=== PATIENT | female | born 1940 | race Caucasian/White ===

== ENCOUNTER 2016-09-13 10:52 | Inpatient (IN) | payer MEDICARE ==
[2016-09-13] MEDS ORDERED: Ondansetron INJ* 2 MG/ML VIAL ONE (11:03)
[2016-09-13] MEDS ORDERED: Midazolam* 1 MG/ML 5 ML VIAL (5 MG) ONE (11:03)
[2016-09-13] MEDS ORDERED: VERAPAMIL 2.5 MG/ML 4 ML VIAL ONE (11:03)
[2016-09-13] MEDS ORDERED: fentaNYL* 50 MCG/ML 2 ML VIAL (100 MCG VIAL) ONE (11:03)
[2016-09-13] MEDS ORDERED: Heparin(*) 1000 UNIT/ML 10 ML VIAL CATH LAB IV ONE (11:03)
[2016-09-13] MEDS ORDERED: Iohexol 350 (CONTRAST) 200 ML MDV IV ONE ×2 (11:04→12:49)
[2016-09-13] MEDS ORDERED: Heparin 2 UNITS/ML IVPREMIX* 2,000 ML IV ONE (11:04)
[2016-09-13] MEDS ORDERED: nitroGLYCERIN DRIP* 500 ML ONE (11:04)
[2016-09-13] MEDS ORDERED: Lidocaine 1% INJ* 10 MG/ML 30 ML SDV ONE (11:04)
[2016-09-13] MEDS ORDERED: Heparin for STEMI(*) 5,000 UNITS/ML 1 ML VIAL IV ONE (11:08)
[2016-09-13] MEDS ORDERED: Ticagrelor* 90 MG TAB PO ONE (11:08)
[2016-09-13] MEDS ORDERED: nitroGLYCERIN DRIP* 25,000 MCG in PREMIX* 0 ML IV ONE (11:08)
[2016-09-13 11:23] LABS: Hematocrit 39 % (35-47); Hemoglobin 12.8 g/dl (12.0-16.0); Mean Corpuscular HGB Conc 33 g/dl (31-36); Mean Corpuscular Hemoglobin 31 pg (27-31); Mean Corpuscular Volume 94 fL (80-97); Mean Platelet Volume 10 um3 (7.4-10.4); Red Blood Count 4.16 10^6/ul (4.0-5.4); Red Cell Distribution Width 14 % (10.5-15)
[2016-09-13] MEDS: Nitroglycerin TAB 0.4 MG* 0.4 MG TAB SL PRN (11:28)
[2016-09-13 11:30] LABS: Albumin 3.9 g/dL (3.2-5.2); BUN/Creatinine Ratio 21.7 (8-20); Calcium 9.2 mg/dL (8.6-10.3); EGFR African American 85.7 (>60); EGFR Non-African American 66.7 (>60); Globulin 3.4 g/dL (2-4); Potassium 3.8 mmol/L (3.5-5.0); Total Bilirubin 0.6 mg/dL (0.2-1.0); Total Protein 7.3 g/dL (6.4-8.9)
[2016-09-13 11:34] LABS: Troponin I 0.03 ng/mL (<0.04)
--- NOTE | 2016-09-13 12:11 | RAD ---
INDICATION: ST elevation myocardial infarction COMPARISON: Chest x-ray dated December 30, 2015 TECHNIQUE: Single AP portable view of the chest was obtained. FINDINGS: Image quality is compromised due to the relative inferiority of a portable chest x-ray. Sternotomy wires are unchanged from the previous chest x-ray. Overlying a AED pads are noted. The heart and mediastinum exhibit normal size and contour. The lungs are grossly clear. There is no evidence of a large pleural effusion. Visualized bones are normal for the patient's age. IMPRESSION: No radiographic evidence for acute cardiopulmonary abnormality on this portable chest x-ray.
[2016-09-13] MEDS ORDERED: Nitroglycerin TAB 0.4 MG* 0.4 MG TAB SL PRN (14:59)
[2016-09-13] MEDS ORDERED: Morphine INJ* 4 MG/ML 1 ML CARPUJECT IV ONE (15:00)
[2016-09-13] MEDS ORDERED: NS 0.9% 1000 ML* 1,000 ML IV SCH (15:00)
[2016-09-13] MEDS ORDERED: Zolpidem TAB* 5 MG PO PRN (15:02)
[2016-09-13] MEDS ORDERED: Acetaminophen TAB* 325 MG PO PRN (15:02)
[2016-09-13] MEDS ORDERED: Ondansetron INJ* 2 MG/ML VIAL IV PRN (15:02)
[2016-09-13] MEDS: Captopril TAB* 12.5 MG PO SCH ×2 (16:00→21:10)
[2016-09-13] MEDS: Metoprolol Tartrate TAB* 25 MG PO SCH (16:02)
[2016-09-13 16:27] LABS: Troponin I 16.26 ng/mL (<0.04)
[2016-09-13] MEDS: Atorvastatin* 80 MG TAB PO SCH (17:47)
[2016-09-13] MEDS: Ticagrelor* 90 MG TAB PO SCH (21:10)
[2016-09-13 21:23] LABS: Troponin I 57.52 ng/mL (<0.04)
[2016-09-14] MEDS: Metoprolol Tartrate TAB* 25 MG PO SCH ×3 (00:18→17:25)
--- NOTE | 2016-09-14 01:32 | HP ---
HISTORY AND PHYSICAL: DATE OF ADMISSION: 09/13/16 PRIMARY CARE PHYSICIAN: Dr. Brody Caraballo. MACHINIST FIRST CLASS: Dr. Sandoval. HISTORY OF PRESENT ILLNESS: A 76-year-old woman with previous bypass grafting and multivessel, multilesion intervention presenting to the ER with high lateral non-ST elevation infarct. We have outside records which I have reviewed. She had bypass grafting in 2007 at [place] with a CASTAÑEDA to the LAD, and a sequential vein graft to diagonal and marginal. Cath on 05/24/08 revealed the vein graft to be occluded, the RCA was normal. The CASTAÑEDA to the LAD was patent, the left main circumflex had 60% to 80 % stenosis, was stented with a 3.0 x 15 drug-eluting stent, the proximal LAD diagonal was stented with a 2.5 x 12 drug-eluting stent, and the ostium of the LAD was balloon dilated 2.5 mm at the left main circumflex stent. On 09/28/08, she had stenting of the distal left main with a 3 x 12 drug-eluting stent. At that time, the LAD filled via the CASTAÑEDA. I believe all these procedures were performed in [place]. On 01/17/10, she had cath again I believe in [place] showing the stents in the circumflex, left main, and LAD were patent. The RCA was patent as was the CASTAÑEDA. She was here a year ago with troponin positive ACS. Cath by Dr. Phelps on 09/13/15 revealed the left main ostium to have high grade restenosis at 85%, the LAD had proximal tubular stenosis followed by occlusion just prior to the LAD diagonal stent. The circumflex had no significant stenosis. The RCA was normal. The CASTAÑEDA was patent and filled the diagonal via retrograde low LAD filling. The ostium of the left main was treated with a 3.0 x 12 Promus Premier drug-eluting stent post dilated to 3.4. She was on Brilinta for a short period of time, switched to Plavix because of cost. She has done well until 9 o'clock this morning when she had the onset of her ischemic pain. She presented in the ER where she had when 1/4-mm ST- elevation and one in aVL with lateral reciprocal depression. She was brought to the senior laboratory technician for cath. She has no PND or orthopnea, but has had exertional dyspnea. PAST MEDICAL HISTORY: Previous bypass grafting, hypertension, hyperlipidemia. MEDICATIONS: Prehospital medications: 1. Toprol-XL 25 mg daily. 2. Lisinopril 5 mg daily. 3. Synthroid unknown mg daily. 4. Plavix 75 daily. 5. Lipitor 80 mg daily. 6. Aspirin 81 mg daily. ALLERGIES: None. FAMILY HISTORY: Positive for premature coronary disease. SOCIAL HISTORY: She is a nonsmoker. REVIEW OF SYSTEMS: General: No weight loss. No fevers. PERSONAL CARE AIDE: No history of TIA or CVA. GI: She has a history of hemorrhoidal bleeding, evaluated with colonoscopy. She had her last episode a week or so ago. Remainder all negative. PHYSICAL EXAMINATION GENERAL: When seen in the ER, she was complaining of a fairly mild chest discomfort which subsequently resolved. VITAL SIGNS: Her blood pressure 184/97. HEENT: Without xanthelasma, scleral injection, or jaundice. EOMs normal. Cranial nerves grossly intact. LUNGS: She had a few rhonchi bilaterally, no dullness to percussion. No rales or wheezes. JVP was not visible. Carotids normal. No bruits. CARDIAC EXAM: Stable sternotomy, apex and RV not palpable, normal S1, S2, no gallop, murmur, or rub. ABDOMEN: Soft, nontender, aorta not palpable. No abdominal bruit, liver not palpable. Femoral pulses 2+. No bruits. EXTREMITIES: Radial pulses 2+. Pedal pulses 2+. She had no cyanosis, clubbing , or edema. SKIN: Warm and well perfused. PSYCH: She is oriented and appropriate. LABORATORY DATA: Chemistry is notable for random sugar of 155, CPK 694, but MB only 1.5 and troponin 0.03. BNP 173. Her LDL on Lipitor 80 is 127. Hemoglobin 11.9, MCV 98, normal platelet count. Chest x-ray without heart failure or infiltrate. EKG as above. IMPRESSION: 1. High lateral non-ST elevation infarct. She underwent emergent catheterization. She has had previous bypass with subsequent vein graft occlusion, has had multiple revascularization procedures of the protected left main - circumflex as well as the LAD diagonal. 2. Dyslipidemia. She is hyperlipidemic, on Lipitor 80, we will add . 3. History of intermittent internal hemorrhoidal bleeding. 4. LV regional systolic dysfunction. At last cath, the EF was 65 on post PVC beat with mid anterolateral hypokinesis. CC: Dr. Caraballo; Dr. Sandoval* [id number]/[facility] #: [id number] [place]
[2016-09-14 02:33] LABS: Troponin I 60.5 ng/mL (<0.04)
[2016-09-14 05:37] LABS: Hematocrit 35 % (35-47); Hemoglobin 11.5 g/dl (12.0-16.0); Mean Corpuscular HGB Conc 33 g/dl (31-36); Mean Corpuscular Hemoglobin 31 pg (27-31); Mean Corpuscular Volume 93 fL (80-97); Mean Platelet Volume 10 um3 (7.4-10.4); Red Blood Count 3.76 10^6/ul (4.0-5.4); Red Cell Distribution Width 14 % (10.5-15)
[2016-09-14] MEDS: Nitroglycerin TAB 0.4 MG* 0.4 MG TAB SL PRN (05:41)
[2016-09-14 05:50] LABS: BUN/Creatinine Ratio 19.7 (8-20); Calcium 8.9 mg/dL (8.6-10.3); EGFR African American 94.9 (>60); EGFR Non-African American 73.8 (>60); Potassium 3.6 mmol/L (3.5-5.0)
[2016-09-14] MEDS: Ticagrelor* 90 MG TAB PO SCH ×2 (08:43→22:11)
[2016-09-14] MEDS: Aspirin Low Dose CHEW TAB* 81 MG PO SCH (08:44)
[2016-09-14] MEDS: Captopril TAB* 12.5 MG PO SCH ×3 (08:44→22:04)
[2016-09-14 09:27] LABS: Troponin I 51.52 ng/mL (<0.04)
[2016-09-14] MEDS: Atorvastatin* 80 MG TAB PO SCH (17:25)
--- NOTE | 2016-09-14 22:52 | CATH ---
CATHETERIZATION REPORT: DATE: 09/13/16 PRIMARY: Dr. Carbaallo. MACHINE ROOM OPERATOR: Dr. Sandoval. PROCEDURES: Left radial artery access, right femoral artery access, bilateral selective coronary cineangiography, CASTAÑEDA angiography, saphenous vein graft angiography, left heart catheterization, left ventriculography. HISTORY: A 76-year-old woman with bypass grafting in 2007 with a CASTAÑEDA to the LAD, sequential vein graft to diagonal and circumflex OM. One year later, cath demonstrated occlusion of the vein graft. Subsequently, she has had stenting of the left main ostium, LAD into the diagonal, and left main into the circumflex. One year ago, she had re-stenting of the left main ostium for in- stent restenosis. At that time, angiogram showed an occluded LAD, patent CASTAÑEDA to the LAD which filled the diagonal antegrade through the stented segment which had proximal mild stenosis. The RCA was normal. She had anterolateral hypokinesis. She now presents with a high lateral non-ST elevation infarct with less than [address] elevation. Brilinta was changed in the past to Plavix because of cost. She has been compliant with her dual antiplatelet therapy. DESCRIPTION OF PROCEDURE: Left radial artery sheath: 6-F slender. Because of a brachial loop, catheter torque was severely impaired with 5-Estonian catheters. I did not upsize to 6-Estonian as she is a small woman. Instead, access was switched to the right common femoral where 6-Estonian sheath was placed. MEDICATIONS: 1. Subcu lidocaine. 2. IV Versed. 3. IV fentanyl. 4. In the ER, she received heparin and Brilinta loading dose. ADDITIONAL MEDICATIONS: 1. Heparin 4000 units. 2. IV nitroglycerin infusion continued. 3. Heparin 2000 units. DIAGNOSTIC CATHETERS: 5-F TIG from the left radial, 6-FL 3.5, EBU guide for the left coronary from the right common femoral access, 6-FR4, 6F JOY, 6F pigtail. The CASTAÑEDA ostium was engaged fairly well with the CASTAÑEDA catheter, better engagement likely would be achieved with a shorter tip CASTAÑEDA catheter. HEMODYNAMICS: Initial BP 138/80, LV 151/16-27, no aortic valve gradient on pullback. ANGIOGRAPHY: Left antecubital. The left brachial artery was injected. There is tortuosity at the elbow which was easily traversed with a Wholey wire, but subsequent catheter torque was very poor. Radial artery is about the size of a 5- Estonian catheter. The brachial is much larger. Left main: There is previously placed left main stent which is within the prior left main stent. Left main take-off is very superior. This left main stent extends into the circumflex. Left main stent has no re-stenosis, was very difficult to engage coaxially perhaps because the stent protrudes somewhat into the left sinus. LAD: The LAD is moderate as previously placed stent at the LAD diagonal junction which is beyond the LAD occlusion which is proximal. The CTL segment is short. Distal LAD fills from the CASTAÑEDA. Circumflex: The circumflex is moderate, not dominant, supplies a small first marginal and a number of small posterolaterals. The circumflex has no significant stenosis. RCA: The RCA is dominant, moderate, supplies a moderate PDA and posterolateral , has no significant stenosis. I see no RCA to diagonal collaterals. CASTAÑEDA: The JOY is moderate, patent, inserts into the mid LAD without insertion stenosis, fills the LAD antegrade to the apex as well as retrograde to the previously placed stent which extends from the LAD into the diagonal. The diagonal then fills antegrade from the retrograde portion of the LAD. The stent within the LAD segment is patent back to 2 mm to its proximal occlusion point. The antegrade part of the stent extending into the diagonal has railroad tracking of contrast suggestive of high-grade in-stent restenosis. The distal diagonal has a distribution similar to the LAD, has KARI-3 flow. At this point, her chest pain had resolved. Revascularization of the proximal diagonal stent is feasible, but technically potentially challenging, may best be done via retrograde recanalization of the LAD followed by antegrade recanalization of the LAD into the diagonal. LV gram: There is akinesis of the anterolateral wall and apex, visually estimated LVEF 35%. There is 1+ MR. Right common femoral: Sheath entry is in segment 2. There is no stenosis. CONCLUSION: 1. Non-ST elevation infarct, high lateral, due to high-grade in-stent restenosis at the LAD diagonal ostial stent, progressed compared to catheterization 1 year prior. The LAD TRUCK DRIVING is long-standing and short. Revascularization was not pursued because of complexity, resolution of symptoms , KARI-3 flow. She will be need to be evaluated for TRUCK DRIVING revascularization. 2. Left radial/brachial tortuosity rendering catheter torque suboptimal. 3. LV systolic dysfunction with regional wall motion abnormality. 4. Elevated LVEDP, otherwise normal left-sided hemodynamics. 5. Successful left radial artery puncture. 6. Successful hemostasis, right common femoral with Angio-Seal. CC: Dr. Caraballo; Burak Underwood * [id number]/[facility] #: [id number] [facility]
[2016-09-15] MEDS: Metoprolol Tartrate TAB* 25 MG PO SCH (03:22)
[2016-09-15 08:27] LABS: BUN/Creatinine Ratio 17.1 (8-20); Calcium 8.8 mg/dL (8.6-10.3); EGFR African American 86.9 (>60); EGFR Non-African American 67.6 (>60); Potassium 3.7 mmol/L (3.5-5.0)
[2016-09-15] MEDS ORDERED: Lisinopril TAB* 5 MG PO SCH (09:00)
[2016-09-15 09:44] LABS: Troponin I 17.19 ng/mL (<0.04)
[2016-09-15] MEDS: Lisinopril TAB* 5 MG PO SCH ×2 (09:45→21:25)
[2016-09-15] MEDS: Aspirin Low Dose CHEW TAB* 81 MG PO SCH (09:45)
[2016-09-15] MEDS: Metoprolol Tartrate TAB* 50 mg PO SCH ×2 (09:45→21:26)
[2016-09-15] MEDS: Ticagrelor* 90 MG TAB PO SCH ×2 (09:45→21:26)
[2016-09-15] MEDS: Atorvastatin* 80 MG TAB PO SCH (16:39)
[2016-09-16 08:29] LABS: BUN/Creatinine Ratio 18.3 (8-20); Calcium 8.8 mg/dL (8.6-10.3); EGFR African American 86.9 (>60); EGFR Non-African American 67.6 (>60); Potassium 3.6 mmol/L (3.5-5.0)
[2016-09-16] MEDS: Ticagrelor* 90 MG TAB PO SCH ×2 (09:27→21:13)
[2016-09-16] MEDS: Lisinopril TAB* 5 MG PO SCH ×2 (09:27→21:12)
[2016-09-16] MEDS: Aspirin Low Dose CHEW TAB* 81 MG PO SCH (09:28)
[2016-09-16] MEDS: Metoprolol Tartrate TAB* 50 mg PO SCH ×2 (09:28→21:12)
--- NOTE | 2016-09-16 12:57 | ECHO ---
Patient: COTY ISBELL [facility] Rec#: [id number] : 1940 Date: 09/16/2016 Age: 76y Height: 152.4 cm / 60.0 in Weight: 66.22 kg / 145.9 lbs Sex: F BSA: 1.63 Room#: 442 Admit Date#: 09/13/2016 Type: Inpatient Referring: Anderson Phelps MD Reading: Anderson Phelps MD Mold Yarn Supervisor: Glenna Ortiz CHANTELL CC: Brody Caraballo MD Transthoracic Echocardiogram Indication: NSTEMI/CAD BP: 131/50 HR: 63 Rhythm: NSR Findings History: CABG 2007,[place] 2007,PCIs in the past,HLD. Technical Comments: The study quality is good. Completed at 1115. Left Ventricle: There is a prominent septal knuckle. There is a focal wall motion abnormality present.The lateral apical wall and distal anterolateral wall appear mild to moderately hypokinetic. There is mildly decreased left ventricular systolic function. The estimated ejection fraction is 40-45%. Visually estimated LVEF is 45 % Abnormal left ventricular diastolic function is observed. Left Atrium: The left atrium is normal in size. Right Ventricle: The right ventricular cavity size is normal. The right ventricular global systolic function is normal. Right Atrium: The right atrial cavity size is normal. Aortic Valve: The aortic valve is trileaflet. There is mild to moderate aortic regurgitation. There is no evidence of aortic stenosis. Mitral Valve: The mitral valve leaflets are mildly thickened. There is mild mitral regurgitation. There is no evidence of mitral stenosis. Tricuspid Valve: The tricuspid valve leaflets are normal. There is mild to moderate tricuspid regurgitation. There is no tricuspid stenosis. Pulmonic Valve: The pulmonic valve appears normal. There is mild pulmonic regurgitation. There is no pulmonic stenosis. Pericardium: A pericardial fat pad is visualized. Aorta: There is no dilatation of the ascending aorta. There is no dilatation of the aortic arch. There is no dilation of the aortic root. Pulmonary Artery: The main pulmonary artery appears normal. Venous: The inferior vena cava appears normal in size. There is a greater than 50% respiratory change in the inferior vena cava dimension. Conclusions There is a focal wall motion abnormality present as described above. There is mildly decreased left ventricular systolic function. Visually estimated LVEF is 45 % There is mild mitral regurgitation. There is mild to moderate aortic regurgitation. There is mild to moderate tricuspid regurgitation. Compared to report of study from 05/22/2008 the LV systolic dusfunction is new, the degree of AR has increased (was mild). Measurements Name Value Normal Range RVIDd (AP) 2D 3.2 cm (0.9 - 2.6) RVDdMajor (2D) 2.5 cm (2.2 - 4.4) RAd ISD 4CH 3.5 cm (3.4 - 4.9) RA (A4C)W 2.8 cm (2.9 - 4.6) IVSd (2D) 1.7 cm (0.6 - 1) LVPWd (2D) 1.2 cm (0.6 - 1) LVIDd (2D) 3.6 cm (3.6 - 5.4) LVIDs (2D) 2.9 cm - LV FS (2D) 19 % (25 - 45) Aortic Annulus 1.9 cm (1.4 - 2.6) Ao root diameter (2D) 3.3 cm (2.1 - 3.5) Ascending Ao 3.3 cm (2.1 - 3.4) Aortic arch 2 cm (1.8 - 3.4) Descending Ao 0.8 cm - LA dimension (AP) 2D 3.4 cm (2.3 - 3.8) LAd ISD 4CH 3.2 cm (2.9 - 5.3) LA ISD 4CH W 3 cm (2.5 - 4.5) Name Value Normal Range LA ESV SP 4CH (A/L) 16 ml - LA ESV SP 2CH (A/L) 27 ml - LA ESV BP (A/L) 25 ml - LA ESV BP (A/L) index 15.15 ml/m2 - LA ESV SP 4CH (MOD) 16 ml - LA ESV SP 2CH (MOD) 25 ml - Name Value Normal Range MV E-wave Vmax 0.9 m/sec - MV deceleration time 178 msec - MV A-wave Vmax 1.04 m/sec - MV E:A ratio 0.86 ratio - LV septal e' Vmax 0.06 m/sec - LV lateral e' Vmax 0.06 m/sec - LV E:e' septal ratio 15 ratio - LV E:e' lateral ratio 15 ratio - Name Value Normal Range AV Vmax 1.5 m/sec - AV VTI 32.3 cm - AV peak gradient 9.16 mmHg - AV mean gradient 4.9 mmHg - LVOT Vmax 0.9 m/sec - LVOT VTI 20.6 cm - LVOT peak gradient 3.5 mmHg - LVOT mean gradient 2.2 mmHg - AR PHT 415 msec - AR peak gradient 50.1 mmHg - Name Value Normal Range TR Vmax 2.5 m/sec - TR peak gradient 25 mmHg - RAP 3 mmHg - RVSP 28 mmHg - IVC diameter 1.5 cm - Name Value Normal Range PV Vmax 0.9 m/sec - PV peak gradient 2.96 mmHg -
[2016-09-16] MEDS: Atorvastatin* 80 MG TAB PO SCH (16:24)
--- NOTE | 2016-09-16 16:32 | ED ---
Rachel Kaur Adam, scribed for Jonnathan Holder MD on 09/13/16 at 1102 . HPI Chest Pain - HPI Summary HPI Summary: A 76 y/o female presents to the ED BIBA for a STEMI called in the field by EMS. Patient had a sudden onset of chest pain (05/23) that started around 09:00 this morning with associated SOB, nausea, and vomiting. At home, she took 324 aspirin and used 2 of her own nitroglycerin with no alleviation of pain. Patient has a significant cardiac history with CABG at [facility] in 2007 and September 2008 (circumflex and diagonal) and on 09/12/[address] Phelps. She denies any diabetes, alcohol, or tobacco use. - History of Current Complaint Chief Complaint: EDChestPainROMI Time Seen by Provider: 09/13/16 10:53 Hx Obtained From: Patient, EMS Onset/Duration: Started Hours Ago - 09:00 Time of Onset: 09:00 Timing: Constant Initial Severity: Moderate Current Severity: Severe Pain Intensity: 9 Pain Scale Used: 0-10 Numeric Chest Pain Location: Diffuse Chest Pain Radiates: Yes Chest Pain Radiates To:: Arm, Neck Alleviating Factor(s): Nothing Associated Signs and Symptoms: Positive: Shortness of Breath, Nausea, Vomiting - Allergy/Home Medications Allergies/Adverse Reactions: Allergies Allergy/AdvReac Type Severity Reaction Status Date / Time Cats Allergy Intermediate Congestion Uncoded 06/13/15 17:56 Home Medications: Home Medications Atorvastatin* [Lipitor*] 80 mg PO DAILY 09/13/16 [History Confirmed 09/13/16] PMH/Surg Hx/FS Hx/Imm Hx Endocrine/Hematology History: Reports: Hx Thyroid Disease Denies: Hx Diabetes Cardiovascular History: Reports: Hx Hypertension, Hx Myocardial Infarction - 2014, 2 stents placed by [facility], Other Cardiovascular Problems/Disorders Denies: Hx Congestive Heart Failure, Hx Pacemaker/ICD Respiratory History: Denies: Hx Asthma, Hx Chronic Obstructive Pulmonary Disease (COPD), Other Respiratory Problems/Disorders GI History: Reports: Other GI Disorders - 'sensitive stomach' Denies: Hx Ulcer Sensory History: Reports: Hx Contacts or Glasses Opthamlomology History: Reports: Hx Contacts or Glasses - Surgical History Surgery Procedure, Year, and Place: Triple Bypass 2007, Stents placed 2008 and 2014. Hysterectomy Infectious Disease History: Denies: Hx Clostridium Difficile, Hx Hepatitis, Hx Human Immunodeficiency Virus (HIV), History Other Infectious Disease, Traveled Outside the [place] in Last 30 Days - Family History Known Family History: Positive: Cardiac Disease - bypass, CHF, father - [place] - Social History Alcohol Use: None Hx Substance Use: No Substance Use Type: Reports: None Hx Tobacco Use: No Smoking Status (MU): Never Smoked Tobacco Review of Systems Constitutional: Negative Negative: Fever, Chills Eyes: Negative Negative: Erythema ENT: Negative Negative: Sore Throat Positive: Chest Pain Positive: Shortness Of Breath. Negative: Cough Positive: Vomiting, Nausea. Negative: Abdominal Pain Genitourinary: Negative Negative: dysuria, hematuria Musculoskeletal: Negative Negative: Myalgia, Edema Skin: Negative Negative: Rash Neurological: Negative, Other - Negative: dizziness Psychological: Normal All Other Systems Reviewed And Are Negative: Yes Physical Exam - Summary Physical Exam Summary: Constitutional: Well-developed, Well-nourished, Alert. (-) Distressed Skin: Warm, Dry HENT: Normocephalic; Atraumatic Eyes: Conjunctiva normal Neck: Musculoskeletal ROM normal neck. (-) JVD, (-) Stridor, (-) Tracheal deviation Cardio: Rhythm regular, rate normal, Heart sounds normal; Intact distal pulses; The pedal pulses are 2+ and symmetric. Radial pulses are 2+ and symmetric. (-) Murmur Pulmonary/Chest wall: Effort normal. (-) Respiratory distress, (-) Wheezes, (-) Rales Abd: Soft, (-) Tenderness, (-) Distension, (-) Guarding, (-) Rebound Musculoskeletal: (-) Edema Lymph: (-) Cervical adenopathy Neuro: Alert, Oriented x3 Psych: Mood and affect Normal Diagnostics - Laboratory Result Diagrams: 09/13/16 11:03 09/13/16 11:03 Lab Statement: Any lab studies that have been ordered have been reviewed, and results considered in the medical decision making process. - Radiology CXR Xray Interpretation: No Acute Changes Radiology Interpretation Completed By: Radiologist - EKG 10:52 Cardiac Rate: NL - 66 EKG Interpretation: 1 mm elevation in I and AVL. Q wave in V1-V5. Chest Pain Course/Dx - Course Course Of Treatment: Patient's CP went from a 05/23 when she arrived in the ED to a 2 when she left for catheterization. - Diagnoses Provider Diagnoses: STEMI Discharge - Discharge Plan Condition: Guarded Disposition: ADMITTED TO [facility] The documentation as recorded by the Rachel valentin Adam accurately reflects the service I personally performed and the decisions made by me, Jonnathan Holder MD.
[2016-09-17] MEDS: Lisinopril TAB* 5 MG PO SCH (08:12)
[2016-09-17] MEDS: Ticagrelor* 90 MG TAB PO SCH (08:12)
[2016-09-17] MEDS: Metoprolol Tartrate TAB* 50 mg PO SCH (08:12)
[2016-09-17] MEDS: Aspirin Low Dose CHEW TAB* 81 MG PO SCH (08:12)
[2016-09-17 08:14] VITALS: BP 125/58
[2016-09-17] MEDS ORDERED: amLODIPine TAB* 5 MG PO SCH (18:00)
--- NOTE | 2016-09-18 11:27 | DS ---
DISCHARGE SUMMARY: DATE OF ADMISSION: 09/13/2016. DATE OF DISCHARGE: 09/17/2016. FINAL DIAGNOSES: 1. Non-ST elevation myocardial infarction. 2. Stenotic coronary artery disease. 3. Hypothyroidism. 4. Hypertension. 5. Hyperlipidemia. HISTORY OF PRESENT ILLNESS: The patient is a pleasant 76-year-old female who presented on 09/13/16 to [facility] in the throes of a high-lateral non- ST elevation myocardial infarction. Please refer to Dr. James' H and P for complete details. She was taken emergently to the cardiovascular laboratory where cardiac catheterization revealed patent CASTAÑEDA graft to the LAD that retrograde filled back to a higher diagonal branch that had been stented in the past. This stented area showed diffuse disease with possible thrombus as well, but by the timing of this injection showed KARI 3 flow with significant stenosis left. The choctaw LAD was totally occluded after its proximal area. Prior stents in the left main into the circumflex were widely patent. A vein graft that was known to skip from the diagonal to the obtuse marginal branch was totally occluded. The right coronary artery was a dominant vessel with no significant stenosis. Given these findings, Dr. James advanced medical management with dual antiplatelet and beta- rolanda therapy and CATE inhibition as she had significant left ventricular systolic function on left ventriculogram at the time of the procedure with an EF estimated at 35% with 1+ mitral regurgitation. During the course of the hospitalization, a transthoracic echocardiogram was performed on the , which revealed improvement of overall LV function from 35% up to 45% with focal lateral apical and distal anterolateral wall, [id number] hypokinesis. There was mild mitral regurgitation identified with [id number] aortic regurgitation and mild-to- moderate tricuspid regurgitation. Over the course of the hospitalization with medical management, she did well, was up and about using a walker without having any significant bouts of chest, throat, jaw or arm discomfort similar to presentation. She had mild shortness of breath at rest that was felt to be most likely secondary to Brilinta therapy and caffeine was instituted twice a day to counteract this. PHYSICAL EXAMINATION: On the day of discharge, her examination revealed blood pressure 125/58; pulse was in the 60s, regular; respirations 16; O2 saturation 95% on room air. Neck was supple. No increased JVP. Carotid with good upstroke and volume without bruits. Conjunctivae were pink. Sclerae clear. Mouth revealed moist mucosa. Lungs revealed no accessory muscle usage. There was good excursion. Lungs were relatively clear to A and P. Heart revealed no visible heaves, no palpable heaves or thrills. Normal S1, S2 with a faint systolic murmur. No significant diastolic murmur. Abdomen was soft, nontender. The left radial artery wound site was well healed (of note, the left radial artery approach was initially attempted but aborted after there was difficulty with torquing the catheter. This approach was aborted and the procedure was finished from the right femoral artery approach). The right femoral artery area was well-healed as well. Distal pulses were intact. Neuro : The patient was alert and oriented with normal mentation. Musculoskeletal: The patient with fairly normal gait. Psychiatric: The patient with normal affect. LABORATORY DATA: Last laboratory test from 09/16/16 showed normal BUN and creatinine of 15 and 0.8. Of note, during the course of the hospitalization, the CPK on presentation was 694 but the MB was only 1.5 and the troponin was 0.03. Peak CPK, MB, and troponins occurred at approximately 8 hours after admission with a total CPK of 1440, an MB of 170, and a troponin at that point of 57, that peaked 6 hours later at 60. MEDICATIONS AT THE TIME OF DISCHARGE: Included: 1. Aspirin 81 mg a day. 2. Ticagrelor 90 mg twice a day 3. Norvasc 2.5 mg in the evening. 4. Lisinopril 2.5 mg twice a day. 5. Metoprolol tartrate 50 mg twice a day. 6. Nitroglycerin as needed. DISCHARGE INSTRUCTIONS: The patient will be following up with Dr. Yaniv Sandoval on September 21, and that appointment was given to her to make sure she will follow up. I personally spoke with Dr. Sandoval to give him Dr. James' and our recommendation regarding the need for revascularization attempt of the totally occluded LAD, either antegrade through the left main stent or else with more difficulty in a retrograde approach down the CASTAÑEDA graft. He understood this and will be setting up for this after he sees her in the office. Her other medication at the time of discharge included atorvastatin 80 mg a day and she was given a script for Zetia 10 mg a day to start in addition to the atorvastatin in order to get her cholesterol back down as her total cholesterol at the time of admission was 127. She will follow these risk factors up with Dr. Caraballo and also with Dr. Sandoval. The patient was given a cardiac education booklet. She was also given a DVD of her cath and her echo to give to Dr. Sandoval with the actual reports. Copies of the cath report, and the H and P, and all EKGs, and echo reports were faxed over to Dr. Sandoval's office. CC: Dr. Brody Caraballo; Dr. Cb Sandoval, Appellate Law Clerk, at the [facility] on [address] in [place]* [id number]/CPS #: [id number]
== END 2016-09-17 16:20 | disposition home or self-care (01) | DRG 281 ==
LOC: ED 10:52 → ICU 11:20 → MEDTELE 09-15 22:15
PROVIDERS: ADMIT Internal Medicine Cardiovascular Disease; ATTEND Internal Medicine Cardiovascular Disease
PROC: B2151ZZ Fluoroscopy of Left Heart using Low Osmolar Contrast (ICD-10-PCS; 2016-09-13)
PROC: B2131ZZ Fluoroscopy of Multiple Coronary Artery Bypass Grafts using Low Osmolar Contrast (ICD-10-PCS; 2016-09-13)
PROC: 4A023N7 Measurement of Cardiac Sampling and Pressure, Left Heart, Percutaneous Approach (ICD-10-PCS; 2016-09-13)
PROC: B31J1ZZ Fluoroscopy of Left Upper Extremity Arteries using Low Osmolar Contrast (ICD-10-PCS; 2016-09-13)
PROC: B2111ZZ Fluoroscopy of Multiple Coronary Arteries using Low Osmolar Contrast (ICD-10-PCS; principal; 2016-09-13 11:30)
DX: T82.855A Stenosis of coronary artery stent, initial encounter (principal); I21.4 Non-ST elevation (NSTEMI) myocardial infarction; I47.2 Ventricular tachycardia; Z91.048 Other nonmedicinal substance allergy status; Z95.1 Presence of aortocoronary bypass graft; I10 Essential (primary) hypertension; I25.2 Old myocardial infarction; Z82.49 Family history of ischemic heart disease and other diseases of the circulatory system; E78.5 Hyperlipidemia, unspecified; I25.10 Atherosclerotic heart disease of native coronary artery without angina pectoris; E03.9 Hypothyroidism, unspecified; I08.3 Combined rheumatic disorders of mitral, aortic and tricuspid valves; Z79.82 Long term (current) use of aspirin; I77.1 Stricture of artery; Y84.0 Cardiac catheterization as the cause of abnormal reaction of the patient, or of later complication, without mention of misadventure at the time of the procedure; Z79.02 Long term (current) use of antithrombotics/antiplatelets
CPT/HCPCS: 36415; 71010; 80048; 80053; 82550; 82553; 83605; 83721; 83880; 84484; 85025; 85610; 85730; 87641; 93005; 93306; 93459; 99285; A9270-GY; C1760; C1887; J1644; J2250; J2405; J3010

== ENCOUNTER 2016-09-26 18:24 | Inpatient (IN) | payer MEDICARE ==
[2016-09-26 19:07] LABS: Hematocrit 34 % (35-47); Hemoglobin 11.1 g/dl (12.0-16.0); Mean Corpuscular HGB Conc 33 g/dl (31-36); Mean Corpuscular Hemoglobin 30 pg (27-31); Mean Corpuscular Volume 93 fL (80-97); Mean Platelet Volume 10 um3 (7.4-10.4); Red Blood Count 3.67 10^6/ul (4.0-5.4); Red Cell Distribution Width 14 % (10.5-15); White Blood Count 8.4 10^3/ul (3.5-10.8)
--- NOTE | 2016-09-26 19:10 | RAD ---
INDICATION: Chest pain COMPARISON: September 13, 2016 TECHNIQUE: An AP portable view obtained at 1845 hours is submitted. FINDINGS: Bones/Soft Tissues: There are no acute bony findings. There is sternotomy Cardiomediastinal: The cardiomediastinal silhouette is normal. Lungs: There are no infiltrates. Pleura: There are no pleural effusions. Other: None IMPRESSION: POSTOPERATIVE CHANGE. NO ACTIVE DISEASE.
[2016-09-26 19:24] LABS: Albumin 3.8 g/dL (3.2-5.2); BUN/Creatinine Ratio 15.7 (8-20); Calcium 9.2 mg/dL (8.6-10.3); EGFR African American 52.5 (>60); EGFR Non-African American 40.8 (>60); Magnesium 2.2 mg/dL (1.9-2.7); Potassium 3.9 mmol/L (3.5-5.0); Total Bilirubin 0.5 mg/dL (0.2-1.0); Total Protein 6.8 g/dL (6.4-8.9)
[2016-09-26 19:34] LABS: Troponin I 1.71 ng/mL (<0.04)
[2016-09-26 20:08] LABS: TSH (Thyroid Stimulating Horm) 4.58 mcIU/mL (0.34-5.60)
--- NOTE | 2016-09-26 21:48 | ED ---
Yuniel Kaur Billy, scribed for Rodolfo Gil MD on 09/26/16 at 1903 . HPI Chest Pain - HPI Summary HPI Summary: Patient is a 76 year-old female coming to [facility] presenting with constant chest pain starting earlier tonight, lasting approximately 20 minutes. Her daughter reports that her symptoms began shortly after exertion. Her pain was resolved with ASA and 2x NTG STEAM OVEN OPERATOR. She states that her symptoms felt similar to a STEMI she had 2 weeks ago; she describes SOB, nausea, and diaphoresis today. She was discharged from [place] today after an unsuccessful attempt to put in a stent. - History of Current Complaint Chief Complaint: EDChestPainROMI Time Seen by Provider: 09/26/16 18:27 Hx Obtained From: Patient, Family/Auto Collision Repair Instructor Onset/Duration: Started Hours Ago, Resolved Timing: Constant, Lasting Minutes - 20 minutes Initial Severity: Moderate Current Severity: Mild Chest Pain Location: Diffuse Chest Pain Radiates: No Aggravating Factor(s): Exertion Alleviating Factor(s): Nothing Associated Signs and Symptoms: Positive: Chest Pain, Shortness of Breath, Diaphoresis, Nausea - Additional Pertinent History Primary Care Physician: [id number] - Allergy/Home Medications Allergies/Adverse Reactions: Allergies Allergy/AdvReac Type Severity Reaction Status Date / Time Cats Allergy Intermediate Congestion Uncoded 06/13/15 17:56 PMH/Surg Hx/FS Hx/Imm Hx Endocrine/Hematology History: Reports: Hx Thyroid Disease Denies: Hx Diabetes Cardiovascular History: Reports: Hx Hypercholesterolemia, Hx Hypertension, Hx Myocardial Infarction - 2015, 2 stents placed by [facility], Other Cardiovascular Problems/Disorders Denies: Hx Congestive Heart Failure, Hx Pacemaker/ICD Respiratory History: Denies: Hx Asthma, Hx Chronic Obstructive Pulmonary Disease (COPD), Other Respiratory Problems/Disorders GI History: Reports: Hx Gall Bladder Disease, Other GI Disorders - 'sensitive stomach' Denies: Hx Gastrointestinal Bleed, Hx Ulcer Musculoskeletal History: Reports: Hx Back Problems - ruptured disk, cortizone injections Sensory History: Reports: Hx Contacts or Glasses Opthamlomology History: Reports: Hx Contacts or Glasses - Surgical History Surgery Procedure, Year, and Place: Triple Bypass 2007, Stents placed 2008 and 2015. Hysterectomy Infectious Disease History: No Infectious Disease History: Denies: Hx Clostridium Difficile, Hx Hepatitis, Hx Human Immunodeficiency Virus (HIV), History Other Infectious Disease, Traveled Outside the [place] in Last 30 Days - Family History Known Family History: Positive: Cardiac Disease - bypass, CHF, father - ID - Social History Alcohol Use: None Hx Substance Use: No Substance Use Type: Reports: None Hx Tobacco Use: No Smoking Status (MU): Never Smoked Tobacco Review of Systems Positive: Skin Diaphoresis Positive: Chest Pain Positive: Shortness Of Breath Positive: Nausea All Other Systems Reviewed And Are Negative: Yes Physical Exam - Summary Physical Exam Summary: VITAL SIGNS: Reviewed. GENERAL: Patient is a well developed and nourished female who is lying comfortable in the stretcher. Patient is not in any acute respiratory distress. HEAD AND FACE: No signs of trauma. No ecchymosis, hematomas or skull depressions. No sinus tenderness. EYES: PERRLA, EOMI x 2, No injected conjunctiva, no nystagmus. EARS: Hearing grossly intact. Ear canals and tympanic membranes are within normal limits. MOUTH: Oropharynx within normal limits. NECK: Supple, trachea is midline, no adenopathy, no JVD, no carotid bruit, no c- spine tenderness, neck with full ROM. CHEST: Symmetric, no tenderness at palpation LUNGS: Clear to auscultation bilaterally. No wheezing or crackles. CVS: Regular rate and rhythm, S1 and S2 present, no murmurs or gallops appreciated. ABDOMEN: Soft, non-tender. No signs of distention. No rebound no guarding, and no masses palpated. Bowel sounds are normal. EXTREMITIES: FROM in all major joints, no edema, no cyanosis or clubbing. Left arm with positive swelling and ecchymosis after cardiac cath. No induration and signs of cellulitis. NEURO: Alert and oriented x 3. No acute neurological deficits. Speech is normal and follows commands. SKIN: Dry and warm Triage Information Reviewed: Yes Vital Signs On Initial Exam: Initial Vitals Temp Pulse Resp BP Pulse Ox 97.5 F 68 14 108/60 95 09/26/16 18:28 09/26/16 18:28 09/26/16 18:28 09/26/16 18:28 09/26/16 18:28 Vital Signs Reviewed: Yes Diagnostics - Vital Signs Vital Signs Temp Pulse Resp BP Pulse Ox 09/26/16 18:28 97.5 F 68 14 108/60 95 - Laboratory Result Diagrams: 09/26/16 19:01 09/26/16 19:01 Lab Statement: Any lab studies that have been ordered have been reviewed, and results considered in the medical decision making process. - Radiology CXR Xray Interpretation: No Acute Changes Radiology Interpretation Completed By: Radiologist - EKG 1821 EKG Interpretation: NSR 70 bpm; TWI in I, aVL, V3-V6 EKG Comparison: No Significant Change - Compared to 09/16/16 Re-Evaluation - Re-Evaluation First Eval Re-Evaluation Time: 21:22 Change: Unchanged Comment: She remains asymptomatic. Chest Pain Course/Dx - Course Assessment/Plan: Patient is a 76 year-old female coming to [facility] [place] presenting with constant chest pain starting earlier tonight, lasting approximately 20 minutes. Her daughter reports that her symptoms began shortly after exertion. Her pain was resolved with ASA and 2x NTG STEAM OVEN OPERATOR. She states that her symptoms felt similar to a STEMI she had 2 weeks ago; she describes SOB, nausea, and diaphoresis today. She was discharged from [place] today after an unsuccessful attempt to put in a stent. Bloodwork WNL except for a slight normocytic normochromic anemia, creatinine of 1.27, trop of 1.71, and BNP of 329. CXR shows no active disease. EKG shows a sinus rhythm without any changes compared to a previous EKG on 09/16/16. At this point I discussed the case with Dr. Shore from [place], who is covering for Dr. Luciano, the patient's logistic manager, and he recommended that the patient be admitted here to track the troponins. If her troponin decreases, she can be discharged home, but if it increases, he should be notified for further instructions. At this point, the patient is hemodynamically stable, A&Ox3. I discussed the case with Dr. Valenzuela, who accepted the patient for admission. - Chest Pain Differential Diagnosis/HQI/PQRI: Acute ID, ACS, Angina, Chest Wall, Lower Respiratory Infection - Diagnoses Provider Diagnoses: chest pain with no ACS - Provider Notifications Discussed Care Of Patient With: Dr. Shore ([place]) @ 2129: recommends admitting the patient to [facility] [place] and monitoring troponin overnight; should troponin increase, he recommends having the patient transferred to [place]. Dr. Valenzuela ( hospitalist) @ 2131: accepts admission. Discharge - Discharge Plan Condition: Stable Disposition: ADMITTED TO [facility] Referrals: Brody Caraballo MD [Primary Care Provider] - The documentation as recorded by the Yuniel valentin Billy accurately reflects the service I personally performed and the decisions made by me, Rodolfo Gil MD.
[2016-09-26] MEDS ORDERED: Nitroglycerin TAB 0.4 MG* 0.4 MG TAB SL PRN (23:01)
[2016-09-26] MEDS: Metoprolol Tartrate TAB* 50 mg PO SCH (23:57)
[2016-09-26] MEDS: Lisinopril TAB* 5 MG PO SCH (23:57)
[2016-09-26] MEDS: Ticagrelor* 90 MG TAB PO SCH (23:57)
[2016-09-27 01:03] LABS: Urine Bacteria 3+ (Absent); Urine Bilirubin Negative (Negative); Urine Glucose Negative (Negative); Urine Nitrite Positive (Negative)
[2016-09-27] MEDS ORDERED: Levothyroxine TAB* 25 MCG TAB PO SCH (06:00)
[2016-09-27] MEDS ORDERED: Atorvastatin* 80 MG TAB PO SCH (09:00)
[2016-09-27] MEDS ORDERED: Aspirin Low Dose CHEW TAB* 81 MG PO SCH (09:00)
[2016-09-27] MEDS ORDERED: amLODIPine TAB* 5 MG PO SCH (09:00)
[2016-09-27] MEDS: Metoprolol Tartrate TAB* 50 mg PO SCH (10:02)
[2016-09-27] MEDS: Ticagrelor* 90 MG TAB PO SCH (10:02)
[2016-09-27] MEDS: Lisinopril TAB* 5 MG PO SCH (10:03)
--- NOTE | 2016-09-27 13:23 | HP ---
HISTORY AND PHYSICAL: DATE OF ADMISSION: 09/27/16 CHIEF COMPLAINT: Chest pain. HISTORY OF PRESENT ILLNESS: The patient is a 76-year-old woman who was just discharged from this hospital on 09/17/16 after having a non-STEMI, but they were unable to advance the cardiac cath to place a stent, so she was discharged in followup with [facility]. Unfortunately, she went to [facility] and was discharged there this morning with the same results. Subsequent to getting home, at about 1 p.m., she developed a chest pain. The pain was about 9/10 in severity. It was enough that she slid out of the chair to the floor. She had shortness of breath associated with it, nausea and sweating and felt clammy. She said that it felt just like the heart attack she had a couple of week ago. She came to our ER, did have an elevated troponin, but was actually down from what she had before. A call was made to the on-call nurse emergency at [place], who said there was little they could do. So she was admitted just to make sure her troponins do not bump and to medically manage her at this point. The patient was in agreement with that plan and in fact wanted to go home as soon as she was ready. PAST MEDICAL HISTORY: Significant for: 1. Coronary artery bypass graft in 2015. 2. Hypertension. 3. Hyperlipidemia. ALLERGIES: She has no known drug allergies. FAMILY HISTORY: Reviewed, positive for coronary artery disease. SOCIAL HISTORY: No tobacco, alcohol or recreational drug use. Her daughter, Larry Fabian [phone] is her healthcare proxy. REVIEW OF SYSTEMS: A 14-point review of systems was completed with the patient. All pertinent positives and negatives are in the history of present illness; otherwise, it is negative. PHYSICAL EXAMINATION GENERAL: Pleasant woman lying in bed, in no acute distress. VITAL SIGNS: Temperature 97.5 degrees, heart rate is 68 beats per minute, respiratory rate is 14 breaths per minute, pulse ox 95%, blood pressure 108/60. HEENT: Normocephalic and atraumatic. Pupils equal, round and reactive to light. Moist mucous membranes. NECK: Supple with no JVD, bruits, palpable thyroid or lymphadenopathy. CHEST: Clear to auscultation and percussion bilaterally. CARDIOVASCULAR: S1, S2 appreciated. Regular rate and rhythm. No murmurs, gallops or rubs. ABDOMEN: Positive bowel sounds in all 4 quadrants. Soft, nontender, nondistended. No hepatosplenomegaly. EXTREMITIES: No cyanosis, clubbing or edema. +2 peripheral pulses bilaterally. NEUROLOGICAL: Alert and oriented x3. She moves all extremities. SKIN: No rashes and only evidence of hematoma on her left brachial area where she had a cardiac cath done. DIAGNOSTIC STUDIES/LAB DATA: White count is 8.4, hemoglobin 11.1, hematocrit 34, platelets are 254. Sodium is 137, potassium 4.9, chloride is 102, CO2 of 27, BUN 20, creatinine 1.27, glucose is 103. Troponin is 1.71, which is elevated, but down from what it was when she was here last week. Urinalysis is positive +3 wbc's, +2 rbc's, +3 bacteria, +3 leukocyte esterase. Her chest x-ray was interpreted by Radiology as postoperative changes, no active disease. EKG shows normal sinus rhythm at 70 beats per minute, left axis deviation, left anterior hemiblock, slipped Ts in V3 through V6 and I and aVL, which is unchanged from her prior EKG. ASSESSMENT AND PLAN: 1. Chest pain. It does sound cardiac, but there is little we can do at this point. We will cycle her troponins and if they just continue to trend downwards , she will likely be discharged home as early as tomorrow. If they do bump or she has more chest pain, we have been advised from the nurse emergency on-call at [place] to give them a call for assistance in her management. 2. Hypertension. Adequate control. Continue current regimen. 3. Hypothyroidism. Stable. Continue Synthroid. 4. Fluids, electrolytes, and nutrition. Heart healthy diet 5. Deep vein thrombosis prophylaxis. Heparin subcu. 6. The patient is a full code. TIME SPENT: Over 75 minutes were spent on this H and P, and more than 40 minutes of which was spent in direct [id number] contact with the patient in evaluation, physical exam, and counseling, and coordination of care. CC: Dr. Brody Caraballo * [id number]/[facility] #: [id number] MTDD
[2016-09-27] MEDS ORDERED: Nitroglycerin 0.3 MG/HR PATCH* (7.5 MG) TRANSDERM SCH (14:00)
[2016-09-27] MEDS ORDERED: Nitroglycerin 0.2 MG/HR PATCH* (5 MG) TRANSDERM SCH (14:00)
[2016-09-27] MEDS ORDERED: Nitroglycerin 0.1 mg/Hr PATCH* (2.5 MG) TRANSDERM SCH (14:00)
[2016-09-27] MEDS ORDERED: Heparin VIAL(*) 5000 UNITS/ML VIAL (FIVE THOUSAND) SUBCUT SCH (14:00)
--- NOTE | 2016-09-27 16:37 | PN ---
Hospitalist Progress Note HOSPITALIST ADDENDUM Patient evaluated at bedside multiple times today. Her presentation is concerning - she describes chest heaviness associated with diaphoresis, her daughter describes cyanosis and a thready pulse. I'm concerned with ischemia and arrhythmias. Although she is asymptomatic now, with no significant arrhythmias and troponins trending down, after reviewing her records and discussing her case with Cardiology (Dr. Cardoza), I believe the most prudent course of action is to transfer to [facility] to be re-evaluated by Dr. Luciano. She has complex CAD with very difficult access (unsucessful through left wrist and both femorals. Last intervention was through her left braquial) and her cath at [facility] lasted two and a half hour trying to cross the LAD lesion in to the diagonal branch. Dr. Luciano was able to stent her CASTAÑEDA, but felt if she continued to be symptomatic, he would try to open the chronically occluded LAD. Our Interventionalist feels he cannot intervene on her lesions here and I believe she would be safer at [facility] if an acute event were to occur, as Dr. Luciano was planning to intervene through a different approach (subclavian) in the future. Patient and daughter updated and agreeable with plan.
[2016-09-27 17:03] VITALS: BP 103/56
--- NOTE | 2016-09-27 18:33 | CONS ---
CONSULTATION REPORT: DATE OF CONSULT: 09/27/16 REASON FOR CONSULT: Atherosclerotic heart disease and chest pain. CHIEF COMPLAINT: I thought I was having heart attack. HISTORY OF PRESENT ILLNESS: Ms. Mendosa is a very nice 76-year-old woman who is a patient of Dr. Hassan. I first met her on the of 2015 for crescendo angina that she developed after having held her medications for 2 years. The patient has a history of bypass grafting at 2007 at [place], in addition to history of stents. The patient underwent cardiac catheterization in our center 09/13/16 and was found to have left main stent with no restenosis. Moderate sized LAD with a stent in that LAD diagonal junction and the distal LAD fills in the [place]. The circumflex is moderate in size nondominant with no significant stenosis. The right coronary artery was dominant, moderate in size, no significant stenosis. The [place] to the LAD is moderate in size and patent. There were suggestion from the [place] images of high grade in-stent stenosis of the proximal LAD sent extending into the diagonal. The patient was unable to be revascularized in our institution and the patient was underwent an repeat cath and stenting with Dr. James in [place], [place], September 25. Record from [place] revealed that this was a complex extensive procedure lasting 2-1/2 hours with a stent placed in the [place]. They were unable to cross the LAD itself into the diagonal. Dr. Luciano dictated that the next step will be to try to open the chronically occluded LAD and per verbal reports from her daughter, this apparently be tried via subclavian approach. The patient went home on the and shortly after going home, the left brachium started to bleed and become swollen and tense, which worried her. She and her daughter were planning to come to the emergency room to be evaluated when she developed chest pain and she said she thought she was going to have a heart attack. I did not talk to the daughter personally, but according to the hospitalist and reports from the daughter, the patient turned jimenez and was very short of breath, very diaphoretic, clammy, had to sit down, her daughter got a very low pulse. She was brought here. The patient herself estimates that she had pain and symptoms for an hour. PAST MEDICAL HISTORY: The patient has a past medical history of atherosclerotic heart disease as described above with bypass surgery in 2007 and her most stenting 09/25/16. History of hypertension, dyslipidemia, hypothyroid disease. MEDICATIONS: At discharge include: 1. Amlodipine 5 mg a day. 2. Aspirin 81 mg a day. 3. Atorvastatin 80 mg a day. 4. Brilinta 90 mg b.i.d. 5. Lotrisone cream. 6. Levothyroxine 25 mcg a day. 7. Lisinopril 2.5 mg a day. 8. Metoprolol 50 mg b.i.d. 9. Nitroglycerin p.r.n. 10. Tramadol 50 mg q.h.s. ALLERGIES: She has no known drug allergies. FAMILY HISTORY: Positive for early atherosclerotic heart disease. Her father had early coronary disease with myocardial infarction. Her brother had bypass surgery before the age of 51. Mother had congestive heart failure. SOCIAL HISTORY: Nonsmoker, nondrinker. 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 She is the main support for a son with disability, a daughter with cerebral palsy, and with Alzheimer. She has another daughter who is a critical care nurse, but she lives out of town. REVIEW OF SYSTEMS: As per history of present illness, the patient states she was taking all her medication, did not miss any medications. They had converted to the new prescription. PHYSICAL EXAM: On exam, the patient is an older woman, seated, eating, appears comfortable now. She is overweight. She is 5 feet, weight 158 pounds. Vitals: Blood pressure 110/46, pulse is 62, sats 98% on room air, temperature 98.0. Skin: Warm and dry. No cyanosis. Left brachium shows significant ecchymosis, but no evidence of fullness and her radial pulse in the left is strong. Groin not examined. HEENT: Pupils equal and round. Mucous membranes moist. Neck without appreciable increased JVP. Breast sounds were clear with good effort. No wheezes, rales or rhonchi. Coronary: S1, S2. Regular without murmurs or rubs. Abdomen: Soft and nontender. No hepatosplenomegaly. Lower extremities were warm and nonedematous. DIAGNOSTIC STUDIES/LAB DATA: Labs: White count 8.4, hemoglobin 11.1, hematocrit 34, platelets 254. INR 0.91. PTT of 155. Sodium 137, potassium 3.9 , chloride 102, bicarb 27, BUN 20, creatinine 1.27 (increased from a baseline of 0.82), glucose 103, ALT of 11, troponin #1 of 1.17, #2 1.67, #3 1.45, BNP of 329, TSH of 4.54. Urinalysis, positive nitrites positive, esterase 3+, 3+ bacteria, cloudy, pH of 1.19. EKG shows normal sinus rhythm with inverted T- waves across precordial lead, unchanged from 09/16/16. IMPRESSION: In summary, Ms. Mendosa is a 76-year-old woman with extensive atherosclerotic heart disease as above. She presented 09/10/16 with crescendo angina. Had the complex disease with lesion in the proximal LAD extending into the diagonal, which was not able to be opened up by I believe, 3 interventionalists. She presented 24 hours after her cath with severe chest pain , nausea, diaphoresis and sensation of impending doom and that she was having another heart attack, although her troponins have not rebumped. At [facility] in addition to her outpatient medication, nitroglycerin patch was added on the thought that vasospasm may be the etiology of her symptoms. computer terminal operator has a question of whether or not the patient needs to undergo redo revascularization with another approach as the Dr. Luciano had discussed with her. I was unable to reach Dr. Luciano today and talking with our local interventionalist with our free standing laboratory technologist, they will not be able to retry intervention here. After discussion, I spoke with Dr. Shore via [facility], who kindly accepted the patient in transfer. CC: Dr. Sandoval; Dr. Levi Shore, [facility].* [id number]/CPS #: [id number] [facility]
[2016-09-27] MEDS ORDERED: Nitro Patch/OINT Remove SCH (21:00)
[2016-09-29] MEDS ORDERED: Nitroglycerin 0.3 MG/HR PATCH* (7.5 MG) TRANSDERM SCH (09:00)
== END 2016-09-27 19:00 | disposition short-term general hospital (02) | DRG 303 ==
LOC: ED 18:24 → MEDTELE 23:39 → OBSVTOIN 09-27 17:35
PROVIDERS: ADMIT Internal Medicine; ATTEND Internal Medicine
DX: I25.810 Atherosclerosis of coronary artery bypass graft(s) without angina pectoris (principal); I11.9 Hypertensive heart disease without heart failure; E78.5 Hyperlipidemia, unspecified; E03.9 Hypothyroidism, unspecified; Z95.1 Presence of aortocoronary bypass graft; Z95.5 Presence of coronary angioplasty implant and graft; Z82.49 Family history of ischemic heart disease and other diseases of the circulatory system
CPT/HCPCS: 36415; 71010; 80053; 81003; 81015; 82553; 83605; 83735; 83874; 83880; 84443; 84484; 85025; 87077; 87086; 87186; 93005; A9270-GY; J1644

== ENCOUNTER 2018-01-14 06:14 | Inpatient (IN) | payer MEDICARE ==
[2018-01-14 07:52] LABS: ABS Basophils 0 10^3/ul (0-0.2); ABS Eosinophils 0.1 10^3/ul (0-0.6); ABS Monocytes 0.3 10^3/ul (0-0.8); ABS Neutrophils 7.2 10^3/ul (1.5-7.7); ABS Nucleated RBC 0 10^3/ul; Eosinophil % 1.2 % (0-6); Hematocrit 32 % (35-47); Hemoglobin 10.7 g/dl (12.0-16.0); Lymphocyte % 11.5 % (25-47); Mean Corpuscular HGB Conc 33 g/dl (31-36); Mean Corpuscular Hemoglobin 29 pg (27-31); Mean Corpuscular Volume 88 fL (80-97); Mean Platelet Volume 8.7 um3 (7.4-10.4); Nucleated Red Blood Cells % 0.1; Platelet Count 482 10^3/ul (150-450); Red Blood Count 3.67 10^6/ul (4.0-5.4); Red Cell Distribution Width 16 % (10.5-15); White Blood Count 8.6 10^3/ul (3.5-10.8)
--- NOTE | 2018-01-14 08:03 | RAD ---
INDICATION: Chest pain COMPARISON: September 26, 2016 TECHNIQUE: An AP portable view obtained at 0741 hours is submitted. FINDINGS: Bones/Soft Tissues: There are no acute bony findings. There is sternotomy/CABG Cardiomediastinal: The cardiomediastinal silhouette is normal. There is interstitial edema. There is early alveolar change right lung base which may represent alveolar edema. Lungs: Alveolar changes right lung base may represent alveolar edema but developing infectious infiltrate is not excluded radiographically. Pleura: There are no pleural effusions. Other: None IMPRESSION: INTERSTITIAL CONGESTION. SUGGEST FOLLOW-UP.
[2018-01-14 08:12] LABS: EGFR Non-African American 62.8 (>60)
[2018-01-14 08:36] LABS: INR 1.03 (0.77-1.02)
[2018-01-14] MEDS ORDERED: Iohexol 350* (CONTRAST) 500 ML MDV IV ONE (09:38)
[2018-01-14] MEDS ORDERED: Heparin DRIP 25,000 UNITS(*) 25,000 UNITS/500 ML BAG IV SCH (11:30)
[2018-01-14] MEDS ORDERED: Ondansetron INJ* 2 MG/ML VIAL IV ONE (12:08)
[2018-01-14] MEDS ORDERED: Ondansetron ODT TAB* 4 MG ONE (12:21)
[2018-01-14] MEDS ORDERED: Ondansetron ODT TAB* 4 MG PO ONE (12:22)
--- NOTE | 2018-01-14 12:29 | RAD ---
INDICATION: CHF. Chest pain. Evaluate for pulmonary embolus. COMPARISON: Chest x-ray same date; CT chest/abdomen/pelvis December 30, 2015 TECHNIQUE: Axial source images were obtained from the thoracic inlet to the hemidiaphragms following administration of [address] angiographic technique was utilized. Coronal and sagittal reconstructed images were acquired. CHEST FINDINGS: Neck/thyroid: The visualized neck to include the thyroid appear normal. Chest wall: There are no acute abnormalities of the bony thorax or chest wall. There is sternotomy There is no supraclavicular or infraclavicular adenopathy.There are multiple axillary lymph nodes one of which is mildly prominent measuring 12 mm in short axis. Essentially similar appearing lymph nodes nodes have been present previously and the lymph nodes appear to contain fatty david. Suggest clinical evaluation and management Lungs : There is interstitial prominence with alveolar infiltrative changes in lung bases right greater than left. This suggests interstitial and alveolar edema as also evident on the chest x-ray Cardiomediastinal structures: There is no CT evidence of acute pulmonary embolic disease. The heart is mildly enlarged. There is no pericardial effusion. There is no evidence of aortic aneurysm or dissection. There is mild aortic ectasia, unchanged. There are aortic intimal and coronary artery calcifications. There is coronary arterial stenting There is no mediastinal or hilar adenopathy. The esophagus appears normal. Pleura : There are no pleural-based masses or effusions. Other: Limited views the upper abdomen show multiple hepatic cysts.. IMPRESSION: CARDIOMEGALY WITH INTERSTITIAL AND ALVEOLAR EDEMA. THE FINDINGS ARE COMPATIBLE WITH VASCULAR CONGESTION. NO CT EVIDENCE OF ACUTE PULMONARY EMBOLIC DISEASE.
[2018-01-14] MEDS ORDERED: Heparin VIAL(*) 5000 UNITS/ML VIAL (FIVE THOUSAND) ONE (12:36)
[2018-01-14] MEDS ORDERED: Furosemide IV* 10 MG/ML 2 ML VIAL (20 MG) IV SLOW PU ONE (12:36)
[2018-01-14] MEDS ORDERED: nitroGLYCERIN DRIP* 25,000 MCG/250 ML BTL IV ONE (12:53)
[2018-01-14] MEDS ORDERED: fentaNYL* 50 MCG/ML 2 ML VIAL (100 MCG VIAL) IV SLOW PU PRN (13:29)
[2018-01-14] MEDS ORDERED: Ondansetron INJ* 2 MG/ML VIAL IV PRN (13:37)
[2018-01-14] MEDS ORDERED: nitroGLYCERIN DRIP* 25,000 MCG/250 ML BTL IV SCH (14:00)
[2018-01-14] MEDS ORDERED: Metoprolol Succinate XL TAB* 50 MG PO SCH (14:00)
--- NOTE | 2018-01-14 14:58 | ED ---
Saúl Kaur Stephanie, scribed for Sanjeev Oscar MD on 01/14/18 at 0821 . HPI Chest Pain - HPI Summary HPI Summary: The pt is a 78 y/o F presenting to the ED with c/o CP that began at 21:00 on 01/13. The pt took 3 nitro sublingual with relief of pain. The CP is diffuse across the chest and radiated down the arms bilaterally. Symptoms include SOB and R LE edema. Aggravating factors include stress. The pt states her CP feels similar to when she has had previous PR. The pt states her R LE has been swollen for the past month and recently has decreased in swelling over the past 2 days. The pt states she has recent stressors over the past few days such as figuring out where to institutionalize her daughter with MS and with Alzheimers. 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 The pt states when she is under stress her CP returns. - History of Current Complaint Chief Complaint: EDChestPainROMI Time Seen by Provider: 01/14/18 07:23 Hx Obtained From: Patient Onset/Duration: Started Hours Ago - 12, Resolved Time of Onset: 21:00 Timing: Intermittent Current Severity: Moderate Pain Intensity: 8 Pain Scale Used: 0-10 Numeric Chest Pain Location: Diffuse Chest Pain Radiates: Yes Chest Pain Radiates To:: Arm - bilaterally Character: Tightness Aggravating Factor(s): Other: - stress Alleviating Factor(s): NTG 123 Associated Signs and Symptoms: Positive: Chest Pain, Shortness of Breath - Additional Pertinent History Primary Care Physician: [id number] - Allergy/Home Medications Allergies/Adverse Reactions: Allergies Allergy/AdvReac Type Severity Reaction Status Date / Time MS Cat Hair Extract Allergy Intermediate Congestion Verified 09/27/16 13:30 [Cat Hair Extract] Cats Allergy Intermediate Congestion Uncoded 06/13/15 17:56 Home Medications: Home Medications Clotrimazole/Betamethasone* [Lotrisone Cream*] 1 applic TOPICAL DAILY PRN [History Confirmed 01/14/18] Isosorbide Mononitrate ER TAB* [Imdur ER TAB*] 60 mg PO DAILY 01/14/18 [History Confirmed 01/14/18] Levothyroxine TAB* [Synthroid TAB*] 25 mcg PO DAILY 01/14/18 [History Confirmed 01/14/18] PMH/Surg Hx/FS Hx/Imm Hx Endocrine/Hematology History: Reports: Hx Thyroid Disease Denies: Hx Diabetes Cardiovascular History: Reports: Hx Hypercholesterolemia, Hx Hypertension, Hx Myocardial Infarction - 2015, 2 stents placed by [facility], Other Cardiovascular Problems/Disorders - Stents x5 Denies: Hx Congestive Heart Failure, Hx Pacemaker/ICD Respiratory History: Denies: Hx Asthma, Hx Chronic Obstructive Pulmonary Disease (COPD), Other Respiratory Problems/Disorders GI History: Reports: Hx Gall Bladder Disease, Other GI Disorders - 'sensitive stomach', constipation Denies: Hx Gastrointestinal Bleed, Hx Ulcer Musculoskeletal History: Reports: Hx Back Problems - ruptured disk, cortizone injections, Other Musculoskeletal History - Thinning nerves in L Hip Sensory History: Reports: Hx Contacts or Glasses Opthamlomology History: Reports: Hx Contacts or Glasses Neurological History: Reports: Other Neuro Impairments/Disorders - Numbness to RT thumb - Surgical History Surgery Procedure, Year, and Place: Triple Bypass 2007, Stents placed 2008 and 2014. Hysterectomy Infectious Disease History: No Infectious Disease History: Denies: Hx Clostridium Difficile, Hx Hepatitis, Hx Human Immunodeficiency Virus (HIV), History Other Infectious Disease, Traveled Outside the [place] in Last 30 Days - Family History Known Family History: Positive: Cardiac Disease - bypass, CHF, father - PR - Social History Occupation: Retired Lives: With Family Alcohol Use: None Hx Substance Use: No Substance Use Type: Reports: None Hx Tobacco Use: No Smoking Status (MU): Never Smoked Tobacco Have You Smoked in the Last Year: No Review of Systems Negative: Fever Positive: Chest Pain Positive: Shortness Of Breath Negative: Slurred Speech All Other Systems Reviewed And Are Negative: Yes Physical Exam - Summary Physical Exam Summary: Appearance: The patient is well-nourished in no acute distress and in no acute pain. Skin: The skin is warm and dry and skin color reflects adequate perfusion. HEENT: The head is normocephalic and atraumatic. The pupils are equal and reactive. The conjunctivae are clear and without drainage. Nares are patent and without drainage. Mouth reveals moist mucous membranes and the throat is without erythema and exudate. The external ears are intact. The ear canals are patent and without drainage. The tympanic membranes are intact. Neck: the neck is supple with full range of motion and non-tender. There are no carotid bruits. There is no neck vein distension. Respiratory: Chest is non-tender. Lungs are clear to auscultation and breath sounds are symmetrical and equal. Cardiovascular: Heart is regular rate and rhythm. There is no murmur or rub auscultated. Pulses are symmetrical and equal. There is peripheral pitting edema in R ankle and slightly in L ankle. Abdomen: The abdomen is soft and non-tender. There are normal bowel sounds heard in all four quadrants and there is no organomegaly palpated. Musculoskeletal: There is no back tenderness noted. Extremities are non-tender with full range of motion. There is good capillary refill. There is no calf tenderness elicited. There is pitting edema in R ankle and slightly in L ankle. Neurological: Patient is alert and oriented to person, place and time. The patient has symmetrical motor strength in all four extremities. Cranial nerves are grossly intact. Deep tendon reflexes are symmetrical and equal in all four extremities. Psychiatric: The patient has an appropriate affect and does not exhibit any anxiety or depression. Triage Information Reviewed: Yes Vital Signs On Initial Exam: Initial Vitals Temp Pulse Resp BP Pulse Ox 98.6 F 77 24 140/78 96 01/14/18 06:45 01/14/18 06:45 01/14/18 06:45 01/14/18 06:45 01/14/18 06:45 Vital Signs Reviewed: Yes Diagnostics - Vital Signs Vital Signs Temp Pulse Resp BP Pulse Ox 01/14/18 06:45 98.6 F 77 24 140/78 96 - Laboratory Lab Results: Lab Results 01/14/18 01/14/18 01/14/18 Range/Units 07:37 07:37 07:37 WBC 8.6 (3.5-10.8) 10^3/ul RBC 3.67 L (4.0-5.4) 10^6/ul Hgb 10.7 L (12.0-16.0) g/dl Hct 32 L (35-47) % MCV 88 (80-97) fL MCH 29 (27-31) pg MCHC 33 (31-36) g/dl RDW 16 H (10.5-15) % Plt Count 482 H (150-450) 10^3/ul MPV 8.7 (7.4-10.4) um3 Neut % (Auto) 83.4 H (38-83) % Lymph % (Auto) 11.5 L (25-47) % [place] % (Auto) 3.5 (0-7) % Eos % (Auto) 1.2 (0-6) % Baso % (Auto) 0.4 (0-2) % Absolute Neuts (auto) 7.2 (1.5-7.7) 10^3/ul Absolute Lymphs (auto) 1.0 (1.0-4.8) 10^3/ul Absolute Monos (auto) 0.3 (0-0.8) 10^3/ul Absolute Eos (auto) 0.1 (0-0.6) 10^3/ul Absolute Basos (auto) 0 (0-0.2) 10^3/ul Absolute Nucleated RBC 0 10^3/ul Nucleated RBC % 0.1 INR (Anticoag Therapy) 1.03 H (0.77-1.02) Sodium 137 L (139-145) mmol/L Potassium 3.7 (3.5-5.0) mmol/L Chloride 102 (101-111) mmol/L Carbon Dioxide 25 (22-32) mmol/L Anion Gap 10 (2-11) mmol/L BUN 25 H (6-24) mg/dL Creatinine 0.87 (0.51-0.95) mg/dL Est GFR ( Amer) 80.8 (>60) Est GFR (Non-Af Amer) 62.8 (>60) BUN/Creatinine Ratio 28.7 H (8-20) Glucose 134 H (70-100) mg/dL Lactic Acid (0.5-2.0) mmol/L Calcium 9.6 (8.6-10.3) mg/dL Total Bilirubin 0.40 (0.2-1.0) mg/dL AST 16 (13-39) U/L ALT 6 L (7-52) U/L Alkaline Phosphatase 96 (34-104) U/L Troponin I 0.39 H* (<0.04) ng/mL B-Natriuretic Peptide ( - 100) pg/mL Total Protein 8.2 (6.4-8.9) g/dL Albumin 4.0 (3.2-5.2) g/dL Globulin 4.2 H (2-4) g/dL Albumin/Globulin Ratio 1.0 (1-3) TSH 11.95 H (0.34-5.60) mcIU/mL 01/14/18 01/14/18 01/14/18 Range/Units 07:37 07:37 10:47 WBC (3.5-10.8) 10^3/ul RBC (4.0-5.4) 10^6/ul Hgb (12.0-16.0) g/dl Hct (35-47) % MCV (80-97) fL MCH (27-31) pg MCHC (31-36) g/dl RDW (10.5-15) % Plt Count (150-450) 10^3/ul MPV (7.4-10.4) um3 Neut % (Auto) (38-83) % Lymph % (Auto) (25-47) % [place] % (Auto) (0-7) % Eos % (Auto) (0-6) % Baso % (Auto) (0-2) % Absolute Neuts (auto) (1.5-7.7) 10^3/ul Absolute Lymphs (auto) (1.0-4.8) 10^3/ul Absolute Monos (auto) (0-0.8) 10^3/ul Absolute Eos (auto) (0-0.6) 10^3/ul Absolute Basos (auto) (0-0.2) 10^3/ul Absolute Nucleated RBC 10^3/ul Nucleated RBC % INR (Anticoag Therapy) (0.77-1.02) Sodium (139-145) mmol/L Potassium (3.5-5.0) mmol/L Chloride (101-111) mmol/L Carbon Dioxide (22-32) mmol/L Anion Gap (2-11) mmol/L BUN (6-24) mg/dL Creatinine (0.51-0.95) mg/dL Est GFR ( Amer) (>60) Est GFR (Non-Af Amer) (>60) BUN/Creatinine Ratio (8-20) Glucose (70-100) mg/dL Lactic Acid 1.6 (0.5-2.0) mmol/L Calcium (8.6-10.3) mg/dL Total Bilirubin (0.2-1.0) mg/dL AST (13-39) U/L ALT (7-52) U/L Alkaline Phosphatase (34-104) U/L Troponin I 2.18 H* (<0.04) ng/mL B-Natriuretic Peptide 110 H ( - 100) pg/mL Total Protein (6.4-8.9) g/dL Albumin (3.2-5.2) g/dL Globulin (2-4) g/dL Albumin/Globulin Ratio (1-3) TSH (0.34-5.60) mcIU/mL 01/14/18 Range/Units 11:49 WBC (3.5-10.8) 10^3/ul RBC (4.0-5.4) 10^6/ul Hgb (12.0-16.0) g/dl Hct (35-47) % MCV (80-97) fL MCH (27-31) pg MCHC (31-36) g/dl RDW (10.5-15) % Plt Count (150-450) 10^3/ul MPV (7.4-10.4) um3 Neut % (Auto) (38-83) % Lymph % (Auto) (25-47) % [place] % (Auto) (0-7) % Eos % (Auto) (0-6) % Baso % (Auto) (0-2) % Absolute Neuts (auto) (1.5-7.7) 10^3/ul Absolute Lymphs (auto) (1.0-4.8) 10^3/ul Absolute Monos (auto) (0-0.8) 10^3/ul Absolute Eos (auto) (0-0.6) 10^3/ul Absolute Basos (auto) (0-0.2) 10^3/ul Absolute Nucleated RBC 10^3/ul Nucleated RBC % INR (Anticoag Therapy) (0.77-1.02) Sodium (139-145) mmol/L Potassium (3.5-5.0) mmol/L Chloride (101-111) mmol/L Carbon Dioxide (22-32) mmol/L Anion Gap (2-11) mmol/L BUN (6-24) mg/dL Creatinine (0.51-0.95) mg/dL Est GFR ( Amer) (>60) Est GFR (Non-Af Amer) (>60) BUN/Creatinine Ratio (8-20) Glucose (70-100) mg/dL Lactic Acid (0.5-2.0) mmol/L Calcium (8.6-10.3) mg/dL Total Bilirubin (0.2-1.0) mg/dL AST (13-39) U/L ALT (7-52) U/L Alkaline Phosphatase (34-104) U/L Troponin I 2.96 H* (<0.04) ng/mL B-Natriuretic Peptide ( - 100) pg/mL Total Protein (6.4-8.9) g/dL Albumin (3.2-5.2) g/dL Globulin (2-4) g/dL Albumin/Globulin Ratio (1-3) TSH (0.34-5.60) mcIU/mL Result Diagrams: 01/14/18 07:37 01/14/18 07:37 Lab Statement: Any lab studies that have been ordered have been reviewed, and results considered in the medical decision making process. - Radiology CXR Xray Interpretation: Positive (See Comments) Radiology Interpretation Completed By: Radiologist - INTERSTITIAL CONGESTION. SUGGEST FOLLOW-UP. ED physician has reviewed this report. - CT CTA Chest/Thorax CT Interpretation: Positive (See Comments) CT Interpretation Completed By: Radiologist - CARDIOMEGALY WITH INTERSTITIAL AND ALVEOLAR EDEMA. THE FINDINGS ARE COMPATIBLE WITH VASCULAR CONGESTION. NO CT EVIDENCE OF ACUTE PULMONARY EMBOLIC DISEASE. ED physician has reviewed this report. - EKG 06:32 Cardiac Rate: NL EKG Rhythm: Sinus Rhythm - 76 BPM EKG Interpretation: L axis deviation. Possible left anterior vessicular block. 11:28 Cardiac Rate: NL EKG Rhythm: Sinus Rhythm - 78 BPM EKG Interpretation: Diffuse nonspecific T-wave flattening. Re-Evaluation - Re-Evaluation First Eval Re-Evaluation Time: 12:52 Change: Unchanged - ED physician discussed plan of admission with the pt and the pt agrees. Chest Pain Course/Dx - Course Course Of Treatment: MS. Mendosa has significant CAD and has been told that only medical treatment is available. She came in with CP similar to what she has frequently but more intense. She improved with 3 of her own NTG and 2 in the ambulance but still has some CP. Her right leg has been swollen for about a month and started to get better in the last couple days. She had a SPO2 in the 80's on arrival which inproved with O2. Her initial ECG showed no STEMI and I was concerned for a possible PE. Her creatinine was OK so a CTA was ordered. Her first trop was 0.39. The repeat was over 2 so heparin was started and Dr. Javier consulted. He recommended admission and medical management. - Diagnoses Provider Diagnoses: Non-STEMI (non-ST elevated myocardial infarction) - Provider Notifications Discussed Care Of Patient With: Joseph Petreson Time Discussed With Above Provider: 12:51 Instructed by Provider To: Admit As Inpatient - Critical Care Time Critical Care Time: 30-74 min Discharge - Sign-Out/Discharge Documenting (check all that apply): Discharge/Admit/Transfer - Admit - Discharge Plan Condition: Stable Disposition: [facility]MITTED TO [facility] - Billing Disposition and Condition Condition: STABLE [place] [place] The documentation as recorded by the Saúl valentin Stephanie accurately reflects the service I personally performed and the decisions made by me, Sanjeev Oscar MD.
[2018-01-14] MEDS ORDERED: Furosemide IV* 10 MG/ML 2 ML VIAL (20 MG) IV ONE (16:54)
[2018-01-14] MEDS ORDERED: Atorvastatin* 10 MG TAB PO SCH (17:00)
--- NOTE | 2018-01-14 17:05 | CONSULT ---
Subjective Date of Service: 01/14/18 Interval History: Admission Date: 01/14/2018 Consult date 01/14/2018 PMD: Dr. Caraballo Manager Child: Dr. Sandoval Service: Hospitalist CC: Chest pain and dyspnea Reason for consult: AMI and mild CHF HISTORY OF PRESENT ILLNESS: Ms. 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 Last attempt I have available was [facility] 09/25/2016 with a 2 and 1/2 hour attempt unsuccessful A CASTA[place]EDA stent was placed at that time for what appears to be an iatrogenic complication. She has not taken atorvastatin for a year because it makes he so she can't lift her legs. She is only taking BID medications ( brillinta and metoprolol) once a day because she says that her body cannot handle twice daily medications. She has been under a lot of stress. Her son has had a TBI in the past, one daughter has MS and is now in a custodial, has alzheimers. She presents now with prolonged chest discomfort at rest. She ruled in for ACS and has received IV heparin and nitroglycerine.. She also received IV lasix with good UOP. She is currently in the ICU. She denies any current chest discomfort. Her breathing has improved. PAST MEDICAL HISTORY/surgical [place] [facility] [place] and was found to have left main stent with no restenosis. Moderate sized LAD with a stent in that LAD diagonal junction and the distal LAD fills in the CASTAÑEDA. The circumflex is moderate in size nondominant with no significant stenosis. The right coronary artery was dominant, moderate in size, no significant stenosis. The CASTA[place]EDA to the LAD is moderate in size and patent. There were suggestion from the CASTA[place]EDA images of high grade in- stent stenosis of the proximal LAD sent extending into the diagonal. 09/25/2017 Dr. Luciano unable to cross the LAD itself into the diagonal. HTN dyslipidemia ALLERGIES: She has no known drug allergies. FAMILY HISTORY: Positive for early atherosclerotic heart disease. Her father had early coronary disease with myocardial infarction. Her brother had bypass surgery before the age of 51. Mother had congestive heart failure. SOCIAL HISTORY: Nonsmoker, nondrinker. 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 Aside above, another daughter is nurse but she lives out of town. Medications Active Medications: Amlodipine Besylate (Norvasc Tab*) 5 mg PO DAILY [facility] Aspirin (Aspirin 81 Mg Chew Tab*) 81 mg PO DAILY [facility] Fentanyl Citrate (Fentanyl*) 25 mcg IV SLOW PU Q1H PRN PRN Reason: PAIN - CHEST Furosemide (Lasix Iv*) 10 mg IV ONCE ONE Stop: 01/14/18 16:55 Heparin Sodium/Dextrose (Heparin Drip 25,000 Units(*)) 25,000 units in 500 mls @ 0 mls/hr IV PER RATE JORGE; Per Protocol PRN Reason: Protocol Nitroglycerin/Dextrose (Nitroglycerin Drip*) 25,000 mcg in 250 mls @ 6 mls/hr IV .PER PARAMETERS JORGE; 10 MCG/MIN PRN Reason: Protocol Last Admin: 01/14/18 14:50 Dose: 6 mls/hr Levothyroxine Sodium (Synthroid Tab*) 25 mcg PO 0600 [facility] Metoprolol Succinate (Toprol Xl Tab*) 50 mg PO DAILY [facility] Ondansetron HCl (Zofran Inj*) 4 mg IV Q6H PRN PRN Reason: NAUSEA Rosuvastatin Calcium (Crestor (Nf)) 5 mg PO Q24HR JORGE PRN Reason: Protocol Ticagrelor (Brilinta*) 90 mg PO BID [facility] Home Medications: Aspirin 81 mg CHEW TAB* 81 mg PO DAILY #0 tab.chew 09/13/15 [Rx Confirmed ] Atorvastatin* [Lipitor 80 MG*] 80 mg PO DAILY 09/13/16 [History Confirmed ] Not taking Lisinopril TAB* [Prinivil TAB 5 MG*] 2.5 mg PO BID #60 tab 09/17/16 [Rx Confirmed 01/14/18] Metoprolol Tartrate TAB* [Lopressor TAB*] 50 mg PO BID #60 tab 09/17/16 [Rx Confirmed 01/14/18] Only taking once a day Nitroglycerin TAB 0.4 MG* 0.4 mg SL Q5M PRN #25 tab 09/17/16 [Rx Confirmed 01/14] Ticagrelor* [Brilinta 90 MG*] 90 mg PO BID #60 tab 09/17/16 [Rx Confirmed ] Only taking once a day amLODIPine TAB* [Norvasc 5 mg TAB*] 5 mg PO DAILY 09/26/16 [History Confirmed ] Clotrimazole/Betamethasone* [Lotrisone Cream*] 1 applic TOPICAL DAILY PRN [History Confirmed 01/14/18] Isosorbide Mononitrate ER TAB* [Imdur ER TAB*] 60 mg PO DAILY 01/14/18 [History Confirmed 01/14/18] Levothyroxine TAB* [Synthroid TAB*] 25 mcg PO DAILY 01/14/18 [History Confirmed 01/14/18] Review of Systems - Review of Systems Constitutional Symptoms: Negative: Weight Gain, Weight Loss, Fatigue Dermatology: Negative: Rash, Skin Lesions HEENT: Negative: Change in Hearing, Vertigo Eyes: Negative: Change in Vision, Double Vision Thyroid: Negative: Cold Intolerance, Heat Intolerance, Sweatiness, Tremor, Frequent Defecation, Constipation, Palpitations, Primary Hypothyroidism, Primary Hyperthyroidism, Change in Skin/Hair, Change in Menstration Pulmonary: Positive: Shortness of Breath, Exercise Intolerance Negative: Sputum, Hemoptysis, COPD, Asthma, Home Oxygen Cardiology: Positive: Chest Pain, Shortness of Breath, Swelling of Ankles, Edema Negative: Palpitations, Peripheral Vascular Dis, Faintness, Syncope, Claudication, Paroxysmal Nocturnal Dyspnea, Orthopnea Gastroenterology: Negative: Nausea, Vomiting, Anorexia, Indigestion, Difficulty Swallowing, Heartburn, Constipation, Diarrhea, Blood in Stools, Change in Bowel Habits, Haematemesis Genital - Urinary: Negative: Dysuria, Hematuria, Polyuria Musculoskeletal: Negative: Joint Pain, Joint Stiffness, Low Back Pain Endocrinology: Negative: Thyroid Problems, Polydipsia, Polyuria Hematologic/Lymphatic: Positive: Use of Antiplatelet Drugs Negative: Hx Leukemia, Hx Lymphoma Neurology: Negative: Diplopia, Dizziness, Change in Balancing, Change in Coordination, Change in Memory, Hx of Stroke\TIA, Hx Seizures Psychiatry: Negative: Depressed Mood, Adhedonia, Sexual Dysfunction, Unusual Anxiety, Suicidal Ideation Allergic/Immunologic: Negative: Hx HIV, Immunocompromise Review of Systems Statement: All other review of systems negative, unless stated above. Objective Vital Signs: Temp Pulse Resp BP Pulse Ox 98.9 F 80 22 132/71 81 01/14/18 14:43 01/14/18 16:00 01/14/18 16:00 01/14/18 15:45 01/14/18 16:00 Oxygen Devices in Use Now: Nasal Cannula Appearance: very pleasant, nad Ears/Nose/Mouth/Throat: Clear Oropharnyx Neck: Trachea Midline, - - uncertain jvp Respiratory: - - mild increased work of breathing, no tachypnea, b/l rales Cardiovascular: RRR, - - no significant murmr Abdominal: NL Sounds; No Tenderness; No Distention Extremities: No Clubbing, Cyanosis, - - 1+ edema Skin: No Rash or Ulcers Neurological: Alert and Oriented x 3 Laboratory Results: 01/14/18 07:37 01/14/18 16:23 INR (Anticoag Therapy) 1.03 (0.77-1.02) H 01/14/18 07:37 Total Bilirubin 0.40 mg/dL (0.2-1.0) 01/14/18 07:37 AST 16 U/L (13-39) 01/14/18 07:37 ALT 6 U/L (7-52) L 01/14/18 07:37 Alkaline Phosphatase 96 U/L (34-104) 01/14/18 07:37 B-Natriuretic Peptide 110 pg/mL (-100) H 01/14/18 07:37 Total Protein 8.2 g/dL (6.4-8.9) 01/14/18 07:37 Albumin 4.0 g/dL (3.2-5.2) 01/14/18 07:37 Globulin 4.2 g/dL (2-4) H 01/14/18 07:37 Albumin/Globulin Ratio 1.0 (1-3) 01/14/18 07:37 TSH 11.95 mcIU/mL (0.34-5.60) H 01/14/18 07:37 01/14/18 01/14/18 01/14/18 07:37 10:47 11:49 Troponin I 0.39 H* 2.18 H* 2.96 H* 01/14/18 16:23 Troponin I 3.61 H* Diagnostic Imaging: CTA 01/14/2018: Intersitial and alveolar edema EKG Data: ekg admission: NSR 80 bpm, subtle 0.[address] elevation 1 and aVL with reciprocal 0.[address] depression inferior leads. Prior EKG from 09/26/2016 with deep symmetric TWI inverios precordial 1 and aVL suggestive of anterior wall ischemia. No EKG baseline since then for comparison to current Assessment/Plan I reviewed her prior angiogram films with Dr. James. Her EKG is suggestive of diagonal injury. An echocardiogram is pending. It is felt that medical management may be optimal in this patient but this will be decided pending her clinical course. - Repeat EKG and order daily - Trend cTnI to peak - Ok to use narcotics PRN for pain - Will try to make as many medications once daily as possible to help with adherence, will discuss with her again whether she would be willing to take BID brillinta - Will try 5 mg of crestor, would check a lipid panel - Likely will need a low dose of oral intermittent loop diuretic at discharge - Synthroid dose needs adjusted - Continue other medications as ordered, would use heparin gtt x 48 hours - Will follow Thank you for allowing me to participate in the cardiovascular care of this patient. Please do not hesitate to contact me with questions or concerns.
--- NOTE | 2018-01-14 18:45 | ECHO ---
Patient: COTY ISBELL [facility] Rec#: [id number] : 1940 Date: 01/14/2018 Age: 78y Height: 152.4 cm / 60.0 in Weight: 63.5 kg / 140.0 lbs Sex: F BSA: 1.6 Room#: [facility] Admit Date#: 01/14/2018 Type: Inpatient Referring: Isha Quinones NP Reading: Juanito Javier DO Custom Grinder: Isha Diaz RDCS CC: Brody Caraballo MD Transthoracic Echocardiogram Indication: Chest Pain, NSTEMI BP: 133/80 HR: 72 Rhythm: NSR Findings History: S/P CABG 2014, s/p PCI, HTN, and HLD. Technical Comments: The study quality is fair. Completed at 1700. Left Ventricle: The left ventricular chamber size is normal. Mild concentric left ventricular hypertrophy is observed. There is a prominent septal knuckle. There are multiple regional wall motion abnormalities. There is severely decreased left ventricular systolic function.with an LVEF of 30% Abnormal left ventricular diastolic function is observed. The mid anteroseptal, mid anterior, and mid inferolateral wall segments are hypokinetic (score 2). The mid anterolateral, apical septal, apical anterior, apical lateral, and apical inferior wall segments are akinetic (score 3). Overall wallmotion score index is 1.81 Left Atrium: The left atrium is mildly dilated. Right Ventricle: The right ventricular cavity size is normal. The right ventricular global systolic function is normal. Right Atrium: The right atrial cavity size is normal. Aortic Valve: The aortic valve is trileaflet. The aortic valve leaflets are mildly thickened. There is mild to moderate aortic regurgitation. , more consistent with moderate There is no evidence of aortic stenosis. Mitral Valve: The mitral valve leaflets are mildly thickened. There is mild to moderate mitral regurgitation. There is no evidence of mitral stenosis. Tricuspid Valve: The tricuspid valve leaflets are normal. There is mild to moderate tricuspid regurgitation. There is evidence of borderline pulmonary hypertension. There is no tricuspid stenosis. Pulmonic Valve: The pulmonic valve appears normal. There is a trace pulmonic regurgitation. There is no pulmonic stenosis. Pericardium: There is no significant pericardial effusion. Aorta: There is mild dilatation of the ascending aorta. There is no dilatation of the aortic arch. The aortic root is normal in size. Pulmonary Artery: The main pulmonary artery is not well visualized. Venous: The inferior vena cava appears normal in size. There is an approximate 50% respiratory change in the inferior vena cava dimension. Conclusions The left ventricular chamber size is normal. Mild concentric left ventricular hypertrophy is observed. There is a prominent septal knuckle. There is severely decreased left ventricular systolic function.with an LVEF of 30% The left atrium is mildly dilated. The right ventricular cavity size is normal. The right ventricular global systolic function is normal. There is mild to moderate aortic regurgitation, more consistent with moderate There is mild to moderate mitral regurgitation. There is mild to moderate tricuspid regurgitation. There is evidence of borderline pulmonary hypertension. Compared to prior study from 09/2016, there is now extensive mid LAD territory wall motion abnormality and a severely reduced LVEF. Measurements Name Value Normal Range RVIDd (AP) 2D 3.1 cm (0.9 - 2.6) RVDdMajor (2D) 4 cm (2.2 - 4.4) RAd ISD 4CH 4.1 cm (3.4 - 4.9) RA (A4C)W 3.7 cm (2.9 - 4.6) IVSd (2D) 1.3 cm (0.6 - 1) LVPWd (2D) 1.3 cm (0.6 - 1) LVIDd (2D) 4.3 cm (3.6 - 5.4) LVIDs (2D) 2.5 cm - LV FS (2D) 41 % (25 - 45) Aortic Annulus 1.9 cm (1.4 - 2.6) Ao root diameter (2D) 3.1 cm (2.1 - 3.5) Ascending Ao 3.5 cm (2.1 - 3.4) Aortic arch 2.7 cm (1.8 - 3.4) LA dimension (AP) 2D 4.1 cm (2.3 - 3.8) LAd ISD 4CH 4.8 cm (2.9 - 5.3) LA ISD 4CH W 3.8 cm (2.5 - 4.5) Name Value Normal Range LA ESV SP 4CH (A/L) 35 ml - LA ESV SP 2CH (A/L) 61 ml - LA ESV BP (A/L) 48 ml - LA ESV BP (A/L) index 30 ml/m2 - LA ESV SP 4CH (MOD) 35 ml - LA ESV SP 2CH (MOD) 56 ml - Name Value Normal Range MV E-wave Vmax 0.69 m/sec - MV deceleration time 184.9 msec - MV A-wave Vmax 0.86 m/sec - MV E:A ratio 0.8 ratio - LV septal e' Vmax 0.04 m/sec - LV lateral e' Vmax 0.04 m/sec - LV E:e' septal ratio 17.25 ratio - LV E:e' lateral ratio 17.25 ratio - Name Value Normal Range AV Vmax 1.36 m/sec - AV VTI 22.34 cm - AV peak gradient 7.47 mmHg - AV mean gradient 2.35 mmHg - LVOT Vmax 0.69 m/sec - LVOT VTI 14.39 cm - LVOT peak gradient 1.94 mmHg - LVOT mean gradient 0.95 mmHg - AR PHT 429.32 msec - AR peak gradient 42.85 mmHg - PIPER Vmax 0.57 m/sec - Name Value Normal Range MR Vmax 4.66 m/sec - MR VTI 177.04 cm - Name Value Normal Range TR Vmax 2.6 m/sec - TR peak gradient 27 mmHg - RAP 8 mmHg - RVSP 35 mmHg - IVC diameter 1.5 cm - Name Value Normal Range PV Vmax 0.79 m/sec - PV peak gradient 2.53 mmHg - Wallmotion BAS Normal BA Normal BAL Normal LUISA Normal BI Normal BIS Normal MAS Hypokinetic MA Hypokinetic MAL Akinetic MIL Hypokinetic NE Normal MIS Normal Akinetic AA Akinetic AL Akinetic AI Akinetic APEX Akinetic
[2018-01-14] MEDS: CMCS Rosuvastatin (NF) 5 MG TAB PO SCH (18:50)
[2018-01-14 19:37] LABS: ABS Basophils 0.1 10^3/ul (0-0.2); ABS Eosinophils 0.1 10^3/ul (0-0.6); ABS Lymphocytes 2.3 10^3/ul (1.0-4.8); ABS Monocytes 0.6 10^3/ul (0-0.8); ABS Neutrophils 8.7 10^3/ul (1.5-7.7); ABS Nucleated RBC 0 10^3/ul; Eosinophil % 0.7 % (0-6); Hematocrit 35 % (35-47); Hemoglobin 11.2 g/dl (12.0-16.0); Lymphocyte % 19.3 % (25-47); Mean Corpuscular HGB Conc 32 g/dl (31-36); Mean Corpuscular Hemoglobin 28 pg (27-31); Mean Corpuscular Volume 87 fL (80-97); Mean Platelet Volume 8.4 um3 (7.4-10.4); Nucleated Red Blood Cells % 0.1; Platelet Count 431 10^3/ul (150-450); Red Blood Count 3.95 10^6/ul (4.0-5.4); Red Cell Distribution Width 16 % (10.5-15); White Blood Count 11.7 10^3/ul (3.5-10.8)
[2018-01-14] MEDS ORDERED: [UNRECOGNIZED DRUG - OTHER] BOTH EYES PRN (20:29)
--- NOTE | 2018-01-14 21:00 | PN ---
Cardiology Progress Note Date of Service: 01/14/18 Patient has LVEF of 30% and new extensive mid-LAD territory wall motion abnormalities on echo. I discussed with Dr. Luciano and he does not think patient is a good candidate for further revascularization and recommends medical therapy. Patient may eventually be an ICD candidate and we discussed this. She is pain free currently. Given ICM and post-NE unrevascularized I think her SCD risk is potentially high enough to warrant a lifevest pending repeat LVEF assessment on appropriate medical treatment. She will consider this. She has a previously scheduled appointment with Dr. Sandoval on 2017
[2018-01-14] MEDS: Ticagrelor* 90 MG TAB PO SCH (21:42)
--- NOTE | 2018-01-14 23:19 | HP ---
CC: Brody Caraballo MD; Dr. Sandoval * HISTORY AND PHYSICAL: DATE OF ADMISSION: 01/14/18 PRIMARY CARE PROVIDER: Brody Caraballo MD ATTENDING PHYSICIAN: Joseph Peterson MD * (dictated by Isha Vaz NP). CHIEF COMPLAINT: Chest pain. HISTORY OF PRESENT ILLNESS: Ms. Mendosa is a 78-year-old female with past medical history significant for coronary artery disease, status post 3-vessel CABG and 5 stents; hypertension; hyperlipidemia, who states that she has been under a lot of stress lately with her 's advanced dementia and wandering off. In addition, she has a daughter with advanced MS, who was placed into [facility] yesterday. Ms. Mendosa states that she had been in her usual state of health; denying any fevers, chills, diarrhea. She states that she has had a right ankle swelling for one month. She states that usually only her right leg that is swollen and not her left leg. She also reports some lightheadedness and always being cold. She states that last evening her wandered off and while she was looking for him, she developed a chest discomfort across her chest and into her bilateral arms. She reported this as feeling similar to her previous MIs. It is also noted that the patient was seen in September 2016 with a NSTEMI, was transferred to [place] and they were unable to do any stenting at that time. The patient reports chest pressure, shortness of breath with exertion for 1 year, and nausea and vomiting today that have mostly resolved with the exception of some dry heaving. She states that she took 3 nitro. Initially the pain would decrease for 20 minutes and then became worse. When the pain continued after 3 nitro, she decided to call EMS to come to the emergency room. While in the emergency room, the patient's pain was initially an 8-9/10. During her stay it decreased to a 3/10. She was started on a heparin drip. She had labs showing a troponin initially of 0.39. This increased to 2.96 during her time in the ER. She had an elevated TSH of 11.95, BNP of 110. She had a chest x-ray showing interstitial congestion and she received 10 mg of IV Lasix. The patient had an EKG showing a sinus rhythm, diffuse T-wave flattening. The patient was seen in consultation by Cardiology. Hospitalists were asked to evaluate the patient for admission. PAST MEDICAL HISTORY: 1. Atherosclerotic heart disease. 2. Hypertension. 3. Hyperlipidemia. 4. Hypothyroidism. PAST SURGICAL HISTORY: 1. Status post coronary artery bypass graft x3 vessels. 2. Status post cardiac catheterizations with a total of 5 stent placements over the course of several years. 3. Status post hysterectomy. HOME MEDICATIONS: Include: 1. Amlodipine 5 mg oral daily. 2. Nitro 0.4 mg sublingual every 5 minutes as needed for chest pain. 3. Metoprolol tartrate 50 mg oral twice daily, the patient states she only takes once daily. 4. Lisinopril 2.5 mg oral twice daily. 5. Levothyroxine 25 mcg oral daily. 6. Brilinta 90 mg oral twice daily, the patient only takes this once daily. 7. Atorvastatin 80 mg oral daily. 8. Aspirin 81 mg oral daily. 9. Imdur ER 60 mg oral daily. 10. Lotrisone cream apply topical as needed. ALLERGIES: CATS. FAMILY HISTORY: The patient's mother had a history of heart failure. The patient's father passed at age 76 from an SC. The patient's brother had a history of heart disease. She denies any family history of diabetes or cancer. SOCIAL HISTORY: The patient denies tobacco, alcohol or recreational drug use. She currently lives with her , who has advanced dementia. The patient's daughter, Rahel Fabian (Fran), will be her surrogate decision maker in the event she is unable to make decisions for herself. REVIEW OF SYSTEMS: I performed an 11-point review of systems. All the pertinent positives and negatives are mentioned in the history of present illness. The remaining review of systems are negative. PHYSICAL EXAMINATION GENERAL APPEARANCE: The patient is alert, pleasant and appears to be in no acute distress. VITAL SIGNS: Temperature 98.6, heart rate 79, respiratory rate 18, O2 sat 96% on 2 L via nasal cannula, blood pressure 133/80. HEENT: Normocephalic, atraumatic. Pupils are equal and reactive to light. Extraocular movements are intact. NECK: Supple. There is no lymphadenopathy noted. RESPIRATORY: There is no accessory muscle use. The lungs are clear to auscultation bilaterally. CARDIOVASCULAR: Regular rate and rhythm. S1 and S2 present. There are no murmurs, rubs or gallops heard. ABDOMEN: Soft, nontender, and nondistended. There are bowel sounds present x4. EXTREMITIES: The patient has trace to 1+ right ankle edema and trace left ankle edema. DP and PT pulses are 2+ and symmetric. MUSCULOSKELETAL: There is no clubbing or cyanosis noted. The patient exhibits good strength in all extremities. NEUROLOGICAL: The patient is alert and oriented x4. Cranial nerves II through XII are grossly intact. PSYCHOLOGICAL: The patient is calm and cooperative. SKIN: There are no rashes or abnormalities seen. DIAGNOSTIC STUDIES/LABORATORY DATA: Sodium 137, potassium 3.7, chloride 102, CO2 of 25, BUN 25, creatinine 0.82, glucose 134. White blood cell count 8.3, hemoglobin 10.7, hematocrit 32, platelet count 482,000. INR 1.03. Troponin 0.39, 2.18, 2.96. TSH 11.95. BNP 110. EKG shows a sinus rhythm with a rate of 76 and diffuse T-wave flattening. EKG when compared to the previous from 09/26/16, the diffuse T-wave flattening is new, although at that time the patient had T-wave inversions in leads V3 to V6. Chest x-ray from today. Radiologist's impression: Interstitial congestion. Suggest followup. Chest thoracic CTA from today. Radiologist's impression: Cardiomegaly with interstitial alveolar edema. The findings are compatible with vascular congestion. No CT evidence for acute pulmonary embolic disease. IMPRESSION: Ms. Mendosa is a 78-year-old female with past medical history significant for atherosclerotic heart disease, hypertension, hyperlipidemia and hypothyroidism, who presented to the emergency room with complaints of chest pressure. She will be admitted as an inpatient for its-KZ-rozymsin myocardial infarction. ASSESSMENT/PLAN: 1. Wws-YM-ctgxaackc myocardial infarction. Continue to trend the patient's troponins until they peak. She will be continued on a heparin drip. We will start a nitro drip. She has already been seen in consultation by Dr. Juanito Javier with Cardiology. Cardiology will continue to follow along. The patient will be continued on her home Brilinta. We will change her metoprolol tartrate to Toprol daily starting now. She will be continued on her home aspirin. The patient reports leg pain with her atorvastatin. We will change her statin to Crestor 5 mg oral daily. We will use fentanyl as needed for anginal pain. We will check an transthoracic echo. We are going to hold the patient's lisinopril and Imdur. At this time, we will medically manage her and there are no plans for a cardiac cath. 2. Hypertension. The patient is currently normotensive. We will continue her Norvasc. We will change her metoprolol tartrate to metoprolol succinate 50 mg oral daily. For now, I am going to hold her lisinopril. 3. History of coronary artery disease. Again, the patient will be continued on her metoprolol, aspirin, and Brilinta and try to change the patient's statin to Crestor to see if this helps with her leg pain. 4. Hyperlipidemia. We will check fasting lipids in the morning and so we can adjust her statins accordingly. She states that she has not been taking this as it causes leg pain. We will try Crestor 5 mg oral daily. 5. Hypothyroidism. The patient's TSH is 11.95. For now, I am going to leave her levothyroxine as it is, but when she is out of this acute illness she should have it rechecked and then adjusted accordingly. 6. Fluids, electrolytes and nutrition. The patient will be on a heart-healthy diet. 7. Code status. Full code. 8. DVT prophylaxis. The patient is at high risk and will be continued on a heparin drip. 9. Disposition. Inpatient. TIME SPENT: Time for this admission was approximately 60 minutes, greater than half of that was spent with the patient and her daughter discussing past medical history, medications, the events leading up to her arrival today, performing a physical examination. The case has been reviewed with the attending, Dr. Peterson, who agrees with the plan of care. Reviewed by JO MAC 01/17/18 [id number]/[facility] #: [id number] TOÑA
[2018-01-15] MEDS ORDERED: Heparin VIAL(*) 5000 UNITS/ML VIAL (FIVE THOUSAND) ONE (01:25)
[2018-01-15] MEDS ORDERED: Heparin VIAL(*) 5000 UNITS/ML VIAL (FIVE THOUSAND) IV PRN (01:36)
[2018-01-15 06:26] LABS: ABS Basophils 0.1 10^3/ul (0-0.2); ABS Eosinophils 0.1 10^3/ul (0-0.6); ABS Lymphocytes 1.8 10^3/ul (1.0-4.8); ABS Monocytes 0.6 10^3/ul (0-0.8); ABS Neutrophils 7.3 10^3/ul (1.5-7.7); ABS Nucleated RBC 0 10^3/ul; Eosinophil % 1.1 % (0-6); Hematocrit 32 % (35-47); Hemoglobin 10.7 g/dl (12.0-16.0); Lymphocyte % 18.3 % (25-47); Mean Corpuscular HGB Conc 33 g/dl (31-36); Mean Corpuscular Hemoglobin 29 pg (27-31); Mean Corpuscular Volume 86 fL (80-97); Mean Platelet Volume 8.5 um3 (7.4-10.4); Nucleated Red Blood Cells % 0; Platelet Count 359 10^3/ul (150-450); Red Blood Count 3.71 10^6/ul (4.0-5.4); Red Cell Distribution Width 16 % (10.5-15); White Blood Count 9.9 10^3/ul (3.5-10.8)
[2018-01-15 06:28] LABS: EGFR Non-African American 58.9 (>60)
[2018-01-15] MEDS: Levothyroxine TAB* 25 MCG TAB PO SCH (06:57)
[2018-01-15] MEDS: Aspirin 81 mg CHEW TAB* 81 MG TAB.CHEW PO SCH (07:57)
[2018-01-15] MEDS: Lisinopril TAB* 5 MG PO SCH (07:57)
[2018-01-15] MEDS: Ticagrelor* 90 MG TAB PO SCH ×2 (07:58→20:43)
[2018-01-15] MEDS: Potassium Chlor TAB* 20 MEQ TAB.ER PO SCH ×2 (07:58→11:13)
--- NOTE | 2018-01-15 08:34 | PN ---
Subjective Date of Service: 01/15/18 Interval History: HOSPITALIST PROGRESS NOTE Patient seen and examined at bedside. Care reviewed and d/w Long Allison RN. Labs, xrays, and EKGs reviewed. She feels better this AM. Chest and jaw pain are improved, denies dyspnea or palpitations. ROS: 14 points ROS performed, pertinent negatives and positives as above. Family History: Unchanged from Admission Social History: Unchanged from Admission Past Medical History: Unchanged from Admission Objective Active Medications: Aspirin (Aspirin 81 Mg Chew Tab*) 81 mg PO DAILY [facility] Last Admin: 01/15/18 07:57 Dose: 81 mg Fentanyl Citrate (Fentanyl*) 25 mcg IV SLOW PU Q1H PRN PRN Reason: PAIN - CHEST Heparin Sodium (Porcine) (Heparin Vial(*)) 0 units IV .PRN BOLUS PRN PRN Reason: HEPARIN DRIP BOLUS PROTOCOL Last Admin: 01/15/18 01:47 Dose: 1,700 units Heparin Sodium/Dextrose (Heparin Drip 25,000 Units(*)) 25,000 units in 500 mls @ 0 mls/hr IV PER RATE JORGE; Per Protocol PRN Reason: Protocol Nitroglycerin/Dextrose (Nitroglycerin Drip*) 25,000 mcg in 250 mls @ 6 mls/hr IV .PER PARAMETERS JORGE; 10 MCG/MIN PRN Reason: Protocol Last Admin: 01/14/18 14:50 Dose: 6 mls/hr Levothyroxine Sodium (Synthroid Tab*) 25 mcg PO 0600 [facility] Last Admin: 01/15/18 06:57 Dose: 25 mcg Lisinopril (Prinivil Tab*) 5 mg PO DAILY [facility] Last Admin: 01/15/18 07:57 Dose: 5 mg Metoprolol Succinate (Toprol Xl Tab*) 50 mg PO DAILY [facility] Pto Nf Med* Retaine Mgd (Eye Lubricant, Otc) 1 admin BOTH EYES BID PRN PRN Reason: DRY EYES Ondansetron HCl (Zofran Inj*) 4 mg IV Q6H PRN PRN Reason: NAUSEA Potassium Chloride (Klor Con Er Tab*) 40 meq PO ONCE ONE Stop: 01/15/18 20:00 Potassium Chloride (Klor Con Er Tab*) 40 meq PO Q4H JORGE Stop: 01/15/18 12:01 Last Admin: 01/15/18 07:58 Dose: 40 meq Rosuvastatin Calcium (Crestor (Nf)) 5 mg PO Q24H [facility] PRN Reason: Protocol Last Admin: 01/14/18 18:50 Dose: Not Given Ticagrelor (Brilinta*) 90 mg PO BID [facility] Last Admin: 01/15/18 07:58 Dose: 90 mg Vital Signs - 8 hr 01/15/18 01/15/18 01/15/18 04:00 05:00 05:24 Temperature 97.8 F Pulse Rate 60 56 Respiratory 13 24 22 Rate Blood Pressure 103/65 86/47 (mmHg) O2 Sat by Pulse 95 95 Oximetry 01/15/18 01/15/18 01/15/18 06:00 06:01 07:00 Temperature Pulse Rate 55 54 59 Respiratory 22 4 21 Rate Blood Pressure 99/53 105/61 (mmHg) O2 Sat by Pulse 94 94 96 Oximetry 01/15/18 01/15/18 07:01 07:52 Temperature 99.0 F Pulse Rate 56 Respiratory 17 Rate Blood Pressure (mmHg) O2 Sat by Pulse 96 Oximetry Oxygen Devices in Use Now: Nasal Cannula - 2 liters Appearance: Elderly lady lying in bed in NAD. Eyes: No Scleral Icterus Ears/Nose/Mouth/Throat: Mucous Membranes Moist Neck: Trachea Midline Respiratory: Symmetrical Chest Expansion and Respiratory Effort, Clear to Auscultation Cardiovascular: RRR - Normal S1 and S2 Abdominal: NL Sounds; No Tenderness; No Distention Extremities: No Edema Neurological: Alert and Oriented x 3, NL Muscle Strength and Tone Result Diagrams: 01/15/18 05:53 01/15/18 05:53 Assess/Plan/Problems-Billing Assessment: Mrs. Mendosa is a 78yo F with PMH of CAD (s/p CABG and 5 stents), HTN, HLD, hypothyroidism, who presented to ED with c/o chest pain and dyspnea, found to have a NSTEMI. - Patient Problems (1) NSTEMI (non-ST elevated myocardial infarction) Comment: - Cardiology input appreciated - EKG changes suggestive of diagonal lesion, echo showed EF 30% (down to 45% in ) and LAD territory wall motion abnormality. - Troponin peaked at 7.5. - Chest pain free now. - Dr Javier d/w Dr Luciano - patient is not a good candidate for further revascularization and recommends medical management. - Continue heparin drip to complete 48h, Aspirin, Brilinta, Crestor, and Metoprolol. (2) Systolic CHF, acute on chronic Comment: - EF 30%, down from 45% in September 2016. - Cardiology input appreciated - continue gentle diuresis and ACEI. Will add Aldactone in the near future. - With her CAD and depressed EF she's at risk for sudden - plan for Life Vest on discharge and f/u with Dr. Sandoval 01/24/18 for repeat EF evaluation and decision re: ICD placement. (3) HTN (hypertension) Comment: - Controlled - continue metoprolol and lisinopril. (4) HLD (hyperlipidemia) Comment: - LDL 115 - continue Crestor as tolerated. (5) Hypothyroidism Comment: - TSH 11.95 - check Free T4 and T3. - Continue levothyroxine. (6) DVT prophylaxis Comment: - Heparin. (7) Full code status Status and Disposition: Inpatient for management of NSTEMI.
[2018-01-15] MEDS ORDERED: amLODIPine TAB* 5 MG PO SCH (09:00)
--- NOTE | 2018-01-15 09:58 | PN ---
Subjective Date of Service: 01/15/18 Interval History: f/u [place], CHF No chest pain this AM Breathing improved Tele SB/SR, brief AIVR overnight Medications Active Medications: Aspirin (Aspirin 81 Mg Chew Tab*) 81 mg PO DAILY [facility] Last Admin: 01/15/18 07:57 Dose: 81 mg Fentanyl Citrate (Fentanyl*) 25 mcg IV SLOW PU Q1H PRN PRN Reason: PAIN - CHEST Furosemide (Lasix Tab*) 20 mg PO DAILY [facility] Heparin Sodium (Porcine) (Heparin Vial(*)) 0 units IV .PRN BOLUS PRN PRN Reason: HEPARIN DRIP BOLUS PROTOCOL Last Admin: 01/15/18 01:47 Dose: 1,700 units Heparin Sodium/Dextrose (Heparin Drip 25,000 Units(*)) 25,000 units in 500 mls @ 0 mls/hr IV PER RATE [facility]; Per Protocol PRN Reason: Protocol Levothyroxine Sodium (Synthroid Tab*) 25 mcg PO 0600 [facility] Last Admin: 01/15/18 06:57 Dose: 25 mcg Lisinopril (Prinivil Tab*) 5 mg PO DAILY [facility] Last Admin: 01/15/18 07:57 Dose: 5 mg Metoprolol Succinate (Toprol Xl Tab*) 50 mg PO DAILY [facility] Pto Nf Med* Retaine Mgd (Eye Lubricant, Otc) 1 admin BOTH EYES BID PRN PRN Reason: DRY EYES Ondansetron HCl (Zofran Inj*) 4 mg IV Q6H PRN PRN Reason: NAUSEA Potassium Chloride (Klor Con Er Tab*) 40 meq PO ONCE ONE Stop: 01/15/18 20:00 Potassium Chloride (Klor Con Er Tab*) 40 meq PO Q4H [facility] Stop: 01/15/18 12:01 Last Admin: 01/15/18 07:58 Dose: 40 meq Rosuvastatin Calcium (Crestor (Nf)) 5 mg PO Q24H [facility] PRN Reason: Protocol Last Admin: 01/14/18 18:50 Dose: Not Given Ticagrelor (Brilinta*) 90 mg PO BID [facility] Last Admin: 01/15/18 07:58 Dose: 90 mg Objective Vital Signs: Temp Pulse Resp BP Pulse Ox 99.0 F 56 20 105/61 96 01/15/18 07:52 01/15/18 07:01 01/15/18 08:00 01/15/18 07:00 01/15/18 07:01 Oxygen Devices in Use Now: None Appearance: very pleasant, nad Ears/Nose/Mouth/Throat: Clear Oropharnyx Neck: Trachea Midline, - - uncertain jvp Respiratory: Symmetrical Chest Expansion and Respiratory Effort - rales right base, - Cardiovascular: RRR, - - no significant murmr Abdominal: NL Sounds; No Tenderness; No Distention Extremities: No Clubbing, Cyanosis, - - 1+ edema Skin: No Rash or Ulcers Neurological: Alert and Oriented x 3 Laboratory Results: 01/15/18 05:53 01/15/18 05:53 INR (Anticoag Therapy) 1.03 (0.77-1.02) H 01/14/18 07:37 APTT 40.2 seconds (26.0-36.3) H 01/15/18 00:09 Total Bilirubin 0.40 mg/dL (0.2-1.0) 01/14/18 07:37 AST 16 U/L (13-39) 01/14/18 07:37 ALT 6 U/L (7-52) L 01/14/18 07:37 Alkaline Phosphatase 96 U/L (34-104) 01/14/18 07:37 B-Natriuretic Peptide 110 pg/mL (-100) H 01/14/18 07:37 Total Protein 8.2 g/dL (6.4-8.9) 01/14/18 07:37 Albumin 4.0 g/dL (3.2-5.2) 01/14/18 07:37 Globulin 4.2 g/dL (2-4) H 01/14/18 07:37 Albumin/Globulin Ratio 1.0 (1-3) 01/14/18 07:37 Triglycerides 76 mg/dL 01/15/18 05:53 Cholesterol 179 mg/dL 01/15/18 05:53 LDL Cholesterol 115 mg/dL 01/15/18 05:53 HDL Cholesterol 49.1 mg/dL 01/15/18 05:53 TSH 11.95 mcIU/mL (0.34-5.60) H 01/14/18 07:37 01/14/18 01/14/18 01/15/18 16:23 19:10 00:09 Troponin I 3.61 H* 7.39 H* 7.58 H* 01/15/18 01/15/18 03:13 05:53 Troponin I 7.22 H* 6.32 H* Diagnostic Imaging: CTA 01/14/2018: Intersitial and alveolar edema EKG Data: ekg admission: NSR 80 bpm, subtle 0.[address] elevation 1 and aVL with reciprocal 0.[address] depression inferior leads. Prior EKG from 09/26/2016 with deep symmetric TWI inverios precordial 1 and aVL suggestive of anterior wall ischemia. No EKG baseline since then for comparison to current Assessment/Plan Michaelle Mendosa is 78 year old woman with a complex CAD history presents with AMI complicated by CHF LVEF 30% now asymptomatic and improving with medical therapy. Discussed with Dr. Luciano and it is felt that further revascularization would not be beneficial. - Patient now pain free and troponin peaked at less than 10. Given extensive LAD territory WMA on echo I suspect still has viable myocardium. - Continue heparin gtt x 48 hours - Continue toprol 50 mg po daily, give a little later today - Given another dose of lasix today (ordered), would need a low dose intermittent loop diuretic at discharge. Would like to add aldactone at some point - Continue lisinopril 5 mg po daily - d/c nitro gtt and PRN narcotics (ordered). - Contine crestor 5 mg - Continue aspirin 81 mg po daily - Continue brillinta 90 mg po bid which she hopefully will be willing to take BID, will re-evaluate. - She will consider lifevest, she tells me has f/u appt with Dr Sandoval 2017. Would need repeat LVEF evaluation prior to primary prevention ICD consideration. Thank you for allowing me to participate in the cardiovascular care of this patient. Please do not hesitate to contact me with questions or concerns.
[2018-01-15] MEDS: Metoprolol Succinate XL TAB* 50 MG PO SCH (10:07)
[2018-01-15] MEDS: Heparin DRIP 25,000 UNITS(*) 25,000 UNITS/500 ML BAG IV SCH ×2 (11:10→18:22)
[2018-01-15] MEDS ORDERED: Furosemide TAB* 20 MG PO SCH (12:00)
[2018-01-15] MEDS: CMCS Rosuvastatin (NF) 5 MG TAB PO SCH (18:24)
[2018-01-15] MEDS ORDERED: Potassium Chlor TAB* 20 MEQ TAB.ER PO ONE (19:59)
[2018-01-15] MEDS ORDERED: Acetaminophen TAB* 325 MG PO PRN (22:28)
[2018-01-15] MEDS ORDERED: Acetaminophen TAB* 325 MG ONE (22:30)
[2018-01-16 06:13] LABS: ABS Basophils 0 10^3/ul (0-0.2); ABS Eosinophils 0.3 10^3/ul (0-0.6); ABS Monocytes 0.7 10^3/ul (0-0.8); ABS Neutrophils 5.2 10^3/ul (1.5-7.7); ABS Nucleated RBC 0 10^3/ul; Eosinophil % 3.2 % (0-6); Hematocrit 32 % (35-47); Hemoglobin 10.4 g/dl (12.0-16.0); Lymphocyte % 32.2 % (25-47); Mean Corpuscular HGB Conc 33 g/dl (31-36); Mean Corpuscular Hemoglobin 29 pg (27-31); Mean Corpuscular Volume 87 fL (80-97); Mean Platelet Volume 8.3 um3 (7.4-10.4); Nucleated Red Blood Cells % 0; Platelet Count 347 10^3/ul (150-450); Red Blood Count 3.63 10^6/ul (4.0-5.4); Red Cell Distribution Width 16 % (10.5-15); White Blood Count 9.2 10^3/ul (3.5-10.8)
[2018-01-16 06:34] LABS: EGFR Non-African American 48.9 (>60)
[2018-01-16] MEDS: Levothyroxine TAB* 25 MCG TAB PO SCH (06:39)
[2018-01-16] MEDS: Ticagrelor* 90 MG TAB PO SCH ×2 (08:18→20:59)
[2018-01-16] MEDS: Lisinopril TAB* 5 MG PO SCH (08:18)
[2018-01-16] MEDS: Aspirin 81 mg CHEW TAB* 81 MG TAB.CHEW PO SCH (08:18)
--- NOTE | 2018-01-16 08:25 | PN ---
Subjective Date of Service: 01/16/18 Interval History: f/u [place], CHF No chest pain or dyspnea edema improved tele: asymptomatic sinus benitez/sinus rhythm Medications Active Medications: Acetaminophen (Tylenol Tab*) 650 mg PO Q4H PRN PRN Reason: PAIN Last Admin: 01/15/18 22:31 Dose: 650 mg Aspirin (Aspirin 81 Mg Chew Tab*) 81 mg PO DAILY [facility] Last Admin: 01/16/18 08:18 Dose: 81 mg Furosemide (Lasix Tab*) 20 mg PO Q72HR [facility] Heparin Sodium (Porcine) (Heparin Vial(*)) 0 units IV .PRN BOLUS PRN PRN Reason: HEPARIN DRIP BOLUS PROTOCOL Last Admin: 01/15/18 01:47 Dose: 1,700 units Heparin Sodium/Dextrose (Heparin Drip 25,000 Units(*)) 25,000 units in 500 mls @ 0 mls/hr IV PER RATE [facility]OR[facility]; Per Protocol PRN Reason: Protocol Last Admin: 01/15/18 18:22 Dose: 21 mls/hr Levothyroxine Sodium (Synthroid Tab*) 25 mcg PO 0600 [facility] Last Admin: 01/16/18 06:39 Dose: 25 mcg Lisinopril (Prinivil Tab*) 5 mg PO DAILY [facility] Last Admin: 01/16/18 08:18 Dose: 5 mg Metoprolol Succinate (Toprol Xl Tab*) 50 mg PO DAILY [facility] Last Admin: 01/15/18 10:07 Dose: 50 mg Nitroglycerin (Nitroglycerin 10 Mg Patch*) 1 patch TRANSDERM DAILY [facility] Pto Nf Med* Retaine Mgd (Eye Lubricant, Otc) 1 admin BOTH EYES BID PRN PRN Reason: DRY EYES Ondansetron HCl (Zofran Inj*) 4 mg IV Q6H PRN PRN Reason: NAUSEA Pharmacy Profile Note (Nitro Patch/Oint Remove*) 1 note PATCH OFF 2100 [facility] Pharmacy Profile Note (Nitro Patch/Oint Remove*) 1 note TOPICAL .WIPE OFF AFTER D/C [facility] Rosuvastatin Calcium (Crestor (Nf)) 5 mg PO Q24H [facility] PRN Reason: Protocol Last Admin: 01/15/18 18:24 Dose: 5 mg Ticagrelor (Brilinta*) 90 mg PO BID [facility] Last Admin: 01/16/18 08:18 Dose: 90 mg Objective Vital Signs: Temp Pulse Resp BP Pulse Ox 98.2 F 46 16 110/60 95 01/16/18 07:20 01/16/18 07:00 01/16/18 07:00 01/16/18 07:00 01/16/18 07:00 Oxygen Devices in Use Now: None Appearance: very pleasant, nad Ears/Nose/Mouth/Throat: Clear Oropharnyx Neck: Trachea Midline, - - uncertain jvp Respiratory: Symmetrical Chest Expansion and Respiratory Effort - rales right base, - Cardiovascular: RRR, - - no significant murmr Abdominal: NL Sounds; No Tenderness; No Distention Extremities: No Clubbing, Cyanosis, - - 1+ edema Skin: No Rash or Ulcers Neurological: Alert and Oriented x 3 Laboratory Results: 01/16/18 05:49 01/16/18 05:49 INR (Anticoag Therapy) 1.03 (0.77-1.02) H 01/14/18 07:37 APTT 83.8 seconds (26.0-36.3) H 01/16/18 05:49 Total Bilirubin 0.40 mg/dL (0.2-1.0) 01/14/18 07:37 AST 16 U/L (13-39) 01/14/18 07:37 ALT 6 U/L (7-52) L 01/14/18 07:37 Alkaline Phosphatase 96 U/L (34-104) 01/14/18 07:37 B-Natriuretic Peptide 110 pg/mL (-100) H 01/14/18 07:37 Total Protein 8.2 g/dL (6.4-8.9) 01/14/18 07:37 Albumin 4.0 g/dL (3.2-5.2) 01/14/18 07:37 Globulin 4.2 g/dL (2-4) H 01/14/18 07:37 Albumin/Globulin Ratio 1.0 (1-3) 01/14/18 07:37 Triglycerides 76 mg/dL 01/15/18 05:53 Cholesterol 179 mg/dL 01/15/18 05:53 LDL Cholesterol 115 mg/dL 01/15/18 05:53 HDL Cholesterol 49.1 mg/dL 01/15/18 05:53 TSH 11.95 mcIU/mL (0.34-5.60) H 01/14/18 07:37 01/14/18 01/14/18 01/15/18 16:23 19:10 00:09 Troponin I 3.61 H* 7.39 H* 7.58 H* 01/15/18 01/15/18 03:13 05:53 Troponin I 7.22 H* 6.32 H* Diagnostic Imaging: CTA 01/14/2018: Intersitial and alveolar edema EKG Data: ekg admission: NSR 80 bpm, subtle 0.[address] elevation 1 and aVL with reciprocal 0.[address] depression inferior leads. Prior EKG from 09/26/2016 with deep symmetric TWI inverios precordial 1 and aVL suggestive of anterior wall ischemia. No EKG baseline since then for comparison to current ekg 01/15/2018: Sinus bradycardia, deep symmetric T wave inversions across the precordium and 1/aVL Assessment/Plan Michaelle Mendosa is 78 year old woman with a complex CAD history presents with AMI complicated by CHF LVEF 30% now asymptomatic and improving with medical therapy. Discussed with Dr. Luciano and it is felt that further revascularization would not be beneficial. - Patient now pain free and troponin peaked at less than 10. Given extensive LAD territory WMA on echo I suspect still has viable myocardium and infarct not completed - Continue heparin gtt x 48 hours, can d/c today - Continue toprol 50 mg po daily, asymptomatic bradycardia noted - Add lasix 20 mg PO M,W,F (ordered). Consider adding aldactone as an outpatient if hemodynamically stable - Continue lisinopril 5 mg po daily - Contine crestor 5 mg - Continue aspirin 81 mg po daily - Continue brillinta 90 mg po bid. She will agree to take this one medication twice daily - Will change home imdur to nitro patch in case getting some resistance (ordered ) - Please arrange lifevest - She tells me has f/u appt with Dr Sandoval next week - Would need repeat LVEF evaluation prior to primary prevention ICD consideration - Can transfer to telemetry today - Please ambulate to determine for angina - If remains stable without recurrent angina at rest or minimal exertion can be discharged tomorrow. - Discussed with Dr. Goodman Thank you for allowing me to participate in the cardiovascular care of this patient. Please do not hesitate to contact me with questions or concerns.
[2018-01-16] MEDS: Nitroglycerin 0.4 MG/HR PATCH* (10 MG) TRANSDERM SCH (08:46)
[2018-01-16] MEDS ORDERED: Nitro Patch/OINT Remove TOPICAL SCH (09:00)
[2018-01-16] MEDS: Metoprolol Succinate XL TAB* 50 MG PO SCH (11:08)
--- NOTE | 2018-01-16 15:13 | PN ---
Subjective Date of Service: 01/16/18 Interval History: HOSPITALIST PROGRESS NOTE Patient seen and examined at bedside. Care reviewed and d/w Purvi Nation RN. She feels better today, no further episodes of chest pain or dyspnea, but has only gotten out of bed to chair. Family History: Unchanged from Admission Social History: Unchanged from Admission Past Medical History: Unchanged from Admission Objective Active Medications: Acetaminophen (Tylenol Tab*) 650 mg PO Q4H PRN PRN Reason: PAIN Last Admin: 01/15/18 22:31 Dose: 650 mg Aspirin (Aspirin 81 Mg Chew Tab*) 81 mg PO DAILY [facility] Last Admin: 01/16/18 08:18 Dose: 81 mg Furosemide (Lasix Tab*) 20 mg PO Q72HR [facility] Levothyroxine Sodium (Synthroid Tab*) 25 mcg PO 0600 [facility] Last Admin: 01/16/18 06:39 Dose: 25 mcg Lisinopril (Prinivil Tab*) 5 mg PO DAILY [facility] Last Admin: 01/16/18 08:18 Dose: 5 mg Metoprolol Succinate (Toprol Xl Tab*) 50 mg PO DAILY [facility] Last Admin: 01/16/18 11:08 Dose: 50 mg Nitroglycerin (Nitroglycerin 10 Mg Patch*) 1 patch TRANSDERM DAILY [facility] Last Admin: 01/16/18 08:46 Dose: 1 patch Pto Nf Med* Retaine Mgd (Eye Lubricant, Otc) 1 admin BOTH EYES BID PRN PRN Reason: DRY EYES Ondansetron HCl (Zofran Inj*) 4 mg IV Q6H PRN PRN Reason: NAUSEA Pharmacy Profile Note (Nitro Patch/Oint Remove*) 1 note PATCH OFF 2100 [facility] Pharmacy Profile Note (Nitro Patch/Oint Remove*) 1 note TOPICAL .WIPE OFF AFTER D/C [facility] Rosuvastatin Calcium (Crestor (Nf)) 5 mg PO Q24H [facility] PRN Reason: Protocol Last Admin: 01/15/18 18:24 Dose: 5 mg Ticagrelor (Brilinta*) 90 mg PO BID [facility] Last Admin: 01/16/18 08:18 Dose: 90 mg Vital Signs - 8 hr 01/16/18 01/16/18 01/16/18 11:00 11:37 12:00 Temperature 99.4 F Pulse Rate Respiratory 25 20 Rate Blood Pressure 95/53 88/50 (mmHg) O2 Sat by Pulse Oximetry 01/16/18 01/16/18 14:00 14:01 Temperature Pulse Rate Respiratory 22 17 Rate Blood Pressure 92/55 (mmHg) O2 Sat by Pulse Oximetry Oxygen Devices in Use Now: None Appearance: Pleasant elderly lady lying in bed in NAD. Eyes: No Scleral Icterus Ears/Nose/Mouth/Throat: Mucous Membranes Moist Neck: Trachea Midline Respiratory: Symmetrical Chest Expansion and Respiratory Effort, Clear to Auscultation Cardiovascular: RRR - Normal S1 and S2 Abdominal: NL Sounds; No Tenderness; No Distention Extremities: No Edema Neurological: Alert and Oriented x 3, NL Muscle Strength and Tone Result Diagrams: 01/16/18 05:49 01/16/18 05:49 Assess/Plan/Problems-Billing Assessment: Mrs. Mendosa is a 78yo F with PMH of CAD (s/p CABG and 5 stents), HTN, HLD, hypothyroidism, who presented to ED with c/o chest pain and dyspnea, found to have a NSTEMI. - Patient Problems (1) NSTEMI (non-ST elevated myocardial infarction) Comment: - Cardiology input appreciated - EKG changes suggestive of diagonal lesion, echo showed EF 30% (down to 45% in ) and LAD territory wall motion abnormality. - Troponin peaked at 7.5. - Chest pain free now. - Dr Javier d/w Dr Luciano - patient is not a good candidate for further revascularization and recommends medical management. - D/c heparin drip, Aspirin, Brilinta, Crestor, and Metoprolol. - Will d/c Imdur and start Nitro patch. (2) Systolic CHF, acute on chronic Comment: - EF 30%, down from 45% in September 2016. - Cardiology input appreciated - continue gentle diuresis and ACEI. Will add Aldactone in the near future. - With her CAD and depressed EF she's at risk for sudden - plan for Life Vest on discharge and f/u with Dr. Sandoval 01/24/18 for repeat EF evaluation and decision re: ICD placement. (3) HTN (hypertension) Comment: - Controlled - continue metoprolol and lisinopril. (4) HLD (hyperlipidemia) Comment: - LDL 115 - continue Crestor as tolerated. (5) Hypothyroidism Comment: - TSH 11.95 - patient admits she is not compliant with Levothyroxine. - Continue levothyroxine at the same dose. (6) DVT prophylaxis Comment: - SQ Heparin. (7) Full code status Status and Disposition: Inpatient for management of NSTEMI.
[2018-01-16] MEDS: CMCS Rosuvastatin (NF) 5 MG TAB PO SCH (18:00)
[2018-01-16] MEDS ORDERED: Nitro Patch/OINT Remove PATCH OFF SCH (21:00)
[2018-01-17] MEDS ORDERED: Nitroglycerin TAB 0.4 MG* 0.4 MG TAB SL ONE (01:29)
[2018-01-17] MEDS ORDERED: Morphine INJ* 2 MG/ML 1 ML CARPUJECT IV PRN (01:29)
[2018-01-17] MEDS ORDERED: Nitroglycerin TAB 0.4 MG* 0.4 MG TAB ONE (01:33)
[2018-01-17] MEDS ORDERED: Morphine VIAL* 4 MG/ML VIAL (1 ml vial) IV PRN (02:00)
[2018-01-17] MEDS: Levothyroxine TAB* 25 MCG TAB PO SCH (06:03)
[2018-01-17] MEDS: Ticagrelor* 90 MG TAB PO SCH (08:41)
[2018-01-17] MEDS: Metoprolol Succinate XL TAB* 50 MG PO SCH (08:41)
[2018-01-17] MEDS: Aspirin 81 mg CHEW TAB* 81 MG TAB.CHEW PO SCH (08:41)
[2018-01-17] MEDS: Lisinopril TAB* 5 MG PO SCH (08:41)
[2018-01-17] MEDS: Nitroglycerin 0.4 MG/HR PATCH* (10 MG) TRANSDERM SCH (08:42)
[2018-01-17] MEDS ORDERED: Furosemide TAB* 20 MG PO SCH ×2 (09:00)
[2018-01-17] MEDS ORDERED: Isosorbide Mononitrate ER TAB* 60 MG PO SCH (09:00)
--- NOTE | 2018-01-17 09:09 | PN ---
Subjective Date of Service: 01/17/18 Interval History: f/u [place], CHF Patient had angina at rest since being off heparin gtt tele: asymptomatic sinus benitez/sinus rhythm Medications Active Medications: Acetaminophen (Tylenol Tab*) 650 mg PO Q4H PRN PRN Reason: PAIN Last Admin: 01/15/18 22:31 Dose: 650 mg Aspirin (Aspirin 81 Mg Chew Tab*) 81 mg PO DAILY [facility] Last Admin: 01/17/18 08:41 Dose: 81 mg Furosemide (Lasix Tab*) 20 mg PO [id number]@[id number] [facility] Last Admin: 01/17/18 08:41 Dose: 20 mg Isosorbide Mononitrate (Imdur Er Tab*) 60 mg PO DAILY [facility] Levothyroxine Sodium (Synthroid Tab*) 25 mcg PO 0600 [facility] Last Admin: 01/17/18 06:03 Dose: 25 mcg Lisinopril (Prinivil Tab*) 5 mg PO DAILY [facility] Last Admin: 01/17/18 08:41 Dose: 5 mg Metoprolol Succinate (Toprol Xl Tab*) 50 mg PO DAILY [facility] Last Admin: 01/17/18 08:41 Dose: 50 mg Pto Nf Med* Retaine Mgd (Eye Lubricant, Otc) 1 admin BOTH EYES BID PRN PRN Reason: DRY EYES Ondansetron HCl (Zofran Inj*) 4 mg IV Q6H PRN PRN Reason: NAUSEA Rosuvastatin Calcium (Crestor (Nf)) 5 mg PO Q24H [facility] PRN Reason: Protocol Last Admin: 01/16/18 18:00 Dose: 5 mg Ticagrelor (Brilinta*) 90 mg PO BID [facility] Last Admin: 01/17/18 08:41 Dose: 90 mg Objective Vital Signs: Temp Pulse Resp BP Pulse Ox 98.1 F 59 24 103/43 94 01/17/18 07:13 01/17/18 07:13 01/17/18 07:13 01/17/18 07:13 01/17/18 07:13 Oxygen Devices in Use Now: None Appearance: very pleasant, nad Ears/Nose/Mouth/Throat: Clear Oropharnyx Neck: Trachea Midline, - - uncertain jvp Respiratory: Symmetrical Chest Expansion and Respiratory Effort - rales right base, - Cardiovascular: RRR, - - no significant murmr Abdominal: NL Sounds; No Tenderness; No Distention Extremities: No Clubbing, Cyanosis, - - 1+ edema Skin: No Rash or Ulcers Neurological: Alert and Oriented x 3 Laboratory Results: 01/16/18 05:49 01/16/18 05:49 INR (Anticoag Therapy) 1.03 (0.77-1.02) H 01/14/18 07:37 APTT 83.8 seconds (26.0-36.3) H 01/16/18 05:49 Total Bilirubin 0.40 mg/dL (0.2-1.0) 01/14/18 07:37 AST 16 U/L (13-39) 01/14/18 07:37 ALT 6 U/L (7-52) L 01/14/18 07:37 Alkaline Phosphatase 96 U/L (34-104) 01/14/18 07:37 B-Natriuretic Peptide 110 pg/mL (-100) H 01/14/18 07:37 Total Protein 8.2 g/dL (6.4-8.9) 01/14/18 07:37 Albumin 4.0 g/dL (3.2-5.2) 01/14/18 07:37 Globulin 4.2 g/dL (2-4) H 01/14/18 07:37 Albumin/Globulin Ratio 1.0 (1-3) 01/14/18 07:37 Triglycerides 76 mg/dL 01/15/18 05:53 Cholesterol 179 mg/dL 01/15/18 05:53 LDL Cholesterol 115 mg/dL 01/15/18 05:53 HDL Cholesterol 49.1 mg/dL 01/15/18 05:53 TSH 11.95 mcIU/mL (0.34-5.60) H 01/14/18 07:37 01/14/18 01/14/18 01/15/18 16:23 19:10 00:09 Troponin I 3.61 H* 7.39 H* 7.58 H* 01/15/18 01/15/18 03:13 05:53 Troponin I 7.22 H* 6.32 H* Diagnostic Imaging: CTA 01/14/2018: Intersitial and alveolar edema EKG Data: ekg admission: NSR 80 bpm, subtle 0.[address] elevation 1 and aVL with reciprocal 0.[address] depression inferior leads. Prior EKG from 09/26/2016 with deep symmetric TWI inverios precordial 1 and aVL suggestive of anterior wall ischemia. No EKG baseline since then for comparison to current ekg 01/15/2018: Sinus bradycardia, deep symmetric T wave inversions across the precordium and 1/aVL Assessment/Plan Michaelle Mendosa is 78 year old woman with a complex CAD history presents with AMI complicated by CHF LVEF 30%. She is now having episodes of angina at rest after being off of heparin gtt. troponin peaked at less than 10. Given extensive LAD territory WMA on echo I suspect still has viable myocardium and infarct not completed - Restart heparin gtt today - Continue toprol 50 mg po daily, asymptomatic bradycardia noted - Continue lasix 20 mg PO M,,F (ordered - Continue lisinopril 5 mg po daily - Contine crestor 5 mg - Continue aspirin 81 mg po daily - Continue brillinta 90 mg po bid. - on Imdur - Discussed with Dr. James who recommended transfer for cardiac catheterization and consideration of revascularization. Discussed with Dr. Luciano who has agreed to accept patient at [facility] Thank you for allowing me to participate in the cardiovascular care of this patient. Please do not hesitate to contact me with questions or concerns.
[2018-01-17] MEDS ORDERED: Heparin DRIP 25,000 UNITS(*) 25,000 UNITS/500 ML BAG IV SCH (09:30)
[2018-01-17] MEDS ORDERED: Heparin VIAL(*) 5000 UNITS/ML VIAL (FIVE THOUSAND) IV PRN (09:37)
[2018-01-17 10:30] LABS: ABS Basophils 0.1 10^3/ul (0-0.2); ABS Eosinophils 0.2 10^3/ul (0-0.6); ABS Monocytes 0.5 10^3/ul (0-0.8); ABS Neutrophils 5.3 10^3/ul (1.5-7.7); ABS Nucleated RBC 0 10^3/ul; Eosinophil % 2.8 % (0-6); Hematocrit 32 % (35-47); Hemoglobin 10.4 g/dl (12.0-16.0); Lymphocyte % 24.2 % (25-47); Mean Corpuscular HGB Conc 33 g/dl (31-36); Mean Corpuscular Hemoglobin 29 pg (27-31); Mean Corpuscular Volume 87 fL (80-97); Mean Platelet Volume 8.3 um3 (7.4-10.4); Nucleated Red Blood Cells % 0; Platelet Count 365 10^3/ul (150-450); Red Blood Count 3.65 10^6/ul (4.0-5.4); Red Cell Distribution Width 16 % (10.5-15); White Blood Count 8.1 10^3/ul (3.5-10.8)
[2018-01-17 10:53] LABS: EGFR Non-African American 47.4 (>60)
[2018-01-17 12:19] VITALS: BP 84/48
--- NOTE | 2018-01-17 14:07 | TRS ---
CC: Dr. Caraballo; Dr. Sandoval; Dr. Javier; Dr. Luciano, [facility] * DATE OF ADMISSION: 01/14/2018. DATE OF TRANSFER: 01/17/2018. DISCHARGE DIAGNOSES: 1. Ehs-YL-eizwiejps IA. 2. Acute systolic CHF exacerbation. SECONDARY DIAGNOSES: 1. Coronary artery disease, status post CABG and five stents. 2. Hypertension. 3. Hyperlipidemia. 4. Hypothyroidism. 5. Medication noncompliance. MEDICATIONS AT THE TIME OF TRANSFER: 1. Acetaminophen 650 mg p.o. q.4 hours prn pain or fever. 2. Aspirin 81 mg p.o. daily. 3. Furosemide 20 mg on Mondays, Wednesdays, Fridays. 4. Heparin drip at 750 units an hour. 5. Imdur 60 mg p.o. daily. 6. Levothyroxine 25 mcg p.o. daily. 7. Metoprolol Succinate 50 mg p.o. daily. 8. Lisinopril 5 mg p.o. daily. 9. Ondansetron 4 mg IV q.6 hours prn nausea and vomiting. 10. Retaine eye lubricant to both eyes twice a day as needed for dry eyes. 11. Rosuvastatin 5 mg p.o. q.24 hours. 12. Brilinta 90 mg p.o. b.i.d. HOSPITAL COURSE: Ms. Mendosa is a 78-year-old lady with a past medical history as stated above who presented to the emergency room on January 14 with complaints of chest pain. The patient is going through a very stressful moment in her life as her daughter was placed in a senior care due to multiple sclerosis and she is trying to place her at the same facility due to his advanced dementia. She has been noncompliant with all her medications, including not taking her thyroid medications and taking her Brilinta just once a day due to her overwhelming situation. She had noted progressive lower extremity edema for a month and she developed chest pain that felt similar to her prior IA's. For more details about her presentation, I refer you to her history and physical. The patient's initial troponin was 0.39 and it peaked at 7.5. The patient was admitted to the Intensive Care Unit and started on a Heparin drip. Her work-up included a chest x-ray that showed interstitial congestion and a CTA of the chest that showed cardiomegaly with interstitial and alveolar edema compatible with vascular congestion and no evidence of PE. Transthoracic echocardiogram showed a severely decreased left ventricular systolic function with an ejection fraction of 30 percent and extensive mid LAD territory wall motion abnormalities. Both findings are new when compared to her prior echo from September 2016. The patient was seen in consultation by Cardiology (Dr. Javier) and his impression was that her findings were suggestive of diagonal injury and after discussing with Interventional Cardiology, decision was made to continue medical management. He discussed the case with Dr. Luciano and at that point he did not think the patient was a good candidate for further revascularization and recommended medical therapy. Dr. Javier felt that her sudden cardiac risk was high enough to warrant a Life Vest and the plan at that point was to continue medical management and discharge her home with a Life Vest to follow- up with Dr. Sandoval on January 26. The patient was kept on a Heparin drip for 48 hours, but unfortunately after that medication was discontinued, the patient developed angina at rest. She had an episode of chest pain on January 17 that woke her up from her sleep. At that point, she was started on a Heparin drip once again and Dr. Javier contact Dr. Luciano who accepted the patient for transfer to [facility]. Our ship rigger apprentice feels that he would not have any other options to offer her here and the plan is to transfer her to a facility with cardio-thoracic surgery capability in case Dr. Luciano cannot perform any further revascularization, she may be a candidate for another bypass , but she does have a very complex coronary artery disease anatomy. The patient also developed left leg pain today and a lower extremity Doppler was ordered, but has not yet been done. We will not delay her transfer for this test, but this should be considered at [facility] to pursue a lower extremity Doppler at that time. PHYSICAL EXAMINATION: General: The patient is a pleasant lady, lying in bed in no acute distress. Vital Signs: Temperature 98.2, heart rate 62, respiratory rate 22, oxygen saturation 96 percent on room air, blood pressure 84/48. CVS Normal S1, S2. Regular rate and rhythm. Chest: Breath sounds bilaterally with crackle on the right base. Abdomen: Soft. Bowel sounds are present. Extremities: There is trace lower extremity edema on the right ankle. Neuro: She is alert and oriented times three, able to move all four extremities. DIET: Heart-healthy diet. ACTIVITY: Bedrest. STATUS WHILE IN THE HOSPITAL: Inpatient. DISPOSITION: To [facility] for further cardiac evaluation. At the time of this dictation, the patient is symptomatic with no complaints of chest pain or shortness of breath. Please keep in mind this is a summarized version of this patient's hospital stay. If you need more information, please feel free to call me at or please obtain the full medical records. Approximately 50 minutes were spent to complete this discharge. [id number]/[facility] #: [id number] TOÑA
== END 2018-01-17 14:02 | disposition short-term general hospital (02) | DRG 280 ==
LOC: ED 06:14 → ICU 13:01 → MEDTELE 01-16 19:45
PROVIDERS: ADMIT Student in an Organized Health Care Education/Training Program; ATTEND Internal Medicine
DX: I21.4 Non-ST elevation (NSTEMI) myocardial infarction (principal); I50.23 Acute on chronic systolic (congestive) heart failure; I11.0 Hypertensive heart disease with heart failure; I25.119 Atherosclerotic heart disease of native coronary artery with unspecified angina pectoris; E78.5 Hyperlipidemia, unspecified; E03.9 Hypothyroidism, unspecified; J30.81 Allergic rhinitis due to animal (cat) (dog) hair and dander; Z91.14 Patient's other noncompliance with medication regimen; Z95.5 Presence of coronary angioplasty implant and graft; Z95.1 Presence of aortocoronary bypass graft; Z79.82 Long term (current) use of aspirin; Z79.899 Other long term (current) drug therapy; Z82.49 Family history of ischemic heart disease and other diseases of the circulatory system
CPT/HCPCS: 36415; 71045; 71275; 80048; 80053; 80061; 82565; 83605; 83735; 83880; 84439; 84443; 84479; 84484; 84520; 85025; 85610; 85730; 87641; 93005; 93306; 99285; A9270-GY; J1644; J1940; J2270; Q9967

== ENCOUNTER 2018-08-08 15:55 | Inpatient (IN) | payer MEDICARE ==
[2018-08-08] MEDS ORDERED: NS 0.9% 1000 ML* 1,000 ML IV ONE (16:15)
[2018-08-08] MEDS ORDERED: Nitroglycerin TAB 0.4 MG* 0.4 MG TAB SL ONE ×2 (16:15→17:16)
--- NOTE | 2018-08-08 16:19 | ED ---
HPI Chest Pain - HPI Summary HPI Summary: Pt is a 78 y/o female with hx multiple OK's, brought in by EMS who presents to the ED c/o CP. She has been out of her cardiac medications for the past 2 days because she couldn't afford them. Today she felt CP coming on while visiting her daughter. It gradually worsened to a 10/10 in severity. The pain was described as similar to her prior MIs, and was located in the mid-right of her chest radiating to both arms. She also c/o nausea, SOB, and mild abdominal pain. She denies any CASTILLO or palpitations. Pt was given ASA and NTG by EMS, which relieved the pain down to a 3/10 in severity. Her normal farm management professor is Dr. Sandoval, and Dr. Phelps treated her last year during her OK. Pt believes this is brought on by stress, since her recently . Her last cardiac stress test was last year. Pt was supposed to get another stent placed, but is using medications instead, because placement of the stent was complicated , per pt. She feels the medications arent working as well as a stent, and recently has been having some CP and SOB. Pt is accompanied by her son. FHx cardiac disease. Home Medications Medication Instructions Recorded Confirmed Type Aspirin 81 mg CHEW TAB* 81 mg PO DAILY #0 tab.chew 09/13/15 01/14/18 Rx Atorvastatin* [Lipitor 80 MG*] 80 mg PO DAILY 09/13/16 01/14/18 History Lisinopril TAB* [Prinivil TAB 5 2.5 mg PO BID #60 tab 09/17/16 01/14/18 Rx MG*] Metoprolol Tartrate TAB* 50 mg PO BID #60 tab 09/17/16 01/14/18 Rx [Lopressor TAB*] Nitroglycerin TAB 0.4 MG* 0.4 mg SL Q5M PRN #25 tab 09/17/16 01/14/18 Rx Ticagrelor* [Brilinta 90 MG*] 90 mg PO BID #60 tab 09/17/16 01/14/18 Rx amLODIPine TAB* [Norvasc 5 mg TAB*] 5 mg PO DAILY 09/26/16 01/14/18 History Clotrimazole/Betamethasone* 1 applic TOPICAL DAILY PRN 01/14/18 01/14/18 History [Lotrisone Cream*] Isosorbide Mononitrate ER TAB* 60 mg PO DAILY 01/14/18 01/14/18 History [Imdur ER TAB*] Levothyroxine TAB* [Synthroid TAB*] 25 mcg PO DAILY 01/14/18 01/14/18 History - History of Current Complaint Hx Obtained From: Patient Onset/Duration: Started Hours Ago - RESEARCH DIRECTOR, Resolved Timing: Constant Initial Severity: Severe - 06/22 Current Severity: Mild Pain Intensity: 3 Pain Scale Used: 0-10 Numeric Chest Pain Location: Mid Sternal - Right-sided Chest Pain Radiates: Yes Chest Pain Radiates To:: Arm - Both Character: Pressure/Squeezing, Other: - similar to prior MIs Aggravating Factor(s): Medications - Off cardiac meds for 2 days Alleviating Factor(s): NTG 123, EMS Tx - ASA Associated Signs and Symptoms: Positive: Chest Pain, Recent Stress, Shortness of Breath, Nausea, Abdominal Pain. Negative: Headaches, Palpitations Related History: Similar Episode/Dx as: - OK - Additional Pertinent History Primary Care Physician: [id number] - Allergy/Home Medications Allergies/Adverse Reactions: Allergies Allergy/AdvReac Type Severity Reaction Status Date / Time cat dander Allergy Intermediate Congestion Verified 01/15/18 01:41 Home Medications: Home Medications Atorvastatin* [Lipitor*] 80 mg PO DAILY 08/08/18 [History Confirmed 08/08/18] Lisinopril TAB* [Prinivil TAB 5 MG*] 5 mg PO DAILY 08/08/18 [History Confirmed 08/08/18] Metoprolol Tartrate TAB* [Lopressor TAB*] 25 mg PO DAILY 08/08/18 [History Confirmed 08/08/18] PMH/Surg Hx/FS Hx/Imm Hx Endocrine/Hematology History: Reports: Hx Thyroid Disease, Hx Anemia Denies: Hx Diabetes Cardiovascular History: Reports: Hx Angina, Hx Coronary Artery Disease, Hx Hypercholesterolemia, Hx Hypertension, Hx Myocardial Infarction - 2015, [address] Phelps, Hx Syncope, Other Cardiovascular Problems/ Disorders - Stents x5 Denies: Hx Congestive Heart Failure, Hx Pacemaker/ICD, Hx Peripheral Vascular Disease Respiratory History: Denies: Hx Asthma, Hx Chronic Obstructive Pulmonary Disease (COPD), Other Respiratory Problems/Disorders GI History: Reports: Hx Gall Bladder Disease, Hx Gastroesophageal Reflux Disease , Other GI Disorders - CONSTIPATION Denies: Hx Gastrointestinal Bleed, Hx Ulcer Musculoskeletal History: Reports: Hx Arthritis, Hx Back Problems - HIP PAIN TRAVELS TO LOWER SPINE, Other Musculoskeletal History - HIP PAIN Sensory History: Reports: Hx Contacts or Glasses Denies: Hx Hearing Aid Opthamlomology History: Reports: Hx Contacts or Glasses Neurological History: Reports: Hx Headaches, Other Neuro Impairments/Disorders - Numbness to RT thumb Denies: Hx Seizures, Hx Transient Ischemic Attacks (TIA) - Surgical History Surgery Procedure, Year, and Place: Triple Bypass 2007. Stents placed 2008 and 2014. Hysterectomy Infectious Disease History: No Infectious Disease History: Denies: Hx Clostridium Difficile, Hx Hepatitis, Hx Human Immunodeficiency Virus (HIV), History Other Infectious Disease, Traveled Outside the [place] in Last 30 Days - Family History Known Family History: Positive: Cardiac Disease - bypass, CHF, father - OK, Other - MS in daughter - Social History Lives: Alone Alcohol Use: None Hx Substance Use: No Substance Use Type: Reports: None Hx Tobacco Use: No Smoking Status (MU): Never Smoked Tobacco Have You Smoked in the Last Year: No Review of Systems Constitutional: Negative Positive: Chest Pain. Negative: Palpitations Positive: Shortness Of Breath Positive: Abdominal Pain, Nausea Positive: no symptoms reported Musculoskeletal: Negative Skin: Negative Negative: Headache Psychological: Normal All Other Systems Reviewed And Are Negative: Yes Physical Exam - Summary Physical Exam Summary: Appearance: Well-appearing, moderate pain distress, well-nourished Skin: Warm, color reflects adequate perfusion, dry Head: Normal Head/Face inspection, atraumatic Eyes: Conjunctiva clear ENT: Normal inspection Neck: Supple, no nodes, no JVD Respiratory: rales in bilateral bases, dyspnea at rest Cardio: RRR, No murmur, pulses normal, brisk capillary refill Abdomen: Soft, nontender Bowel sounds: Present Musculoskeletal: Strength Intact/ROM intact, no calf tenderness, trace LE edema bilaterally. Psychological: Normal Neuro: Alert, muscle tone normal, no focal deficit Triage Information Reviewed: Yes Vital Signs On Initial Exam: Initial Vitals Temp Pulse Resp BP Pulse Ox 98.1 F 61 18 150/70 98 08/08/18 16:07 08/08/18 16:07 08/08/18 16:07 08/08/18 16:07 08/08/18 16:07 Vital Signs Reviewed: Yes Diagnostics - Vital Signs Vital Signs Temp Pulse Resp BP Pulse Ox 08/08/18 16:07 98.1 F 61 18 150/70 98 - Laboratory Result Diagrams: 08/08/18 16:37 08/08/18 16:37 Lab Statement: Any lab studies that have been ordered have been reviewed, and results considered in the medical decision making process. - Radiology CXR Radiology Interpretation Completed By: Radiologist Summary of Radiographic Findings: Mild pulmonary vascular congestion and interstitial edema less severe than on the January 14, 2018 exam. ED physician reviewed radiology report. - EKG 16:22 Cardiac Rate: Bradycardia - 58 bpm EKG Rhythm: Sinus Rhythm ST Segment: Normal Ectopy: None EKG Comparison: Other - As compared to 01/17/18, ST segments have now normalized. Summary of EKG Findings: An EKG at 16:22 reveals nml AV/IV CT, nml QTc, and LAD. Re-Evaluation - Re-Evaluation First Eval Re-Evaluation Time: 16:30 Change: Improved Comment: Patient received one nitroglycerin sublingual and her pain is relieved to a pain level of 2. BP 158/76 P 63. Second Eval Re-Evaluation Time: 17:10 Change: Unchanged Comment: Pt still has some pain across her chest and both arms. BP 130/82, HR 67 bpm. Will give more NTG. Chest Pain Course/Dx - Course Course Of Treatment: Pt is a 78 y/o female brought in by EMS who presents to the ED c/o CP. She has been out of her cardiac medications for the past 2 days. Today she felt worsening CP to a 10/10 in severity. The pain was described as similar to her prior MIs, and was located in the mid-right of her chest radiating to both arms. She also c/o nausea, SOB, and mild abdominal pain. She denies any CASTILLO or palpitations. Pt was given ASA and NTG by EMS, which relieved the pain down to a 3/10 in severity. A physical exam revealed bradycardia, rales in bilateral bases, dyspnea at rest, and trace LE edema. During the course pt was given NTG 0.4mg SL twice with relief of CP, and fluids. A CXR revealed mild pulmonary vascular congestion and interstitial edema less severe than on the January 14, 2018 exam. An EKG revealed nml AV/IV CT, nml QTc, and LAD. Troponin of 0.05. Final dx is unstable angina. Dr. Leiva accepts pt for admission , and pt is agreeable with this plan. - Chest Pain Differential Diagnosis/HQI/PQRI: Acute OK, ACS, Angina, CHF, Pulmonary Edema - Diagnoses Provider Diagnoses: Unstable angina, CHF (congestive heart failure) - Provider Notifications Discussed Care Of Patient With: Jenni Leiva Time Discussed With Above Provider: 17:18 Instructed by Provider To: Admit As Inpatient - Dr. Leiva accepts pt for admission. - Critical Care Time Critical Care Time: 30-74 min - 30 mins Discharge - Sign-Out/Discharge Documenting (check all that apply): Patient Departure - Admit - Discharge Plan Condition: Stable Disposition: ADMITTED TO [facility] - Billing Disposition and Condition Condition: STABLE Disposition: Admitted to [facility] - Attestation Statements Document Initiated by Scribe: Yes Documenting Scribe: Dot Tolbert Provider For Whom Scribe is Documenting (Include Credential): Marnie Wade MD Scribe Attestation: Dot Kaur, scribed for Marnie Wade MD on 08/08/18 at 2229. Scribe Documentation Reviewed: Yes Provider Attestation: The documentation as recorded by the Dot valentin accurately reflects the service I personally performed and the decisions made by , Marnie Wade MD
[2018-08-08 16:50] LABS: ABS Basophils 0 10^3/ul (0-0.2); ABS Eosinophils 0.3 10^3/ul (0-0.6); ABS Lymphocytes 1.6 10^3/ul (1.0-4.8); ABS Monocytes 0.4 10^3/ul (0-0.8); ABS Neutrophils 5.1 10^3/ul (1.5-7.7); ABS Nucleated RBC 0 10^3/ul; Eosinophil % 3.5 %; Hematocrit 36 % (35-47); Hemoglobin 11.9 g/dl (12.0-16.0); Lymphocyte % 21.1 %; Mean Corpuscular HGB Conc 33 g/dl (31-36); Mean Corpuscular Hemoglobin 30 pg (27-31); Mean Corpuscular Volume 90 fL (80-97); Mean Platelet Volume 8.7 fL (7.4-10.4); Nucleated Red Blood Cells % 0.1; Platelet Count 300 10^3/ul (150-450); Red Blood Count 4.02 10^6/ul (4.00-5.40); Red Cell Distribution Width 16 % (10.5-15); White Blood Count 7.4 10^3/ul (3.5-10.8)
[2018-08-08 17:06] LABS: EGFR Non-African American 62.8 (>60)
[2018-08-08 17:23] LABS: INR 0.99 (0.77-1.02)
[2018-08-08] MEDS ORDERED: Morphine VIAL* 4 MG/ML VIAL (1 ml vial) IV PRN (17:54)
[2018-08-08] MEDS ORDERED: Metoprolol Tartrate TAB* 25 MG PO SCH (18:00)
[2018-08-08] MEDS: Nitroglycerin TAB 0.4 MG* 0.4 MG TAB SL PRN ×2 (18:44→18:51)
[2018-08-08] MEDS: Aspirin 81 mg CHEW TAB* 81 MG TAB.CHEW PO SCH (19:44)
[2018-08-08] MEDS: Levothyroxine TAB* 25 MCG TAB PO SCH (19:48)
[2018-08-08] MEDS: Docusate CAP* 100 MG PO SCH (19:48)
[2018-08-08] MEDS: Atorvastatin* 80 MG TAB PO SCH (19:48)
[2018-08-08] MEDS: Isosorbide Mononitrate ER TAB* 60 MG PO SCH (19:48)
[2018-08-08] MEDS ORDERED: Nitroglycerin 2% OINT* 1 GM PAK TOPICAL ONE (19:57)
[2018-08-08] MEDS ORDERED: nitroGLYCERIN DRIP* 25,000 MCG/250 ML BTL IV SCH (20:00)
[2018-08-08] MEDS ORDERED: Nitroglycerin 2% OINT* 1 GM PAK ONE (20:01)
--- NOTE | 2018-08-08 20:18 | PN ---
Progress Note - Progress Note Date of Service: 08/08/18 Note: Paged for Chest pain and abdominal discomfort - similar to her symptoms when she has had an AK in the past. Ran out of her cardiac meds for two days due to not getting her social security check in time. Under a lot of stress. recently and she is trying to sell her house. EKG shows t wave flattening. Second troponin bumped. Patient transferring to ICU, NTG drip ordered, Heparin drip ordered. I contacted Dr. Harrison who is going to review her history and get back to me.
[2018-08-08] MEDS: Heparin VIAL(*) 5000 UNITS/ML VIAL (FIVE THOUSAND) IV PRN (21:05)
--- NOTE | 2018-08-08 22:15 | HP ---
CC: Dr. Caraballo; Dr. Sandoval, Cardiology, [place] * HISTORY AND PHYSICAL: DATE OF ADMISSION: 08/08/18 PRIMARY CARE PROVIDER: Dr. Caraballo. CHIEF COMPLAINT: Chest pain. HISTORY OF PRESENT ILLNESS: Michaelle Mendosa is a 78-year-old female with history of chronic angina with chest pains that occur on a daily basis, usually is exertional. The patient stated that she was waiting for the Social Security check to come in to be able to afford co-pays of her medications. Due to that, she had not picked them for the past 2 days. Today, she was on the way from visiting family member at a long term and way out, she started experiencing substernal chest pain, which she usually has when walking, but unfortunately she was out of her nitroglycerin and she had not taken her Imdur today. She started feeling worsening of "squeezing pain" in her chest and she called her son, who brought her into the emergency department. Here, she received 2 sublingual nitroglycerin and her pain resolved. Her initial troponin was 0.05 and her EKG did not show any acute changes. 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 In January of 2018, she suffered from non-ST elevation MN and that point the patient was transferred to [facility] to attempt to revascularize the lesion again, but as per the patient that was not successful again. She is continuing on maximal medical therapy with chronic pain with exertion. PAST MEDICAL HISTORY: 1. History of coronary artery bypass grafting in the past. 2. History of cardiac catheterization in September of 2016, which found to have left main stent with no restenosis and moderate-sized LAD with a stent in the LAD diagonal junction and the distal LAD fills into the CASTAÑEDA. 3. The patient had another cardiac catheterization in September of [address] Luciano was unable to cross the LAD into the diagonal to treat the lesion. 4. History of hypertension. 5. History of dyslipidemia. 6. History of chronic angina pain. 7. History of hypothyroidism. 8. Status post hysterectomy. MEDICATIONS: The patient is supposed to take at home include: 1. Aspirin 81 mg daily. 2. Imdur 60 mg daily. 3. Lipitor 80 mg daily. 4. Levothyroxine 25 mcg daily. 5. Metoprolol succinate 25 mg daily. 6. Lisinopril 5 mg daily. 7. Amlodipine 5 mg daily. 8. Nitroglycerin 0.4 mg sublingually on a p.r.n. basis. 9. Plavix 75 mg daily ALLERGIES: The patient is allergic to CAT DANDER. FAMILY HISTORY: Positive for mother with history of CHF, who at the age of 76. Brother with history of heart disease. SOCIAL HISTORY: The patient denies any tobacco, alcohol, or drug use. She is a as of April of 2018. She placed her house on the market to be sold. She also has a daughter with multiple sclerosis, who is currently in a long term. She stated that she had been very stressed out due to her family situation. REVIEW OF SYSTEMS: Positive for bilateral chronic lower extremity edema, right more than left usually. Positive for chronic exertional chest pain/angina. The patient stated that she takes usually 2 or 3 nitroglycerin on a weekly basis. The patient denies any recent illnesses. All the remaining 12 systems were reviewed with the patient and were otherwise negative. PHYSICAL EXAMINATION GENERAL: The patient is a very pleasant 78-year-old female, who is in no acute distress. Alert, awake, and oriented x3. VITAL SIGNS: Blood pressure of 137/82, heart rate of 71 and regular, respiratory rate 15, oxygen saturation 100% on 2 L of oxygen via nasal cannula and 96% on room air, temperature of 98.1. HEENT: Head: Atraumatic, normocephalic. Eyes: Pupils are equal, reactive to light and accommodation. Oropharynx is clear. Mucosa moist. NECK: Supple. No JVD. No bruits bilaterally. RESPIRATORY: Clear to auscultation bilaterally. CARDIOVASCULAR: Regular rate and rhythm. No murmur. ABDOMEN: Soft, nontender. Bowel sounds are present in all 4 quadrants. EXTREMITIES: There is nonpitting trace ankle edema, left more than right. There is no clubbing and no cyanosis. Pulses are +2 bilaterally. NEUROLOGIC: Speech is clear. Cranial nerves II through XII are grossly intact. Motor strength is 5/5 bilaterally. SKIN: On evaluation of the skin, no ecchymotic areas or rashes noted. DIAGNOSTIC STUDIES/LAB DATA: White blood cell count of 7.4, hemoglobin of 11.9 , hematocrit of 37, and platelets of 300. Sodium was 139, potassium 4.1, chloride 106, carbon dioxide 25, BUN 18, creatinine 0.87. Liver function tests unremarkable. Total CPK of 350. Troponin of 0.05. Brain natriuretic peptide was 265. TSH was 10.8 with total T4 of 6.9. The patient's portable chest x-ray read by the radiologist as "mild pulmonary vascular congestion and interstitial edema less severe than on the January 2018 exam." The patient's EKG showed sinus bradycardia with a heart rate of 58 beats per minute with negative T wave in leads III, flat T-wave in lead aVF, and Q waves in leads V1 to V3. Comparing with older EKGs from January of 2018, the patient's deep inverted T- wave depressions in the anteroseptal leads resolved today. ASSESSMENT AND PLAN: 1.A 78-year-old female with history of frequent angina type pain and stable exertional angina, who has coronary artery disease with lesion not amenable for intervention, presents after not taking her medications for 2 days with exertional chest pain. At this point, her troponin is 0.05 that apart from one instance in the past has been the lowest as has ever been. At this point, I suspect this is the patient's exacerbation of chronic angina pain and not an acute cardiac event. The patient is going to be placed on overnight observation on telemetry monitored bed. Her medications are going to be reinstituted. I will follow up her troponins and place the patient on telemetry monitored bed. 2.For DVT prophylaxis, the patient is going to be placed on heparin subcutaneously. 3.The patient's code status is full and her surrogate is her daughter, Rahel Fabian. 4.Hypothyroidism: pt's TSH is above 10, but she was unable to take her medications as prescribed in the recent past. will continued current home dose of Synthroid. TSH should be rechecked in 4-6 weeks. 5.Dyslipidemia: will continue current Lipitor dose TIME SPENT: Approximately 65 minutes was spent on admission of this patient, more than half of that time was spent [id number] with the patient during the interview and physical exam. [id number]/[facility] #: [id number] TOÑA
[2018-08-08] MEDS: Clopidogrel TAB* 75 MG PO SCH (22:17)
[2018-08-09 04:12] LABS: Urine Appearance Cloudy; Urine Blood 1+ (Negative); Urine Color Yellow; Urine Ketones Negative (Negative); Urine Protein Negative (Negative); Urine Red Blood Cell 1+(3-5/hpf) (Absent); Urine Specific Gravity 1.009 (1.010-1.030); Urine Urobilinogen Negative (Negative); Urine White Blood Cell 3+(>20/hpf) (Absent)
[2018-08-09] MEDS: Levothyroxine TAB* 25 MCG TAB PO SCH (06:16)
[2018-08-09 06:30] LABS: ABS Basophils 0.1 10^3/ul (0-0.2); ABS Eosinophils 0.4 10^3/ul (0-0.6); ABS Lymphocytes 2.5 10^3/ul (1.0-4.8); ABS Monocytes 0.5 10^3/ul (0-0.8); ABS Neutrophils 3.8 10^3/ul (1.5-7.7); ABS Nucleated RBC 0 10^3/ul; Eosinophil % 4.9 %; Hematocrit 32 % (35-47); Hemoglobin 10.5 g/dl (12.0-16.0); Lymphocyte % 34.5 %; Mean Corpuscular HGB Conc 33 g/dl (31-36); Mean Corpuscular Hemoglobin 30 pg (27-31); Mean Corpuscular Volume 90 fL (80-97); Mean Platelet Volume 8.6 fL (7.4-10.4); Nucleated Red Blood Cells % 0.1; Platelet Count 275 10^3/ul (150-450); Red Blood Count 3.54 10^6/ul (4.00-5.40); Red Cell Distribution Width 16 % (10.5-15); White Blood Count 7.2 10^3/ul (3.5-10.8)
[2018-08-09 06:47] LABS: EGFR Non-African American 56.1 (>60)
[2018-08-09] MEDS ORDERED: Perflutren Lipid Microsphere* 3 ML VIAL ONE (08:38)
[2018-08-09] MEDS: Heparin DRIP 25,000 UNITS(*) 25,000 UNITS/500 ML BAG IV SCH (09:20)
[2018-08-09] MEDS: Heparin VIAL(*) 5000 UNITS/ML VIAL (FIVE THOUSAND) IV PRN (09:20)
[2018-08-09] MEDS: amLODIPine TAB* 5 MG PO SCH (09:35)
[2018-08-09] MEDS: Atorvastatin* 80 MG TAB PO SCH (09:35)
[2018-08-09] MEDS: Aspirin 81 mg CHEW TAB* 81 MG TAB.CHEW PO SCH (09:35)
[2018-08-09] MEDS: Clopidogrel TAB* 75 MG PO SCH (09:36)
--- NOTE | 2018-08-09 09:36 | PN ---
Subjective Date of Service: 08/09/18 Interval History: Pt denies CP, feels "very well" Objective Active Medications: Amlodipine Besylate (Norvasc Tab*) 5 mg PO DAILY [facility] Aspirin (Aspirin 81 Mg Chew Tab*) 81 mg PO DAILY [facility] Last Admin: 08/08/18 19:44 Dose: Not Given Atorvastatin Calcium (Lipitor*) 80 mg PO DAILY [facility] Last Admin: 08/08/18 19:48 Dose: 80 mg Clopidogrel Bisulfate (Plavix Tab*) 75 mg PO DAILY [facility] Last Admin: 08/08/18 22:17 Dose: 75 mg Docusate Sodium (Colace Cap*) 100 mg PO BID [facility] Last Admin: 08/08/18 19:48 Dose: 100 mg Heparin Sodium (Porcine) (Heparin Vial(*)) 0 units IV .BOLUS PRN PRN Reason: PER HEPARIN DRIP PROTOCOL Last Admin: 08/09/18 09:20 Dose: 1,600 units Heparin Sodium/Dextrose (Heparin Drip 25,000 Units(*)) 25,000 units in 500 mls @ 0 mls/hr IV PER RATE [facility]; Protocol Last Admin: 08/09/18 09:20 Dose: 15 mls/hr Nitroglycerin/Dextrose (Nitroglycerin Drip*) 25,000 mcg in 250 mls @ 3 mls/hr IV .(Initial Rate) [facility]; Protocol Isosorbide Mononitrate (Imdur Er Tab*) 60 mg PO DAILY [facility] Last Admin: 08/08/18 19:48 Dose: 60 mg Levothyroxine Sodium (Synthroid Tab*) 25 mcg PO DAILY@0600 [facility] Last Admin: 08/09/18 06:16 Dose: 25 mcg Lisinopril (Prinivil Tab*) 5 mg PO DAILY [facility] Metoprolol Succinate (Toprol Xl Tab*) 25 mg PO DAILY [facility] Morphine Sulfate (Morphine Vial*) 1 mg IV Q4H PRN PRN Reason: PAIN - MILD Nitroglycerin (Nitroglycerin Tab 0.4 Mg*) 0.4 mg SL Q5M PRN PRN Reason: ANGINA Last Admin: 08/08/18 18:51 Dose: 0.4 mg Vital Signs - 8 hr 08/09/18 08/09/18 08/09/18 02:00 02:01 02:11 Temperature Pulse Rate 58 66 63 Respiratory 21 19 15 Rate Blood Pressure 84/41 88/48 (mmHg) O2 Sat by Pulse 93 92 92 Oximetry 08/09/18 08/09/18 08/09/18 03:00 03:01 03:46 Temperature 97.7 F Pulse Rate 57 57 Respiratory 25 23 Rate Blood Pressure 92/53 (mmHg) O2 Sat by Pulse 92 93 Oximetry 08/09/18 08/09/18 08/09/18 04:00 04:01 05:00 Temperature Pulse Rate 61 61 57 Respiratory 22 19 23 Rate Blood Pressure 92/48 94/47 (mmHg) O2 Sat by Pulse 93 95 92 Oximetry 08/09/18 08/09/18 08/09/18 05:01 06:00 06:01 Temperature Pulse Rate 55 61 67 Respiratory 21 12 25 Rate Blood Pressure 98/56 (mmHg) O2 Sat by Pulse 93 96 93 Oximetry 08/09/18 08/09/18 08/09/18 07:00 07:01 08:00 Temperature Pulse Rate 59 63 57 Respiratory 19 24 22 Rate Blood Pressure 104/59 106/57 (mmHg) O2 Sat by Pulse 93 92 92 Oximetry 08/09/18 08/09/18 08:01 08:36 Temperature 97.2 F Pulse Rate 54 Respiratory 22 Rate Blood Pressure (mmHg) O2 Sat by Pulse 92 Oximetry Oxygen Devices in Use Now: None Appearance: 78 yo F in nAD, aAOx3 Eyes: No Scleral Icterus, PERRLA Ears/Nose/Mouth/Throat: NL Teeth, Lips, Gums, Mucous Membranes Moist Neck: NL Appearance and Movements; NL JVP, Trachea Midline Respiratory: Symmetrical Chest Expansion and Respiratory Effort, Clear to Auscultation Cardiovascular: NL Sounds; No Murmurs; No JVD, RRR Abdominal: NL Sounds; No Tenderness; No Distention Lymphatic: No Cervical Adenopathy Extremities: No Clubbing, Cyanosis - trace ankle edema b/l Skin: No Rash or Ulcers, No Nodules or Sclerosis Neurological: Alert and Oriented x 3, NL Muscle Strength and Tone Result Diagrams: 08/09/18 06:00 08/09/18 06:00 Microbiology and Other Data: Microbiology 08/08/18 22:20 Nasal Screen MRSA (PCR) - Final Nasal Mrsa Not Detected Assess/Plan/Problems-Billing Assessment: Mrs. Mendosa is a 78yo F with PMH of CAD (s/p CABG and 5 stents), HTN, HLD, hypothyroidism, who presented to ED with c/o chest pain - Patient Problems (1) NSTEMI (non-ST elevated myocardial infarction) Comment: - Cardiology input appreciated - EKG at baseline, trop peaked at 1.1 - Chest pain free now. - D/c heparin drip, Aspirin, Plavix,Lipitor, and Metoprolol. - cont Imdur (2) DVT prophylaxis Comment: cont Heparin gtt started on 08/08/18 (3) HLD (hyperlipidemia) Comment: cont Lipitor (4) HTN (hypertension) Comment: - Controlled - continue metoprolol and lisinopril. (5) Hypothyroidism Comment: - TSH >10- patient is not compliant with Levothyroxine. - Continue levothyroxine at the same dose. Status and Disposition: obv changed to inpatient
[2018-08-09] MEDS: Lisinopril TAB* 5 MG PO SCH (09:38)
[2018-08-09] MEDS: Isosorbide Mononitrate ER TAB* 60 MG PO SCH (09:38)
[2018-08-09] MEDS: Metoprolol Succinate XL TAB* 25 MG PO SCH (09:38)
[2018-08-09] MEDS: Docusate CAP* 100 MG PO SCH ×2 (09:38→20:32)
--- NOTE | 2018-08-09 12:19 | ECHO ---
Patient: COTY ISBELL [facility] Rec#: [id number] : 1940 Date: 08/09/2018 Age: 78y Height: 152 cm / 59.8 in Weight: 64 kg / 141.1 lbs Sex: F BSA: 1.6 Room#: ICU 2 Admit Date#: 08/08/2018 Type: Inpatient Referring: Jenni Leiva MD Reading: Juan Harrison MD Gis Programmer: Ayanna Yadav RN RDCS CC: Brody Caraballo MD Transthoracic Echocardiogram Indication: Chest pain BP: 98/56 HR: 58 Rhythm: Bradycardia Findings History: CABG, MIs, PCI, HTN, HLD Technical Comments: The study quality is fair. Left Ventricle: The left ventricular chamber size is normal. Mild concentric left ventricular hypertrophy is observed. There is a prominent septal knuckle. There are multiple regional wall motion abnormalities. There is moderate to severely decreased left ventricular systolic function. The estimated ejection fraction is 30-35%. Abnormal left ventricular diastolic function is observed. The apical anterior, and apical inferior wall segments are hypokinetic (score 2). The apical lateral wall segment is akinetic (score 3). The apical septal wall segment is dyskinetic (score 4). Overall wallmotion score index is 2.75 Left Atrium: The left atrial chamber size is normal. Right Ventricle: The right ventricular cavity size is normal. The right ventricular global systolic function is normal. Right Atrium: The right atrial cavity size is normal. Aortic Valve: The aortic valve is trileaflet. The aortic valve leaflets are mildly thickened. There is aortic annular calcification. There is mild to moderate aortic regurgitation. There is no evidence of aortic stenosis. Mitral Valve: The mitral valve leaflets are mildly thickened. There is mild to moderate mitral regurgitation. There is no evidence of mitral stenosis. Tricuspid Valve: The tricuspid valve leaflets are normal. There is mild to moderate tricuspid regurgitation. There is evidence of mild pulmonary hypertension. There is no tricuspid stenosis. Pulmonic Valve: The pulmonic valve appears normal. There is a trace pulmonic regurgitation. There is no pulmonic stenosis. Pericardium: There is no significant pericardial effusion. Aorta: There is borderline dilatation of the ascending aorta. There is no dilatation of the aortic arch. The aortic root is normal in size. Pulmonary Artery: The main pulmonary artery is not well visualized. Venous: The inferior vena cava appears normal in size. There is a greater than 50% respiratory change in the inferior vena cava dimension. Contrast: Definity was used to optimize study. A total of 2.5 ml of diluted Definity was given IV to enhance imaging. Summary: There are no significant changes when compared to the previous study done on 01/14/18 Conclusions There are multiple regional wall motion abnormalities. There is moderate to severely decreased left ventricular systolic function. The estimated ejection fraction is 30-35%. The apical anterior, and apical inferior wall segments are hypokinetic (score 2). The apical lateral wall segment is akinetic (score 3). The apical septal wall segment is dyskinetic (score 4). The right ventricular global systolic function is normal. There is mild to moderate aortic regurgitation. There is no evidence of aortic stenosis. There is mild to moderate mitral regurgitation. There is mild to moderate tricuspid regurgitation. There is evidence of mild pulmonary hypertension. There is no significant pericardial effusion. There are no significant changes when compared to the previous study done on 01/14/18 Measurements Name Value Normal Range RVIDd (AP) 2D 3.1 cm (0.9 - 2.6) RVDdMajor (2D) 3 cm (2.2 - 4.4) RAd ISD 4CH 4.5 cm (3.4 - 4.9) RA (A4C)W 3.6 cm (2.9 - 4.6) IVSd (2D) 1.1 cm (0.6 - 1) LVPWd (2D) 1.1 cm (0.6 - 1) LVIDd (2D) 4.4 cm (3.6 - 5.4) LVIDs (2D) 3.7 cm - LV FS (2D) 16 % (25 - 45) Aortic Annulus 2 cm (1.4 - 2.6) Ao root diameter (2D) 2.8 cm (2.1 - 3.5) Ascending Ao 3.4 cm (2.1 - 3.4) Aortic arch 2.3 cm (1.8 - 3.4) LA dimension (AP) 2D 3.8 cm (2.3 - 3.8) LAd ISD 4CH 4.8 cm (2.9 - 5.3) LA ISD 4CH W 3.9 cm (2.5 - 4.5) Name Value Normal Range LA ESV BP (A/L) index 26.5 ml/m2 - Name Value Normal Range MV E-wave Vmax 1 m/sec - MV deceleration time 215 msec - MV A-wave Vmax 0.86 m/sec - MV E:A ratio 1.2 ratio - LV septal e' Vmax 0.04 m/sec - LV lateral e' Vmax 0.06 m/sec - LV E:e' septal ratio 25 ratio - LV E:e' lateral ratio 16.7 ratio - Name Value Normal Range AV Vmax 1.4 m/sec - AV VTI 36.5 cm - AV peak gradient 8 mmHg - AV mean gradient 5 mmHg - LVOT Vmax 0.78 m/sec - LVOT VTI 19.2 cm - LVOT peak gradient 2 mmHg - LVOT mean gradient 1 mmHg - AR PHT 400 msec - PIPER Vmax 0.5 m/sec - Name Value Normal Range TR Vmax 3.1 m/sec - TR peak gradient 38 mmHg - RAP 3 mmHg - RVSP 41 mmHg - IVC diameter 1.7 cm - Name Value Normal Range PV Vmax 0.71 m/sec - Wallmotion BAS Not Seen BA Not Seen BAL Not Seen LUISA Not Seen BI Not Seen BIS Not Seen MAS Not Seen MA Not Seen MAL Not Seen MIL Not Seen MO Not Seen MIS Not Seen Dyskinetic AA Hypokinetic AL Akinetic AI Hypokinetic APEX Akinetic
--- NOTE | 2018-08-10 00:12 | CONS ---
CC: Dr. Sandoval; Dr. Caraballo * CARDIOLOGY CONSULTATION: DATE OF CONSULT: 08/09/18 INDICATION FOR CONSULTATION: Coronary artery disease, acute coronary syndrome. HISTORY OF PRESENT ILLNESS: The patient is a 78-year-old female with a complex and long cardiac history of coronary artery disease. The patient has had coronary artery bypass surgery in the past. At that time, had a CASTAÑEDA to the LAD and a saphenous vein graft to her OM branch. At one point , her OM graft was found to be nonfunctional. The patient has undergone stenting to her proximal left main and into her left circumflex artery. She is also attempted stenting to her diagonal vessel through her CASTAÑEDA, retrograde to the LAD and to the diagonal vessel. This last attempt was in September 2016. At that time, during the attempt, there was a small dissection to the distal internal mammary artery just before the anastomosis to the LAD. This required a stent at that time. The procedure to try stent to diagonal vessel was abandoned. The patient was admitted to the hospital in January of this year with an acute coronary syndrome with peak troponin level of 6. At that time, the decision was not to pursue any other invasive therapies. The patient has been doing well since January. She has had no further episodes of chest pain. Unfortunately, the patient ran out of medications 2 days ago and then was going to visit her daughter in the residential when she started having chest pain. The patient's son called the ambulance and she was transported to [facility]. On arrival, she was still having chest pain. She was placed on heparin drip and an IV nitroglycerin drip. The patient 's EKG did not show an acute ST segment elevation HI and she was treated medically this morning. The patient is pain-free. The patient's EKG in the emergency room had nonspecific T wave changes, but no ST segment changes. PAST MEDICAL HISTORY: Significant for coronary artery disease as described above, history of hypothyroidism, hypertension, hyperlipidemia. PAST SURGICAL HISTORY: Coronary artery bypass surgery as described above. OUTPATIENT MEDICATIONS: 1. Aspirin 81 mg a day. 2. Atorvastatin 80 mg a day. 3. Lisinopril 2.5 mg b.i.d. 4. Metoprolol tartrate 50 mg b.i.d. 5. Brilinta 90 mg b.i.d. 6. Amlodipine 5 mg a day. 7. Isosorbide mononitrate 60 mg daily. 8. Levothyroxine 25 mcg a day. ALLERGIES: No known drug allergies. SOCIAL HISTORY: She is recently . She does have 4 children. She denies any tobacco or alcohol use. REVIEW OF SYSTEMS: Negative for fevers and chills. Negative for changes in bladder or bowel habits. Negative for changes in weight. Other 12-point review is unremarkable. PHYSICAL EXAM: Height is 5 feet, weight is 149 pounds. Temperature 97.5, heart rate is 68, blood pressure 104/58, oxygen saturation 98% on room air, respiratory rate is 18. Sclerae anicteric. Oropharynx is pink without erythema. Carotids are 2+ without bruits. JVD is normal. Thyroid is normal. Cardiac Exam: S1, S2 without any murmurs, rubs, or gallops. Lungs are clear to auscultation bilaterally. There is no dullness to percussion. Abdomen is soft, nontender, nondistended with normoactive bowel sounds. Extremities show no edema. She has 2+ pulses throughout. The patient is awake, alert, and oriented. She moves all 4 extremities equally. LABORATORY STUDIES: CBC within normal limits. Chemistry is within normal limits. Peak troponin level 1.1. AST and ALT are normal. TSH is 10.2. T4 is normal at 6.9. IMAGING: EKG demonstrates normal sinus rhythm and nonspecific ST-T wave abnormalities. Echocardiogram shows mildly reduced LV systolic function, ejection fraction of 40%, apical akinesis, distal anterior wall hypokinesis, unchanged from a previous echocardiograms. IMPRESSION: This is a 78-year-old female with a history of coronary artery disease as described above. The patient is admitted to the hospital with an acute coronary syndrome with elevated troponin levels and chest pain. The patient had been off her medications for 2 days prior to admission. The patient was on heparin and nitroglycerin. She was pain-free on my arrival this morning. RECOMMENDATIONS: Recommendation is to continue her outpatient medications. The patient should be on heparin for 48 hours and then discharged home. She has no further chest pain. If the patient does have further chest pain, I would recommend a stress test prior to going to catheterization lab to see if there are any areas of ischemia outside of the diagonal and LAD system. The patient will follow up as an outpatient with Dr. Sandoval. [id number]/[facility] #: [id number] [facility] HOSPITALRoberto
[2018-08-10] MEDS: Levothyroxine TAB* 25 MCG TAB PO SCH (05:16)
[2018-08-10 07:27] LABS: ABS Basophils 0 10^3/ul (0-0.2); ABS Eosinophils 0.4 10^3/ul (0-0.6); ABS Lymphocytes 2.5 10^3/ul (1.0-4.8); ABS Monocytes 0.5 10^3/ul (0-0.8); ABS Neutrophils 3.3 10^3/ul (1.5-7.7); ABS Nucleated RBC 0 10^3/ul; Eosinophil % 5.7 %; Hematocrit 33 % (35-47); Hemoglobin 10.8 g/dl (12.0-16.0); Lymphocyte % 37.5 %; Mean Corpuscular HGB Conc 33 g/dl (31-36); Mean Corpuscular Hemoglobin 30 pg (27-31); Mean Corpuscular Volume 90 fL (80-97); Mean Platelet Volume 9.1 fL (7.4-10.4); Nucleated Red Blood Cells % 0; Platelet Count 259 10^3/ul (150-450); Red Blood Count 3.63 10^6/ul (4.00-5.40); Red Cell Distribution Width 16 % (10.5-15); White Blood Count 6.6 10^3/ul (3.5-10.8)
[2018-08-10 07:40] LABS: EGFR Non-African American 59.6 (>60)
[2018-08-10] MEDS: Metoprolol Succinate XL TAB* 25 MG PO SCH (09:46)
[2018-08-10] MEDS: Lisinopril TAB* 5 MG PO SCH (09:46)
[2018-08-10] MEDS: amLODIPine TAB* 5 MG PO SCH (09:46)
[2018-08-10] MEDS: Clopidogrel TAB* 75 MG PO SCH (09:46)
[2018-08-10] MEDS: Atorvastatin* 80 MG TAB PO SCH (09:46)
[2018-08-10] MEDS: Isosorbide Mononitrate ER TAB* 60 MG PO SCH (09:46)
[2018-08-10] MEDS: Aspirin 81 mg CHEW TAB* 81 MG TAB.CHEW PO SCH (09:47)
[2018-08-10] MEDS: Docusate CAP* 100 MG PO SCH (09:47)
[2018-08-10] MEDS: Heparin DRIP 25,000 UNITS(*) 25,000 UNITS/500 ML BAG IV SCH (10:51)
[2018-08-10 16:41] VITALS: BP 92/46
--- NOTE | 2018-08-11 08:22 | DS ---
ADDENDUM NOW INCLUDED ON THIS REPORT CC: Dr. Caraballo; Dr. Harrison; Dr. Sandoval, Cardiology * DISCHARGE SUMMARY: DATE OF ADMISSION: 08/08/18 DATE OF DISCHARGE: 08/10/18 PRIMARY CARE PROVIDER: Dr. Caraballo. DISCHARGE DIAGNOSIS: Unstable angina in patient who did not take her medications for a couple of days prior to admission. SECONDARY DIAGNOSES: 1. History of elevated TSH in patient who was not entirely compliant with her medication and Synthroid treatment in the past. 2. History of coronary artery disease with coronary artery bypass grafting as well as recent cardiac catheterization in September of 2016, which found the left main stent with no stenosis but there was a lesion in the diagonal that was unable to be approached via cardiac catheterization for intervention. 3. History of hypertension. 4. Dyslipidemia. 5. Chronic angina with chronic exertional chest pain at baseline. 6. Hypothyroidism. 7. Hysterectomy. MEDICATIONS AT DISCHARGE: 1. Amlodipine 5 mg daily. 2. Aspirin 81 mg daily. 3. Lipitor 80 mg daily. 4. Plavix 75 mg daily. 5. Imdur ER 60 mg daily. 6. Levothyroxine 25 mcg daily. 7. Lisinopril 5 mg daily. 8. Metoprolol succinate 25 mg daily. 9. Nitroglycerin tablet 0.4 mg sublingually every 5 minutes for chest pain. LABORATORY DATA AND STUDIES PERFORMED DURING THE HOSPITAL STAY: On 08/10/18, sodium of 140, potassium of 3.9, chloride 109, carbon dioxide 25, BUN 20, creatinine 0.91, troponin peaked at 1.1 on 08/09/18. CBC: White blood cell count 6.6, hemoglobin 10.8, hematocrit of 33 and platelets of 259. Preliminary report of urine culture is positive for E. coli. Transthoracic echocardiogram obtained on 08/09/18, showed multiple regional wall motion abnormalities with moderately to severely decreased left ventricular systolic function with EF of 30% to 35%. There was apical anterior and apical inferior wall segmental hypokinesis. There was mild to moderate aortic regurgitation. No evidence of aortic stenosis, moderate tricuspid regurgitation, and moderate mitral regurgitation. There were no significant changes comparing with previous study done in January 2018. CONSULTATIONS DURING THE HOSPITAL STAY: Included Dr. Harrison from Cardiology. HOSPITALIZATION COURSE: Michaelle Mendosa is a 78-year-old female who has history of chronic angina with a lesion in her diagonal artery that was not amenable for intervention percutaneously who presented to the hospital complaining of chest pain/angina-like chest pain that developed after she did not take her medication for 2 days. She says that she waiting for the social security check to be able to fill out her medication and pay the co-pays. Unfortunately when she was walking from visiting her daughter at a group home, she developed substernal chest pain and she came into the ED for evaluation. Here her initial troponin was 0.05, but she peaked at 1.1 on 08/09/18. Dr. Harrison saw the patient in evaluation and recommended heparin drip. The patient was started on her remaining oral medications and she continued to have no chest pain throughout her hospital stay. By the time of discharge, she felt very well. She ambulated down the hallways approximately 400 feet without any exertional chest pain. She was hemodynamically stable. She was re-prescribed all of her medications at discharge and she is recommended to follow up with her primary care provider in approximately 4 to 7 days and her oil bay technician Dr. Sandoval in approximately 1 to 2 weeks. PHYSICAL EXAMINATION AT THE TIME OF DISCHARGE: Blood pressure of 113/50, heart rate of 60 and regular, respiratory rate 16, oxygen saturation 95% on room air, temperature 98.1. General: She is a very pleasant 78-year-old female who is in no acute distress, alert, awake and oriented x3. HEENT: Head atraumatic, normocephalic. Eyes: Pupils equal, round, and reactive to light and accommodation. Oropharynx clear. Mucosa moist. Neck: Supple. No JVD. No bruits bilaterally. Cardiovascular: Regular rate and rhythm. No murmur. Respiratory: Clear to auscultation bilaterally. Abdomen: Soft, nontender. Bowel sounds present in all 4 quadrants. Extremities: There is no edema. Pulses +2 bilaterally. No clubbing or cyanosis. On neuro evaluation, speech clear. Cranial nerves II through XII grossly intact. Motor strength is 5/5 bilaterally. 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 I suggested adding on folate and vitamin B12 levels to her morning lab work, which is going to be pending at the time of dictation. The patient is also recommended to follow up with a neurology referral as outpatient if it continues to be problematic. TIME SPENT: Approximately 40 minutes was spent on the patient's discharge. ADDENDUM: The patient's urine cultures were positive for over 100,000 colonies of E. coli. Sensitivities are pending. When patient was approached with specifics about her symptoms with urination, she stated that she has urinary frequency specifically at night, but no dysuria and no pain with urination and no hematuria. She stated that the nocturia had been chronic with her, but also thought that she had some urgency prior to coming to the hospital, but that resolved. Nevertheless, she prefers to be prescribed an antibiotic "in case" she needed one. She was prescribed Bactrim DS one tablet p.o. b.i.d. for a total of 3 days and that was sent to her pharmacy. [id number]/[facility] #: [id number]/[facility] #: [id number] [place]
--- NOTE | 2018-08-11 10:01 | DS ---
DISCHARGE SUMMARY: ADDENDUM: The patient's urine cultures were positive for over 100,000 colonies of E. coli. Sensitivities are pending. When patient was approached with specifics about her symptoms with urination, she stated that she has urinary frequency specifically at night, but no dysuria and no pain with urination and no hematuria. She stated that the nocturia had been chronic with her, but also thought that she had some urgency prior to coming to the hospital, but that resolved. Nevertheless, she prefers to be prescribed an antibiotic "in case" she needed one. She was prescribed Bactrim DS one tablet p.o. b.i.d. for a total of 3 days and that was sent to her pharmacy. [id number]/[facility] #: [id number] MTDRoberto
== END 2018-08-10 17:02 | disposition home or self-care (01) | DRG 282 ==
LOC: ED 15:55 → MEDTELE 17:40 → ICU 20:42 → OBSVTOIN 08-09 09:39 → MEDTELE 08-09 12:16
PROVIDERS: ADMIT Internal Medicine; ATTEND Internal Medicine
DX: I25.110 Atherosclerotic heart disease of native coronary artery with unstable angina pectoris (principal); I21.4 Non-ST elevation (NSTEMI) myocardial infarction; I11.9 Hypertensive heart disease without heart failure; E78.5 Hyperlipidemia, unspecified; E03.9 Hypothyroidism, unspecified; I25.118 Atherosclerotic heart disease of native coronary artery with other forms of angina pectoris; J30.81 Allergic rhinitis due to animal (cat) (dog) hair and dander; I25.2 Old myocardial infarction; Z79.02 Long term (current) use of antithrombotics/antiplatelets; Z79.82 Long term (current) use of aspirin; Z79.899 Other long term (current) drug therapy; Z82.49 Family history of ischemic heart disease and other diseases of the circulatory system; Z95.1 Presence of aortocoronary bypass graft; Z95.5 Presence of coronary angioplasty implant and graft
CPT/HCPCS: 36415; 71045; 80048; 80053; 81003; 81015; 82550; 82553; 82607; 82746; 83605; 83735; 83880; 84436; 84443; 84484; 85025; 85610; 85730; 87077; 87086; 87186; 87641; 93005; 93306; 99284; A9270-GY; C8929; G0378; J1644

== ENCOUNTER 2018-08-26 19:28 | Emergency (ER) | payer MEDICARE ==
--- NOTE | 2018-08-26 19:37 | ED ---
HPI Chest Pain - HPI Summary HPI Summary: 78 year old F brought in by ambulance to [facility] from [facility] complains of chest pain since 30 minutes ago. Symptoms aggravated by nothing. Symptoms alleviated by nothing. When picking up medication at [facility] 30 minutes ago, patient felt sudden diffuse onset of chest pain rated 10/10 in severity that did not radiate per EMS. EMS reports dizziness, shakiness, and chills. Patient reports inability to ambulate, vomiting x1. She denies bilateral LLE edema. Patient treated pain with NTG and 325 aspirin, both provided relief. Patient reports she had a heart catheterization done today 08/26/18 at [facility] on her right side. Patient had heart attack 1.5 weeks ago and was instructed to follow up with her primary care provider and with bulk tank driver, both at [place], who wanted her to have catheterization done. - History of Current Complaint Hx Obtained From: Patient, EMS Onset/Duration: Started Minutes Ago - 30, Still Present Initial Severity: Severe Pain Intensity: 10 Pain Scale Used: 0-10 Numeric Chest Pain Location: Diffuse Chest Pain Radiates: No Aggravating Factor(s): Nothing Alleviating Factor(s): Nothing Associated Signs and Symptoms: Positive: Other: - dizziness, shakiness, and chills, inability to ambulate, vomiting x1; NEGATIVE: bilateral LLE edema - Additional Pertinent History Primary Care Physician: [id number] - Allergy/Home Medications Allergies/Adverse Reactions: Allergies Allergy/AdvReac Type Severity Reaction Status Date / Time cat dander Allergy Intermediate Congestion Verified 08/26/18 20:01 Pkjoguh-Bem-Oes Reductase Allergy Intermediate Unknown Verified 08/26/18 20:02 Inhibitor Reaction Details PMH/Surg Hx/FS Hx/Imm Hx Previously Healthy: No Endocrine/Hematology History: Reports: Hx Thyroid Disease, Hx Anemia Denies: Hx Diabetes Cardiovascular History: Reports: Hx Angina, Hx Coronary Artery Disease, Hx Hypercholesterolemia, Hx Hypertension, Hx Myocardial Infarction - 2015, [address] Phelps, Hx Syncope, Other Cardiovascular Problems/ Disorders - Stents x5 Denies: Hx Congestive Heart Failure, Hx Pacemaker/ICD, Hx Peripheral Vascular Disease Respiratory History: Denies: Hx Asthma, Hx Chronic Obstructive Pulmonary Disease (COPD), Other Respiratory Problems/Disorders GI History: Reports: Hx Gall Bladder Disease, Hx Gastroesophageal Reflux Disease , Other GI Disorders - CONSTIPATION Denies: Hx Gastrointestinal Bleed, Hx Ulcer Musculoskeletal History: Reports: Hx Arthritis, Hx Back Problems - HIP PAIN TRAVELS TO LOWER SPINE, Other Musculoskeletal History - HIP PAIN Sensory History: Reports: Hx Contacts or Glasses Denies: Hx Hearing Aid Opthamlomology History: Reports: Hx Contacts or Glasses Neurological History: Reports: Hx Headaches, Other Neuro Impairments/Disorders - Numbness to RT thumb Denies: Hx Seizures, Hx Transient Ischemic Attacks (TIA) - Surgical History Surgery Procedure, Year, and Place: Triple Bypass 2007. Stents placed 2008 and 2014. Hysterectomy Hx Anesthesia Reactions: No Infectious Disease History: Denies: Hx Clostridium Difficile, Hx Hepatitis, Hx Human Immunodeficiency Virus (HIV), History Other Infectious Disease - Family History Known Family History: Positive: Cardiac Disease - bypass, CHF, father - [place], Other - [place] in daughter - Social History Alcohol Use: None Hx Substance Use: No Substance Use Type: Reports: None Hx Tobacco Use: No Smoking Status (MU): Never Smoked Tobacco Have You Smoked in the Last Year: No Review of Systems Positive: Chills Positive: Chest Pain Positive: Vomiting - x1 Negative: Edema - Bilateral LLE Neurological: Other - dizziness, shakiness, inability to ambulate All Other Systems Reviewed And Are Negative: Yes Physical Exam - Summary Physical Exam Summary: Appearance: Well-appearing, Well-nourished, lying in bed comfortably Skin: Warm, dry, no obvious rash Eyes: sclera anicteric, no conjunctival pallor ENT: mucous membranes moist, pharynx appears normal Neck: Supple, nontender Respiratory: Clear to auscultation, no signs of respiratory distress Cardiovascular: Normal S1, S2. No murmurs. Normal distal pulses in tibial and radial bilaterally. Abdomen: Soft, nontender, normal active bowel sounds present Musculoskeletal: Normal, Strength/ROM Intact Neurological: A&Ox3, awake and alert, mentation is normal, speech is fluent and appropriate Psychiatric: affect is normal, does not appear anxious or depressed Triage Information Reviewed: Yes Vital Signs Reviewed: Yes Diagnostics - Laboratory Result Diagrams: 08/26/18 20:05 08/26/18 20:05 Lab Statement: Any lab studies that have been ordered have been reviewed, and results considered in the medical decision making process. - EKG 194 Cardiac Rate: NL - 59 BPM EKG Rhythm: Sinus Rhythm Summary of EKG Findings: NSR at 59 BPM. Anteroseptal infarct. Chest Pain Course/Dx - Course Course Of Treatment: 78 year old F brought in by ambulance to [facility] from [facility] s complains of sudden diffuse onset of chest pain rated 10/10 in severity that did not radiate since 30 minutes ago. Patient reports she had a heart catheterization done today 08/26/18 at [facility] on her right side after having heart attack 1.5 weeks ago. Over the course of her ED stay, she has had 3 sequential troponins which have failed to show a significant rise. They have gone up, but only very slightly. In the interim, she has had no further symptomatology. A cardiac catheterization done within the past 24 hours reportedly did not show any remediable disease. I feel at this point the patient is stable for discharge, and I have asked that she contact her bulk tank driver later this morning. - Diagnoses Provider Diagnoses: Chest pain Discharge - Sign-Out/Discharge Documenting (check all that apply): Patient Departure - Discharge - Discharge Plan Disposition: HOME Patient Education Materials: Chest Pain (ED) Referrals: Cb Sandoval MD [Medical Doctor] - Additional Instructions: Call your bulk tank driver later this morning to let them know about the episode you experienced this evening. - Attestation Statements Document Initiated by Scribe: Yes Documenting Scribe: Alexandra Daugherty Provider For Whom Citlalyibmarcus is Documenting (Include Credential): Sanjeev Cook MD Scribe Attestation: I, Alexandra Daugherty, scribed for Sanjeev Cook MD on 08/27/18 at 0344. Status of Scribe Document: Ready
[2018-08-26 20:16] LABS: ABS Basophils 0.1 10^3/ul (0-0.2); ABS Eosinophils 0.4 10^3/ul (0-0.6); ABS Lymphocytes 1.9 10^3/ul (1.0-4.8); ABS Monocytes 0.6 10^3/ul (0-0.8); ABS Nucleated RBC 0 10^3/ul; Eosinophil % 4.9 %; Hematocrit 35 % (35-47); Hemoglobin 11.4 g/dl (12.0-16.0); Lymphocyte % 20.9 %; Mean Corpuscular HGB Conc 33 g/dl (31-36); Mean Corpuscular Hemoglobin 30 pg (27-31); Mean Corpuscular Volume 91 fL (80-97); Mean Platelet Volume 8.8 fL (7.4-10.4); Nucleated Red Blood Cells % 0.1; Platelet Count 276 10^3/ul (150-450); Red Blood Count 3.82 10^6/ul (4.00-5.40); Red Cell Distribution Width 16 % (10.5-15)
[2018-08-26 20:33] LABS: Albumin/Globulin Ratio 1.1 (1-3); BUN/Creatinine Ratio 23.3 (8-20); Calcium 9.3 mg/dL (8.6-10.3); EGFR Non-African American 51.7 (>60); Globulin 3.5 g/dL (2-4); Potassium 4.4 mmol/L (3.5-5.0); Total Bilirubin 0.4 mg/dL (0.2-1.0); Total Protein 7.5 g/dL (6.4-8.9)
[2018-08-27 03:40] VITALS: BP 112/56
== END 2018-08-27 02:49 | disposition home or self-care (01) ==
LOC: ED 19:28
DX: R07.89 Other chest pain (principal); R00.1 Bradycardia, unspecified; I25.119 Atherosclerotic heart disease of native coronary artery with unspecified angina pectoris; I10 Essential (primary) hypertension; Z95.1 Presence of aortocoronary bypass graft; Z95.5 Presence of coronary angioplasty implant and graft; Z82.49 Family history of ischemic heart disease and other diseases of the circulatory system
CPT/HCPCS: 36415; 80053; 84484; 85025; 93005; 99284

== ENCOUNTER 2019-04-13 14:18 | Emergency (ER) | payer MEDICARE ==
--- OUTSIDE RECORDS SUMMARY | 2019-04-13 14:25 | XMS REPORT | Continuity of Care Document ---
:1940 External Reference #:[id number] Author Name Ailyn Everett Care Team Providers Name Role Phone Rashmi SOTO, Brody Care Team Information Autocad Unavailable Rashmi SOTO, Brody Primary Care Physician Unavailable Payers Date Identification Numbers Payment Provider Subscriber Policy Number: [id number] Medicare [place] PayID: [id number] [address] [place] [address] Family History Date Family Member(s) Observation Comments General Age-Related Macular Degeneration General Glaucoma General Glasses General Heart Disease General H/O: Hypertension Father Glasses Father due to Heart Attack () Father Glaucoma Father Heart Disease Mother Glasses Mother due to Natural Causes () Mother Heart Disease Social History Type Date Description Comments Sex Unknown ETOH Use Denies alcohol use Tobacco Use Start: Unknown Patient has never smoked Smoking Status Reviewed: 03/24/19 Patient has never smoked Allergies, Adverse Reactions, Alerts Description No Known Drug Allergies Medications Active Medications SIG Qnty Indications Ordering Provider Date Amlodipine Besylate Unknown 5mg Tablets Clopidogrel Bisulfate Take 1 Tablet By Unknown Mouth Every Day 75mg Tablets Metoprolol Succinate Take 1 Tablet By Unknown ER Mouth Every Day 25mg Tablets ER 24HR Lisinopril Take 1 Tablet By Unknown 5mg Tablets Mouth Every Day Isosorbide Mononitrate Take 1 Tablet By Unknown ER Mouth Every Day 120mg Tablets ER 24HR Aspirin 81 Low Dose Unknown 81mg Chewtabs Plan of Treatment 03/24/2019 - Joe Fonseca, ODH25.813 Combined forms of age-related cataract, bilateralFollow up:A-scans Ou with dr dominiqueH52.4 PresbyopiaFollow up:A-scans Ou with dr dominique
[2019-04-13 14:40] VITALS: BP 139/61
--- NOTE | 2019-04-13 15:18 | UC ---
Throat Pain/Nasal Mariano HPI - HPI Summary HPI Summary: 79 yo female presents with left upper tooth pain for the last 4 days. She tells me that about 4 days ago she developed some left upper tooth pain that has progressed to radiating to her left ear and jaw. She has increased pain with chewing and eating. She has not taken anything OTC for her discomfort. She does not see a dentist. Denies trauma to the area, fever, chills. - History of Current Complaint Chief Complaint: UCDentalProblem Stated Complaint: MOUTH PAIN Time Seen by Provider: 04/13/19 15:17 Hx Obtained From: Patient Onset/Duration: Gradual Onset Severity: Moderate Pain Intensity: 8 Pain Scale Used: 0-10 Numeric - Allergies/Home Medications Allergies/Adverse Reactions: Allergies Allergy/AdvReac Type Severity Reaction Status Date / Time cat dander Allergy Intermediate Congestion Verified 04/13/19 14:40 Oghnhsj-Kdf-Loe Reductase Allergy Intermediate Unknown Verified 04/13/19 14:40 Inhibitor Reaction Details lactose Allergy GI Upset Verified 04/13/19 14:40 PMH/Surg Hx/FS Hx/Imm Hx - Additional Past Medical History Additional PMH: CHF Endocrine History: Hypothyroidism, Dyslipidemia Cardiovascular History: Myocardial Infarction - Surgical History Surgical History: Yes Surgery Procedure, Year, and Place: Triple Bypass 2007. Stents placed 2008 and 2014. Hysterectomy - Family History Known Family History: Positive: Cardiac Disease - bypass, CHF, father - [place], Other - [place] in daughter - Social History Occupation: Retired Alcohol Use: None Substance Use Type: None Smoking Status (MU): Never Smoked Tobacco Have You Smoked in the Last Year: No - Immunization History Most Recent Influenza Vaccination: 2017 Most Recent Tetanus Shot: unknown Most Recent Pneumonia Vaccination: none Review of Systems All Other Systems Reviewed And Are Negative: Yes Constitutional: Positive: Negative Skin: Positive: Negative Eyes: Positive: Negative ENT: Positive: Dental Pain Respiratory: Positive: Negative Cardiovascular: Positive: Negative Gastrointestinal: Positive: Negative Neurovascular: Positive: Negative Neurological: Positive: Negative Psychological: Positive: Negative Physical Exam - Summary Physical Exam Summary: GENERAL: NAD. WDWN. No pain distress. SKIN: No rashes, sores, lesions, or open wounds. HEENT: Head: AT/NC Eyes: EOM intact. Conjunctiva clear without inflammation or discharge. Ears: Hearing grossly normal. TMs intact, no bulging, erythema, or edema. Nose: Nasal mucosa pink and moist. NTTP maxillary and frontal sinus. Throat: Posterior oropharynx without exudates, erythema, or tonsillar enlargement. Uvula midline. NECK: Supple. Nontender. No lymphadenopathy. CHEST: CTAB. No r/r/w. No accessory muscle use. Breathing comfortably and in no distress. CV: RRR. Without m/r/g. Pulses intact. Cap refill <2seconds NEURO: Alert. PSYCH: Age appropriate behavior. Triage Information Reviewed: Yes Vital Signs: Initial Vital Signs Temp 99.4 F 04/13/19 14:36 Pulse 65 04/13/19 14:36 Resp 18 04/13/19 14:36 BP 139/61 04/13/19 14:36 Pulse Ox 96 04/13/19 14:36 Vital Signs Reviewed: Yes Dental: Positive: Percussion Tenderness @ - Tooth #15, Dental Fracture @ - Tooth #15, Abscess @ - Tooth #15 Throat Pain/Nasal Course/Dx - Course Course Of Treatment: Tooth #15 abscess. - Differential Dx/Diagnosis Provider Diagnosis: Dental abscess Discharge - Sign-Out/Discharge Documenting (check all that apply): Patient Departure All imaging exams completed and their final reports reviewed: No Studies - Discharge Plan Condition: Stable Disposition: HOME Prescriptions: Amoxicillin/Clavulanate TAB* [Augmentin TAB 875*] 875 mg PO BID #14 tab Patient Education Materials: Dental Abscess (ED) Referrals: Brody Caraballo MD [Primary Care Provider] - Additional Instructions: If you develop a fever, shortness of breath, chest pain, new or worsening symptoms - please call your PCP or go to the ED immediately. Your blood pressure was slightly elevated at todays visit. Please see your primary provider within 4 weeks for recheck and re-evaluation. - Billing Disposition and Condition Condition: STABLE Disposition: Home - Attestation Statements Provider Attestation: I am administratively signing this document. I was available for consultation for this patient. I did not evaluate the patient, did not have a doctor/patient relationship with the patient, or participate in any medical decision making or disposition decisions unless I am specifically named in the chart as having consulted on the patient. If I have consulted on the patient, please see my own ED note on the patient encounter. Olena Nugent MD
== END 2019-04-13 15:30 | disposition home or self-care (01) ==
LOC: UCEAST 14:18
DX: K04.7 Periapical abscess without sinus (principal); E78.5 Hyperlipidemia, unspecified; E03.9 Hypothyroidism, unspecified; I25.2 Old myocardial infarction
CPT/HCPCS: 99212; G0463

== ENCOUNTER 2019-05-23 09:59 | Day surgery (SDC) | payer MEDICARE ==
[~2019-05-23 09:59] MED LIST: Acetaminophen TAB* 325 MG PO PRN; Buffered Lidocaine 1% SYRIN* 1 ML/SYRINGE INTRADERM ONE
[2019-05-23] MEDS ORDERED: Midazolam* 1 MG/ML 2 ML VIAL (2 MG) ONE (11:29)
[2019-05-23] MEDS ORDERED: fentaNYL* 50 MCG/ML 2 ML VIAL (100 MCG VIAL) ONE (11:29)
[2019-05-23 13:48] VITALS: BP 141/55
[2019-05-23] MEDS ORDERED: Neomycin/Polymy/Dex OPHTH.OIN* 3.5 GM ONE (14:17)
[2019-05-23] MEDS ORDERED: Tetracaine 0.5% OPTH.SOL 4 ML* 1 DROP BTL ONE (14:17)
[2019-05-23] MEDS ORDERED: Phenylephrine OPHTH SOL 2.5%* 2 ML ONE (14:17)
[2019-05-23] MEDS ORDERED: Cyclopentolate 1% OPTH.SOL* 2 ML BTL ONE (14:17)
[2019-05-23] MEDS ORDERED: Lidocaine 1% MPF ** 5 ML VIAL ONE (14:17)
[2019-05-23] MEDS ORDERED: Ketorolac 0.5% OPHTH (NF) 0.5 % 5 ML BTL ONE (14:17)
[2019-05-23] MEDS ORDERED: Tropicamide 1% OPTH.SOL* BTL ONE (14:17)
--- NOTE | 2019-05-23 15:55 | OP ---
DATE OF OPERATION: 05/23/19 [facility] DATE OF : 38 SURGEON: Dr. Dioni Horn. SUBSORTER: None. ANESTHESIA: Topical with intravenous sedation. PRE-OP DIAGNOSIS: Cataract, right eye. POST-OP DIAGNOSIS: Cataract, right eye. OPERATIVE PROCEDURE: Phacoemulsification and cataract extraction with posterior chamber intraocular lens implant, right eye. COMPLICATIONS: None. BLOOD LOSS: None. DESCRIPTION OF PROCEDURE: The patient was brought to the operating room and received a small amount of intravenous sedation. A drop of tetracaine was placed in her right eye. She was prepped and draped in the usual sterile fashion for ophthalmic surgery and attention was directed to the right eye where a speculum was placed. A paracentesis was created at the 11 o'clock position and 0.1 cc of 1 percent preservative-free lidocaine was injected into the anterior chamber followed by DisCoVisc. The eye was digitally stabilized while a 2.75 mm keratome was used to create a triplanar clear corneal incision at the 9 o'clock position. A continuous curvilinear capsulorrhexis was created with a cystotome and Utrata forceps. BSS on a cannula was used to hydrodissect the lens from the capsule. Phacoemulsification was performed in a divide-and- conquer technique to create four fragments which were removed. Residual cortical material was removed with irrigation and aspiration. DisCoVisc was used to inflate the capsular bag and an AU00T0 23.0 diopter lens was folded and inserted into the capsular bag. DisCoVisc was removed using irrigation and aspiration. BSS on a cannula was used to hydrate the corneal stroma and seal the wound. At the end of the case the pupil was round and the lens was centered. The eye was of normal pressure and the wound was water tight. The speculum was removed and topical Maxitrol ointment was placed on the surface of the eye. The eye was closed, patched and shielded and the patient was sent to the recovery room in stable condition with post operative instructions and follow-up appointment given. [id number]/CPS #: [id number] TOÑA
== END 2019-05-23 12:46 | disposition home or self-care (01) ==
LOC: OREAST 09:59
PROVIDERS: ATTEND Ophthalmology
DX: H25.11 Age-related nuclear cataract, right eye (principal); I25.10 Atherosclerotic heart disease of native coronary artery without angina pectoris; I25.2 Old myocardial infarction; Z95.5 Presence of coronary angioplasty implant and graft; Z95.1 Presence of aortocoronary bypass graft; E78.5 Hyperlipidemia, unspecified; I10 Essential (primary) hypertension; K21.9 Gastro-esophageal reflux disease without esophagitis; E03.9 Hypothyroidism, unspecified; Z79.01 Long term (current) use of anticoagulants; F32.9 Major depressive disorder, single episode, unspecified
CPT/HCPCS: A9270-GY; J2250; J3010; V2632

== ENCOUNTER 2019-05-30 09:47 | Day surgery (SDC) | payer MEDICARE ==
[~2019-05-30 09:47] MED LIST changes: -Acetaminophen TAB* 325 MG PO PRN
[2019-05-30] MEDS ORDERED: Neomycin/Polymy/Dex OPHTH.OIN* 3.5 GM ONE (10:26)
[2019-05-30] MEDS ORDERED: Tetracaine 0.5% OPTH.SOL 4 ML* 1 DROP BTL ONE (10:26)
[2019-05-30] MEDS ORDERED: Tropicamide 1% OPTH.SOL* BTL ONE (10:26)
[2019-05-30] MEDS ORDERED: Lidocaine 1% MPF ** 5 ML VIAL ONE (10:26)
[2019-05-30] MEDS ORDERED: Phenylephrine OPHTH SOL 2.5%* 2 ML ONE (10:26)
[2019-05-30] MEDS ORDERED: Cyclopentolate 1% OPTH.SOL* 2 ML BTL ONE (10:26)
[2019-05-30] MEDS ORDERED: Ketorolac 0.5% OPHTH (NF) 0.5 % 5 ML BTL ONE (10:26)
[2019-05-30] MEDS ORDERED: Midazolam* 1 MG/ML 2 ML VIAL (2 MG) ONE (11:49)
[2019-05-30] MEDS ORDERED: Propofol* 10 MG/ML 20 ML BTL ONE (11:57)
[2019-05-30] MEDS ORDERED: Lidocaine 2% PF * 5 ML VIAL ONE (11:57)
[2019-05-30] MEDS ORDERED: fentaNYL* 50 MCG/ML 2 ML VIAL (100 MCG VIAL) ONE (12:10)
[2019-05-30 12:34] VITALS: BP 116/58
[2019-05-30] MEDS ORDERED: Phenylephr/Ketorolac 1%/0.3% OPH DROP BTL ONE (16:28)
[2019-05-30] MEDS ORDERED: Carbachol 0.01% OPH.SOL* 1.5 ML OPHTH.SOLN ONE (16:28)
--- NOTE | 2019-05-30 21:08 | OP ---
DATE OF OPERATION: 05/30/19 - [facility] DATE OF : 38 SURGEON: Dr. Dioni Horn. CREW ATTENDANT: None. ANESTHESIA: Topical with intravenous sedation. PRE-OP DIAGNOSIS: Cataract, left eye, small pupil. POST-OP DIAGNOSIS: Cataract, left eye, small pupil. OPERATIVE PROCEDURE: Phacoemulsification and cataract extraction with posterior chamber lens implant, left eye. COMPLICATIONS: None. BLOOD LOSS: None. DESCRIPTION OF PROCEDURE: The patient was brought to the operating room and received intravenous sedation. A drop of tetracaine was placed in her left eye. The patient was prepped and draped in the usual sterile fashion for ophthalmic surgery and attention was directed to the left eye where a speculum was placed. The patient was feeling discomfort from the speculum and so supplemental intravenous sedation was given. A paracentesis was created at the 5 o'clock position and 0.1 cc of 1 % preservative-free lidocaine was injected followed by DisCoVisc. The eye was digitally stabilized while a 2.75 mm keratome was used to create a triplanar clear corneal incision at the 3 o'clock position. The patient was feeling discomfort and still moving during this part of the case, making the Keratome incision slightly irregular. was added to the irrigating solution. BSS on a cannula was used to hydrodissect the lens from the capsule. The iris began to flop through the wound repeatedly. Further DisCoVisc was placed in the anterior chamber and ultimately a Malyugin ring was placed to secure the iris. Phacoemulsification was performed in a wrblzv-eya-atwauvh technique to create 4 fragments which were removed. Residual cortical material was removed with irrigation and aspiration. The capsule bag was polished. An AU00T0 23.0 diopter lens was inserted into the capsular bag. Viscoelastic was removed using irrigation and aspiration from posterior to the lens. Supplemental DisCoVisc was placed anterior to the lens, deep in the anterior chamber. The Malyugin ring was removed atraumatically. The remainder of the viscoelastic was removed with irrigation and aspiration. Miostat was introduced into the anterior chamber to help contract the iris away from the wound. BSS on a cannula was used to hydrate the corneal stroma and effectively seal the wound. At the end of the case, the pupil was slightly irregular. The lens was centered and stable. The eye pressure appeared normal and the wound was water tight. The speculum was removed and topical Maxitrol ointment was placed on the surface of the eye. The eye was closed, patched, and shielded, and the patient was sent to the recovery room in stable condition with postop instructions and a followup appointment given. [id number]/CPS #: [id number] MTDD
== END 2019-05-30 12:45 | disposition home or self-care (01) ==
LOC: OREAST 09:47
PROVIDERS: ATTEND Ophthalmology
DX: H25.12 Age-related nuclear cataract, left eye (principal); H21.562 Pupillary abnormality, left eye; E78.00 Pure hypercholesterolemia, unspecified; E03.9 Hypothyroidism, unspecified; Z95.1 Presence of aortocoronary bypass graft; Z79.01 Long term (current) use of anticoagulants; I10 Essential (primary) hypertension; Z95.5 Presence of coronary angioplasty implant and graft; I25.2 Old myocardial infarction; I25.10 Atherosclerotic heart disease of native coronary artery without angina pectoris
CPT/HCPCS: A9270-GY; C9447; J2250; J2704; J3010; V2632

== ENCOUNTER 2021-10-25 17:42 | Inpatient (IN) ==
[2021-10-25 19:15] LABS: ALT 11 U/L (7-52); Albumin 3.9 g/dL (3.2-5.2); Albumin/Globulin Ratio 1.1 (1-3); Alkaline Phosphatase 66 U/L (35-149); Blood Urea Nitrogen 40 mg/dL (6-24); CO2 Carbon Dioxide 22 mmol/L (22-32); Calcium 9.1 mg/dL (8.6-10.3); Chloride 101 mmol/L (101-111); Globulin 3.6 g/dL (2-4); Glucose 87 mg/dL (70-100); Sodium 133 mmol/L (135-145); Total Protein 7.5 g/dL (6.4-8.9); eGFR CKD-EPI 33.5 (>60)
[2021-10-25 19:24] LABS: RBC Morphology Normal (Normal)
[2021-10-25 19:25] LABS: ABS Lymphocytes 0.8 10^3/ul (1.0-4.8); ABS Monocytes 0.6 10^3/ul (0-0.8); ABS Neutrophils 4.9 10^3/ul (1.5-7.7); Eosinophil % 0.1 %; Hematocrit 39 % (35-47); Hemoglobin 13.5 g/dL (12.0-16.0); Lymphocyte % 12.1 %; Mean Corpuscular HGB Conc 35 g/dL (31-36); Mean Corpuscular Hemoglobin 32 pg (27-31); Mean Corpuscular Volume 93 fL (80-97); Platelet Count Platelets clumped. 10^3/uL (150-450); Red Blood Count 4.17 10^6 /uL (3.70-4.87); Red Cell Distribution Width 14 % (10-15); White Blood Count 6.3 10^3/uL (3.5-10.8)
[2021-10-25 19:35] LABS: Troponin I 0.03 ng/mL (<0.03)
[2021-10-25 19:36] LABS: Anion Gap 10 mmol/L (2-11)
[2021-10-25] MEDS ORDERED: Iodixanol (CONTRAST) 320 MG/ML 100 ML SDV IV ONE (19:55)
[2021-10-25] MEDS ORDERED: Heparin DRIP 25,000 UNITS BAG 25,000 UNITS/500 ML BAG IV SCH (21:30)
[2021-10-25] MEDS ORDERED: Heparin 5000 UNITS/ML 1 mL VIAL IV SCH (22:00)
[2021-10-25 22:02] LABS: Potassium Redraw 4.3 mmol/L (3.5-5.0)
[2021-10-25] MEDS ORDERED: Enoxaparin 80 MG/0.8 ML SYR SUBCUT ONE (22:03)
[2021-10-25 22:49] LABS: Troponin I 0.03 ng/mL (<0.03)
[2021-10-26 04:00] LABS: Urine Appearance Turbid; Urine Bilirubin Negative (Negative); Urine Blood 2+ (Negative); Urine Color Yellow; Urine Glucose Negative (Negative); Urine Ketones Trace (Negative); Urine Nitrite Positive (Negative); Urine Protein 1+(30 mg/dL) (Negative); Urine Specific Gravity 1.031 (1.002-1.030); Urine Urobilinogen Negative (Negative)
[2021-10-26 04:07] LABS: Troponin I 0.03 ng/mL (<0.03)
[2021-10-26 04:10] LABS: Urine Bacteria 1+ (Absent); Urine Red Blood Cell 3+(>10/hpf) (Absent); Urine Squamous Epithelial Cell Present (Absent); Urine White Blood Cell 3+(>20/hpf) (Absent)
[2021-10-26] MEDS ORDERED: NS 0.9% 500 ml BAG 500 ML IV SCH (05:00)
[2021-10-26] MEDS: cefTRIAXone 1 gm/50 mL NS BAG 1 GM/50 ML BAG IVPB SCH (05:13)
[2021-10-26] MEDS ORDERED: NS 0.9% 1000 ml BAG 500 ML IV ONE (05:45)
[2021-10-26] MEDS: Isosorbide Mononit ER 60mg TAB PO SCH (09:42)
[2021-10-26] MEDS ORDERED: Remdesivir 100 mg Vial 200 MG in NS 0.9% 250 ml 210 ML IV ONE (11:05)
[2021-10-26 12:13] LABS: INR 1.29 (0.86-1.15)
[2021-10-26] MEDS ORDERED: Enoxaparin 80 MG/0.8 ML SYR SUBCUT SCH (21:00)
[2021-10-27 06:46] LABS: Hematocrit 35 % (35-47); Hemoglobin 12.1 g/dL (12.0-16.0); Mean Corpuscular HGB Conc 35 g/dL (31-36); Mean Corpuscular Hemoglobin 32 pg (27-31); Mean Corpuscular Volume 93 fL (80-97); Mean Platelet Volume 9.7 fL (7.4-10.4); Platelet Count 197 10^3/uL (150-450); Red Blood Count 3.78 10^6 /uL (3.70-4.87); Red Cell Distribution Width 14 % (10-15); White Blood Count 2.7 10^3/uL (3.5-10.8)
[2021-10-27 06:47] LABS: ABS Lymphocytes 0.9 10^3/ul (1.0-4.8); ABS Monocytes 0.3 10^3/ul (0-0.8); ABS Neutrophils 1.6 10^3/ul (1.5-7.7); Lymphocyte % 32.3 %; Nucleated Red Blood Cells % 0.1
[2021-10-27 06:49] LABS: INR 1.25 (0.86-1.15)
[2021-10-27 07:01] LABS: Albumin 3.3 g/dL (3.2-5.2); Albumin/Globulin Ratio 1.1 (1-3); Calcium 8.7 mg/dL (8.6-10.3); Globulin 3.1 g/dL (2-4); Potassium 4.6 mmol/L (3.5-5.0); Total Bilirubin 0.5 mg/dL (0.2-1.0); Total Protein 6.4 g/dL (6.4-8.9); eGFR CKD-EPI 36.3 (>60)
[2021-10-27] MEDS: Isosorbide Mononit ER 60mg TAB PO SCH (08:32)
[2021-10-27] MEDS: cefTRIAXone 1 gm/50 mL NS BAG 1 GM/50 ML BAG IVPB SCH (08:34)
[2021-10-27] MEDS: Remdesivir 100 mg Vial 100 MG in NS 0.9% 250 ml 230 ML IV SCH (10:09)
[2021-10-28 06:12] LABS: INR 1.61 (0.86-1.15)
[2021-10-28 06:25] LABS: Albumin 3.4 g/dL (3.2-5.2); Albumin/Globulin Ratio 1.1 (1-3); C Reactive Protein 47.81 mg/L (<8.01); Calcium 8.6 mg/dL (8.6-10.3); Potassium 4.3 mmol/L (3.5-5.0); Total Bilirubin 0.5 mg/dL (0.2-1.0); Total Protein 6.4 g/dL (6.4-8.9); eGFR CKD-EPI 40.7 (>60)
[2021-10-28] MEDS: cefTRIAXone 1 gm/50 mL NS BAG 1 GM/50 ML BAG IVPB SCH (08:40)
[2021-10-28] MEDS: Isosorbide Mononit ER 60mg TAB PO SCH (08:47)
[2021-10-28] MEDS: Remdesivir 100 mg Vial 100 MG in NS 0.9% 250 ml 230 ML IV SCH (10:58)
[2021-10-28] MEDS ORDERED: Flu vaccine *QUAD* 2021-22* 0.5 ML SYRINGE IM ONE (16:00)
[2021-10-28] MEDS ORDERED: Pneumococcal Vac 23-Polyvalent IM ONE (16:00)
[2021-10-28 16:15] VITALS: BP 95/62
== END 2021-10-28 16:35 | disposition home or self-care (01) | DRG 177 ==
LOC: ED 17:42 → EDHOLD 10-26 02:09 → SUATTDRO 10-26 02:09 → MED 10-26 10:23
PROVIDERS: ADMIT Internal Medicine; ATTEND Internal Medicine

== ENCOUNTER 2021-11-01 22:39 | Inpatient (IN) ==
[2021-11-01 23:19] LABS: ABS Eosinophils 0.1 10^3/ul (0-0.6); ABS Lymphocytes 1.6 10^3/ul (1.0-4.8); ABS Monocytes 1.1 10^3/ul (0-0.8); ABS Neutrophils 6.8 10^3/ul (1.5-7.7); Eosinophil % 0.9 %; Hematocrit 37 % (35-47); Hemoglobin 12.3 g/dL (12.0-16.0); Lymphocyte % 16.3 %; Mean Corpuscular HGB Conc 33 g/dL (31-36); Mean Corpuscular Hemoglobin 31 pg (27-31); Mean Corpuscular Volume 93 fL (80-97); Mean Platelet Volume 10.3 fL (7.4-10.4); Platelet Count 297 10^3/uL (150-450); Red Blood Count 4.01 10^6 /uL (3.70-4.87); Red Cell Distribution Width 14 % (10-15); White Blood Count 9.6 10^3/uL (3.5-10.8)
[2021-11-01 23:35] LABS: ALT 22 U/L (7-52); AST 29 U/L (13-39); Albumin 3.5 g/dL (3.2-5.2); Albumin/Globulin Ratio 1.3 (1-3); Alkaline Phosphatase 78 U/L (35-149); Anion Gap 9 mmol/L (2-11); Blood Urea Nitrogen 25 mg/dL (6-24); CO2 Carbon Dioxide 24 mmol/L (22-32); Calcium 8.6 mg/dL (8.6-10.3); Chloride 105 mmol/L (101-111); Creatine Kinase 53 U/L (10-223); Globulin 2.8 g/dL (2-4); Glucose 128 mg/dL (70-100); Potassium 4.1 mmol/L (3.5-5.0); Sodium 138 mmol/L (135-145); Total Protein 6.3 g/dL (6.4-8.9); eGFR CKD-EPI 48.6 (>60)
[2021-11-01] MEDS ORDERED: Iodixanol (CONTRAST) 320 MG/ML 100 ML SDV IV ONE (23:39)
[2021-11-01 23:54] LABS: Troponin I 0.03 ng/mL (<0.03)
[2021-11-02 02:26] LABS: Troponin I 0.29 ng/mL (<0.03)
[2021-11-02] MEDS ORDERED: Lactated Ringers 1000 ml BAG 1,000 ML IV ONE ×2 (03:23→05:26)
[2021-11-02] MEDS ORDERED: Lactated Ringers 1000 ml BAG 500 ML IV ONE (03:24)
[2021-11-02 05:34] LABS: Troponin I 0.82 ng/mL (<0.03)
[2021-11-02] MEDS ORDERED: Heparin 5000 UNITS/ML 1 mL VIAL IV SCH (06:00)
[2021-11-02 06:25] LABS: ABS Eosinophils 0.1 10^3/ul (0-0.6); ABS Lymphocytes 1.7 10^3/ul (1.0-4.8); ABS Monocytes 1.1 10^3/ul (0-0.8); ABS Neutrophils 5.8 10^3/ul (1.5-7.7); Eosinophil % 0.7 %; Hematocrit 32 % (35-47); Hemoglobin 10.6 g/dL (12.0-16.0); Mean Corpuscular HGB Conc 34 g/dL (31-36); Mean Corpuscular Hemoglobin 31 pg (27-31); Mean Corpuscular Volume 94 fL (80-97); Mean Platelet Volume 10.2 fL (7.4-10.4); Nucleated Red Blood Cells % 0.1; Platelet Count 262 10^3/uL (150-450); Red Blood Count 3.39 10^6 /uL (3.70-4.87); Red Cell Distribution Width 14 % (10-15); White Blood Count 8.7 10^3/uL (3.5-10.8)
[2021-11-02 06:56] LABS: eGFR CKD-EPI 46.1 (>60)
[2021-11-02] MEDS: Heparin DRIP 25,000 UNITS BAG 25,000 UNITS/500 ML BAG IV SCH (07:46)
[2021-11-02 08:29] LABS: Troponin I 1.33 ng/mL (<0.03)
[2021-11-02 08:33] LABS: Calcium 7.7 mg/dL (8.6-10.3); Potassium 3.9 mmol/L (3.5-5.0)
[2021-11-02 13:17] LABS: Troponin I 1.39 ng/mL (<0.03)
[2021-11-02] MEDS ORDERED: Nitroglycerin 0.4 mg/hr PATCH (10 mg) TRANSDERM ONE (16:32)
[2021-11-02 18:57] LABS: Troponin I 1.23 ng/mL (<0.03)
[2021-11-02 19:11] LABS: HDL Cholesterol 29.7 mg/dL
[2021-11-03] MEDS ORDERED: Nitro Patch Removal Reminder PATCH OFF ONE (07:00)
[2021-11-03 07:42] LABS: ABS Eosinophils 0.1 10^3/ul (0-0.6); ABS Monocytes 0.9 10^3/ul (0-0.8); ABS Neutrophils 5.3 10^3/ul (1.5-7.7); Eosinophil % 1.3 %; Hematocrit 33 % (35-47); Hemoglobin 11.1 g/dL (12.0-16.0); Lymphocyte % 23.7 %; Mean Corpuscular HGB Conc 33 g/dL (31-36); Mean Corpuscular Hemoglobin 31 pg (27-31); Mean Corpuscular Volume 94 fL (80-97); Mean Platelet Volume 9.8 fL (7.4-10.4); Platelet Count 278 10^3/uL (150-450); Red Blood Count 3.55 10^6 /uL (3.70-4.87); Red Cell Distribution Width 14 % (10-15); White Blood Count 8.4 10^3/uL (3.5-10.8)
[2021-11-04 03:51] LABS: Activated Partial Thrombo Time 87.4 seconds (26.0-38.0)
[2021-11-04 03:54] LABS: ABS Basophils 0.1 10^3/ul (0-0.2); ABS Eosinophils 0.1 10^3/ul (0-0.6); ABS Lymphocytes 2.2 10^3/ul (1.0-4.8); ABS Monocytes 0.7 10^3/ul (0-0.8); ABS Neutrophils 4.5 10^3/ul (1.5-7.7); Eosinophil % 1.6 %; Hematocrit 32 % (35-47); Hemoglobin 10.4 g/dL (12.0-16.0); Lymphocyte % 28.3 %; Mean Corpuscular HGB Conc 33 g/dL (31-36); Mean Corpuscular Hemoglobin 31 pg (27-31); Mean Corpuscular Volume 95 fL (80-97); Mean Platelet Volume 10.1 fL (7.4-10.4); Platelet Count 252 10^3/uL (150-450); Red Blood Count 3.33 10^6 /uL (3.70-4.87); Red Cell Distribution Width 14 % (10-15); White Blood Count 7.6 10^3/uL (3.5-10.8)
[2021-11-04 04:01] LABS: C Reactive Protein 10.35 mg/L (<8.01); Calcium 8.5 mg/dL (8.6-10.3); Magnesium 1.8 mg/dL (1.9-2.7); Potassium 3.9 mmol/L (3.5-5.0); eGFR CKD-EPI 59.1 (>60)
[2021-11-04] MEDS: Heparin DRIP 25,000 UNITS BAG 25,000 UNITS/500 ML BAG IV SCH (04:19)
[2021-11-04] MEDS ORDERED: Magnesium Sulfate 2 gm BAG 2 GM/50 ML BAG IVPB ONE (06:32)
[2021-11-04 06:39] LABS: INR 1.24 (0.86-1.15)
[2021-11-04 12:38] VITALS: BP 120/63
== END 2021-11-04 17:50 | disposition home or self-care (01) | DRG 281 ==
LOC: ED 22:39 → SUATTDRO 11-02 05:52 → EDHOLD 11-02 05:52 → MEDTELE 11-02 08:09
PROVIDERS: ADMIT Student in an Organized Health Care Education/Training Program; ATTEND Internal Medicine

== ENCOUNTER 2024-07-16 18:33 | Observation (INO) ==
[2024-07-16 19:13] LABS: ABS Basophils 0.1 10^3/uL (0.0-0.1); ABS Eosinophils 0.2 10^3/uL (0.0-0.5); ABS Lymphocytes 2.1 10^3/uL (1.0-4.8); ABS Monocytes 0.6 10^3/uL (0.0-0.9); ABS Neutrophils 4.4 10^3/uL (1.5-7.6); ABS Nucleated RBC 0.01 10^3/ul; Eosinophil % 2.3 %; Hematocrit 40.8 % (35-45); Hemoglobin 13.5 g/dL (11.5-14.3); Lymphocyte % 28.5 %; Mean Corpuscular Hemoglobin 31.5 pg (27-33); Mean Corpuscular Hgb Conc 33.1 g/dL (31-36); Mean Corpuscular Volume 95.2 fL (80-97); Mean Platelet Volume 9.3 fL (7.5-11.2); Nucleated Red Blood Cells % 0.1 %/100WBC (0.0-0.8); Platelet Count 252 10^3/uL (150-450); Red Blood Count 4.28 10^6/uL (3.63-4.92); Red Cell Distribution Width 14.2 % (12-17); White Blood Count 7.3 10^3/uL (3.8-11.8)
[2024-07-16 19:21] LABS: INR 0.99 (0.85-1.14)
[2024-07-16 19:40] LABS: High Sens Troponin Baseline 10 pg/mL (<15)
[2024-07-16 20:03] LABS: ALT 12 U/L (7-52); Albumin 4.3 g/dL (3.2-5.2); Albumin/Globulin Ratio 1.5 (1-3); Alkaline Phosphatase 83 U/L (35-149); Anion Gap 7 mmol/L (2-16); Blood Urea Nitrogen 17 mg/dL (6-24); CO2 Carbon Dioxide 29 mmol/L (22-32); Calcium 9.5 mg/dL (8.6-10.3); Chloride 104 mmol/L (101-111); Creatinine, Serum 1.01 mg/dL (0.51-0.95); Globulin 2.8 g/dL (2-4); Glucose 91 mg/dL (70-100); Sodium 140 mmol/L (135-145); Total Bilirubin 0.5 mg/dL (0.2-1.0); Total Protein 7.1 g/dL (6.4-8.9); eGFR CKD-EPI 54.6 (>60)
[2024-07-16 20:39] LABS: High Sensitivity Troponin 1 Hr 10 pg/mL (<15)
[2024-07-16 21:39] LABS: Urine Appearance Turbid; Urine Bilirubin Negative (Negative); Urine Blood Negative (Negative); Urine Color Colorless; Urine Glucose Negative (Negative); Urine Ketones Negative (Negative); Urine Nitrite 2+ (Negative); Urine Protein Negative (Negative); Urine Specific Gravity 1.012 (1.002-1.030); Urine Urobilinogen Negative (Negative); Urine pH 6.5 (5.0-8.0)
[2024-07-16 21:45] LABS: Urine Bacteria 1+ /HPF (Absent); Urine Red Blood Cell Trace(0-2/hpf) /HPF (0-Trace); Urine Squamous Epithelial Cell Present /HPF (Absent); Urine White Blood Cell 3+(>20/hpf) /HPF (0-Trace)
[2024-07-17] MEDS: cefTRIAXone 1 gm/50 mL D5W 1 GM/50 ML BAG IV ONE (00:12)
[2024-07-17] MEDS ORDERED: Sulfur Hexaflouride MICROSPHR 25 MG VIAL IV PRN ×2 (07:01→13:04)
[2024-07-17] MEDS ORDERED: Heparin 5000 UNITS/ML 1 mL VIAL SUBCUT SCH (09:00)
[2024-07-17] MEDS: Heparin 5000 UNITS/ML 1 mL VIAL SUBCUT SCH (09:43)
[2024-07-17] MEDS ORDERED: Heparin 5000 UNITS/ML 1 mL VIAL IV SCH (10:00)
[2024-07-17] MEDS ORDERED: Metoprolol Tartrate 5 mg VIAL 5 ml VIAL (1 mg/ml) ONE (10:28)
[2024-07-17] MEDS ORDERED: Atropine 0.1 MG/ML 10 ml SYR (1 mg) ONE (10:28)
[2024-07-17] MEDS ORDERED: Sulfur Hexaflouride MICROSPHR 25 MG VIAL ONE (10:38)
[2024-07-17] MEDS ORDERED: DOBUTamine 2000 MCG/ML IVPREMX 500 MG/250 ML BAG IV ONE (11:01)
[2024-07-17] MEDS: hydrALAZINE 20 mg/ml 1 ML Vial IV IV SLOW PU ONE (11:36)
[2024-07-17] MEDS: Sulfur Hexaflouride MICROSPHR 25 MG VIAL IV PRN (11:56)
[2024-07-17 13:30] LABS: ABS Basophils 0.1 10^3/uL (0.0-0.1); ABS Eosinophils 0.2 10^3/uL (0.0-0.5); ABS Lymphocytes 1.8 10^3/uL (1.0-4.8); ABS Monocytes 0.4 10^3/uL (0.0-0.9); Eosinophil % 2.7 %; Hematocrit 40.3 % (35-45); Hemoglobin 13.2 g/dL (11.5-14.3); Lymphocyte % 28.2 %; Mean Corpuscular Hemoglobin 31.6 pg (27-33); Mean Corpuscular Hgb Conc 32.8 g/dL (31-36); Mean Corpuscular Volume 96.1 fL (80-97); Nucleated Red Blood Cells % 0.1 %/100WBC (0.0-0.8); Platelet Count 242 10^3/uL (150-450); Red Blood Count 4.19 10^6/uL (3.63-4.92); Red Cell Distribution Width 14.2 % (12-17); White Blood Count 6.4 10^3/uL (3.8-11.8)
[2024-07-17 14:23] LABS: Creatinine, Serum 0.86 mg/dL (0.51-0.95); HDL Cholesterol 55.9 mg/dL; eGFR CKD-EPI 66.2 (>60)
[2024-07-17] MEDS: Heparin 5000 UNITS/ML 1 mL VIAL SUBCUT ONE (20:04)
[2024-07-17] MEDS: cefTRIAXone 1 gm/50 mL D5W 1 GM/50 ML BAG IV SCH (21:44)
[2024-07-18 06:11] LABS: Calcium 8.9 mg/dL (8.6-10.3); Creatinine, Serum 0.93 mg/dL (0.51-0.95); Potassium 3.9 mmol/L (3.5-5.0); eGFR CKD-EPI 60.2 (>60)
[2024-07-18] MEDS: Heparin 5000 UNITS/ML 1 mL VIAL SUBCUT SCH (08:58)
[2024-07-18] MEDS: Isosorbide Mononit ER 30mg TAB PO SCH (11:11)
[2024-07-18 13:35] VITALS: BP 124/75
== END 2024-07-18 15:00 | disposition home or self-care (01) ==
LOC: ED 18:33 → EDHOLD 18:33 → SUATTDRO 22:50 → MED 07-17 09:41
PROVIDERS: ADMIT Hospitalist; ATTEND Internal Medicine